=== PATIENT | male | born 1950 | race Caucasian/White ===

== ENCOUNTER 2018-10-21 18:06 | Emergency (ER) | payer OTHER ==
--- OUTSIDE RECORDS SUMMARY | 2018-10-21 18:10 | XMS REPORT | Clinical Summary ---
:1950 Author Organization [facility] Address [address] [place] [address] Care Team Providers Name Role Phone Kilo Graham MD Primary Care Provider Allergies Active Allergy Reactions Severity Noted Date Comments Furosemide Hives Medium 07/30/2018 Penicillins Hives Medium 07/30/2018 Medications Medication Sig Dispensed Refills Start Date End Date Status aspirin 81 MG EC Take 81 mg by 0 Active tablet mouth daily. potassium chloride Take 60 mEq 0 Active SA (KLOR-CON M20) by mouth 20 MEQ tablet daily . budesonide-formoter Inhale 2 0 Active ol (SYMBICORT) puffs by 160-4.5 mouth via mcg/actuation inhaler 2 inhaler (two) times daily. metoprolol Take 1 tablet 60 tablet 2 08/31/2018 08/31/2019 Active (LOPRESSOR) 25 MG (25 mg total) tablet by mouth 2 (two) times daily. eplerenone (INSPRA) Take 25 mg by 0 Active 25 MG tablet mouth daily. torsemide (DEMADEX) Take 10 mg by 0 Active 10 MG tablet mouth daily. metOLazone Take 5 mg by 0 08/14/2018 Discontinued (ZAROXOLYN) 5 MG mouth 5 Mg/ tablet TWICE A WEEK . eplerenone (INSPRA) Take 25 mg by 0 08/14/2018 Discontinued 25 MG tablet mouth daily. torsemide (DEMADEX) Take 10 mg by 0 08/14/2018 Discontinued 20 MG tablet mouth daily. metoprolol Take 50 mg by 0 08/31/2018 Discontinued (LOPRESSOR) 50 MG mouth daily . tablet atorvastatin Take 10 mg by 0 08/14/2018 Discontinued (LIPITOR) 10 MG mouth nightly tablet . ramipril (ALTACE) 5 Take 5 mg by 0 08/14/2018 Discontinued MG capsule mouth daily. roflumilast Take 500 mcg 0 08/14/2018 Discontinued (DALIRESP) 500 mcg by mouth Tab tablet daily. mINOCYCLine Take 1 10 capsule 0 08/02/2018 08/07/2018 (MINOCIN,DYNACIN) capsule (100 100 MG capsule mg total) by mouth 2 (two) times daily for 5 days. hydrOXYzine Take 1 tablet 30 tablet 1 08/14/2018 09/14/2018 Discontinued (ATARAX) 25 MG (25 mg total) tablet by mouth 3 (three) times daily as needed for Itching. levoFLOXacin Take 1 tablet 9 tablet 0 08/31/2018 09/09/2018 (LEVAQUIN) 500 MG (500 mg tablet total) by mouth daily for 9 days. Active Problems Problem Noted Date Malignant neoplasm of body of pancreas 09/24/2018 Sepsis 08/25/2018 Pancreatic mass 08/25/2018 Acute urinary tract infection 08/24/2018 Lung nodule 08/13/2018 Left renal mass 08/13/2018 Morbid obesity 08/13/2018 Hyperbilirubinemia 08/11/2018 Obstructive jaundice 08/10/2018 Hypomagnesemia 08/10/2018 Chronic combined systolic and diastolic heart failure 08/10/2018 SHIRA on CPAP 08/10/2018 Resolved Problems Problem Noted Date Resolved Date Multiple renal cysts 08/13/2018 08/25/2018 OLGA (acute kidney injury) 08/10/2018 08/25/2018 Hyponatremia 08/10/2018 08/25/2018 COPD not affecting current episode of care 08/10/2018 08/25/2018 Cardiomyopathy 08/02/2018 08/25/2018 Encounters Date Type Specialty Care Team Description 09/24/2018 Anesthesia Event Aria Wagner, FOOT CASTER 09/24/2018 Surgery Minda Christensen BRONCHOSCOPY,ENDOB MD Antonio RONCHIAL ULTRASOUND (EBUS) TRANSTRACH/ TRANSBRONCH SAMPLING 09/24/2018 Hospital Minda Christensen Encounter MD Antonio 09/14/2018 Hospital Pre-Admission Testing Resource, [facility] Encounter Preadmit Phone 08/24/2018 - [facility] Internal Ricci Ball Acute urinary tract infection (Primary Dx); 08/31/2018 Encounter Medicine MD Franny OLGA (acute kidney injury) ([facility]); Kellie Puga, Leukocytosis, unspecified type; Weakness; Chantel, Sepsis, due to unspecified organism ([facility]); Leslie Blanton MD Hypotension, unspecified hypotension type; Shamsee, Hypomagnesemia; Shmuel-Isaiah SHIRA on CPAP; MD Jeffery Pancreatic mass; Hematuria, unspecified type; Pyuria; Chronic combined systolic and diastolic heart failure ([facility]); Electrolyte abnormality; Malignant neoplasm of pancreas, unspecified location of malignancy ([facility] ); Lung mass; E. coli septicemia ([facility]); Sepsis due to Escherichia coli ([facility]); Acute cystitis with hematuria; PVC (premature ventricular contraction); Pulmonary nodule; Hyperbilirubinemia; Morbid obesity ([facility]); Biliary obstruction; E coli bacteremia; Lung nodule; Obstructive jaundice 08/24/2018 Travel 08/17/2018 Anesthesia Event Gastroenterology Keira Garsia MD 08/17/2018 Surgery Gastroenterology [facility] ERCP,STENT REMOVAL [place] [facility] [place] 08/12/2018 Anesthesia Event Gastroenterology Leobardo Leos MD 08/12/[address] [facility],PAPILLOTOMY Louis 08/11/2018 Orders Only General Internal Medicine 08/10/2018 - [facility] Obstructive jaundice; 08/14/2018 Encounter Medicine [facility] OLGA (acute kidney injury) ([facility]); Cedric Tate Chronic combined systolic and diastolic heart failure ( [facility]); MD Kishor COPD not affecting current episode of care ([facility]); Hypomagnesemia; Hyponatremia; SHIRA on CPAP; Left renal mass; Lung nodule; Morbid obesity ([facility]) 08/10/2018 Travel 08/02/2018 [facility] [employer] KRISTOPHER CHO (SINGLE LEAD) 08/02/2018 Anesthesia Event Colby Corbett MD 08/02/2018 [facility] Yoel Rosado, Encounter Manjula Sesay MD after 10/20/2017 Social History Tobacco Use Types Packs/Day Years Used Date Current Some Day Smoker 0.5 48 Smokeless Tobacco: Never Used Alcohol Use Drinks/Week oz/Week Comments Yes occasional Alcohol Habits Answer Date Recorded How often do you have a drink containing alcohol? Never 07/30/2018 How many drinks containing alcohol do you have on a typical Not asked day when you are drinking? How often do you have six or more drinks on one occasion? Not asked Sex Assigned at Date Recorded Male 08/22/2018 3:40 PM [facility] Job Start Date Occupation Industry Not on file Not on file Not on file Travel History Travel Start Travel End No recent travel history available. Last Filed Vital Signs Vital Sign Reading Time Taken Blood Pressure 130/90 09/24/2018 2:40 PM CDT Pulse 84 09/24/2018 2:40 PM CDT Temperature 36.6 C (97.9 F) 09/24/2018 1:46 PM CDT Respiratory Rate 20 09/24/2018 2:40 PM CDT Oxygen Saturation 95% 09/24/2018 2:40 PM CDT Inhaled Oxygen Concentration 35% 09/24/2018 12:22 PM CDT Weight 132.5 kg (292 lb 1.6 oz) 09/24/2018 5:55 AM CDT Height 188 cm (6' 2") 09/24/2018 5:55 AM CDT Body Mass Index 37.5 09/24/2018 5:55 AM CDT Plan of Treatment Not on file Implants Implanted Type Area Home Care Consultant Device Shelf Model / Identifier Expiration Serial / Date Lot Env Absrb Antibact Tyrx Med - [id number] Cardiovascular [employer]:CARD [id number] / Implanted: Qty: 1 on 08/02/2018 by Manjula Richards MD RHY: DISEASE MGT / [id number] Stent Bili Rx Wallflx 10x60 - [id number] Stents-Peripheral [employer]:ENDO 06/22/2020 [id number] / Implanted: Qty: 1 on 08/17/2018 by Christian Silver [id number] / [id number] Icd [employer] 09/02/2019 VISIA AF MRI VR SURESCAN / Implanted: Qty: 1 on 08/02/2018 by Manjula Richards MD ( REPLACEMENT) [id number] / [id number] Explanted Type Area Home Care Consultant Device Shelf Model / Identifier Expiration Serial / Lot Date Stent Bili Duodenal [id number] - [id number] Stents-P N/A: [employer]: ENDO 02/08/2020 3432 / Implanted: Qty: 1 on 08/12/2018 by Christian Silver eriphera Bile [id number] / Explanted: Qty: 1 on 08/17/2018 l Duct [id number] Procedures Procedure Name Priority Date/Time Associated Diagnosis Comments ARRYTHMIA IMPLANT 09/29/2018 5:50 REPORT - SCAN PM CDT RHYTHM STRIP - SCAN 09/27/2018 4:02 PM CDT TRANSFUSION SERVICE 09/25/2018 5:53 REPORT - SCAN PM CDT XR CHEST 1 VIEW STAT 09/24/2018 12:56 Results for this PORTABLE/BEDSIDE PM CDT procedure are in the results section. REPORT OF PROCEDURE 09/24/2018 11:37 - ENDOSCOPY URL AM CDT AFB CULTURE + SMEAR Routine 09/24/2018 11:17 AM CDT BRONCHIAL CULTURE + Routine 09/24/2018 11:17 Results for this GRAM STAIN AM CDT procedure are in the results section. FUNGUS CULTURE + Routine 09/24/2018 11:17 Results for this SMEAR AM CDT procedure are in the results section. SPIN/CONCENTRATION Routine 09/24/2018 11:17 Results for this CHARGE AM CDT procedure are in the results section. FL FRONT DESK MONITOR IN OR Routine 09/24/2018 11:10 Results for this 30 MINUTE AM CDT procedure are in INCREMENTS the results section. EBUS FNA REQUEST Routine 09/24/2018 10:02 Results for this AM CDT procedure are in the results section. FINE NEEDLE AP Routine 09/24/2018 10:02 Results for this ASPIRATE BY EBUS AM CDT procedure are in the results section. EBUS FNA REQUEST Routine 09/24/2018 9:54 Results for this AM CDT procedure are in the results section. FINE NEEDLE AP Routine 09/24/2018 9:54 Results for this ASPIRATE BY EBUS AM CDT procedure are in the results section. EBUS FNA REQUEST Routine 09/24/2018 9:50 Results for this AM CDT procedure are in the results section. FINE NEEDLE AP Routine 09/24/2018 9:50 Results for this ASPIRATE BY EBUS AM CDT procedure are in the results section. EBUS FNA REQUEST Routine 09/24/2018 9:49 Results for this AM CDT procedure are in the results section. FINE NEEDLE AP Routine 09/24/2018 9:49 Results for this ASPIRATE BY EBUS AM CDT procedure are in the results section. TISSUE EXAM AP Routine 09/24/2018 9:46 Results for this AM CDT procedure are in the results section. BRONCHOSCOPY,ENDOBR 09/24/2018 8:25 Malignant neoplasm of ONCHIAL ULTRASOUND AM CDT body of pancreas (HCC) (EBUS) DIAGNOSTIC/ Lung nodule THERAPEUTIC Mediastinal lymphadenopathy Special Needs (RADIAL PROBE, C-ARM, SUPER DIMENSION, OLYMPUS/MERIT REP MAY BE PRESENT) BRONCHOSCOPY,SUPER D 09/24/2018 8:25 AM CDT Malignant neoplasm of body of pancreas (HCC) Lung nodule Mediastinal lymphadenopathy Special Needs (RADIAL PROBE, C-ARM, SUPER DIMENSION, OLYMPUS/MERIT REP MAY BE PRESENT) BRONCHOSCOPY,TRANSBRONCHIAL LUNG 09/24/2018 8:25 Malignant neoplasm of body BIOPSY AM CDT of pancreas (HCC) Lung nodule Mediastinal lymphadenopathy Special Needs (RADIAL PROBE, C-ARM, SUPER DIMENSION, OLYMPUS/MERIT REP MAY BE PRESENT) BRONCHOSCOPY,DILATATION 09/24/2018 8:25 AM CDT Malignant neoplasm of body of pancreas (HCC) Lung nodule Mediastinal lymphadenopathy Special Needs (RADIAL PROBE, C-ARM, SUPER DIMENSION, OLYMPUS/MERIT REP MAY BE PRESENT) BRONCHOSCOPY,CRYOTHERAPY TREATMENT 09/24/2018 8:25 AM Malignant neoplasm of body FOR STENOSIS CDT of pancreas (HCC) Lung nodule Mediastinal lymphadenopathy Special Needs (RADIAL PROBE, C-ARM, SUPER DIMENSION, OLYMPUS/MERIT REP MAY BE PRESENT) PROCEDURE W/ C-ARM 09/24/2018 8:25 AM CDT Malignant neoplasm of body of pancreas (HCC) Lung nodule Mediastinal lymphadenopathy Special Needs (RADIAL PROBE, C-ARM, SUPER DIMENSION, OLYMPUS/MERIT REP MAY BE PRESENT) BRONCHOSCOPY,ENDOBRONCHIAL 09/24/2018 8:25 AM Malignant neoplasm of body ULTRASOUND (EBUS) TRANSTRACH/ CDT of pancreas (HCC) TRANSBRONCH SAMPLING Lung nodule Mediastinal lymphadenopathy Special Needs (RADIAL PROBE, C-ARM, SUPER DIMENSION, OLYMPUS/MERIT REP MAY BE PRESENT) ABORH, MANUAL STAT 09/24/2018 7:07 AM CDT CBC W/PLT COUNT & AUTO STAT 09/24/2018 6:55 AM CDT Results for this DIFFERENTIAL procedure are in the results section. TYPE AND SCREEN, AUTOMATED STAT 09/24/2018 6:55 AM CDT PROTHROMBIN TIME/INR STAT 09/24/2018 6:55 AM CDT BASIC METABOLIC PANEL (7) STAT 09/24/2018 6:55 AM CDT CBC W/PLT COUNT & AUTO STAT 09/24/2018 6:55 AM CDT Results for this DIFFERENTIAL procedure are in the results section. POCT-GLUCOSE METER Routine 09/24/2018 5:58 AM CDT RHYTHM STRIP - SCAN 09/02/2018 12:21 PM [facility] REPORT OF PROCEDURE - 09/02/2018 12:20 PM [facility] ENDOSCOPY SCAN CT CHEST WITH HIGH STAT 08/30/2018 6:26 PM [facility] Results for this RESOLUTION/ILD procedure are in the results section. CBC W/PLT COUNT & AUTO Routine 08/30/2018 5:48 AM [facility] Results for this DIFFERENTIAL procedure are in the results section. CBC W/PLT COUNT & AUTO Routine 08/30/2018 5:48 AM [facility] Results for this DIFFERENTIAL procedure are in the results section. COMPREHENSIVE METABOLIC Routine 08/30/2018 5:48 AM [facility] Results for this PANEL procedure are in the results section. PROTHROMBIN TIME/INR Routine 08/30/2018 5:48 AM [facility] APTT Routine 08/30/2018 5:48 AM [facility] MAGNESIUM Routine 08/29/2018 4:23 AM [facility] BASIC METABOLIC PANEL (7) Routine 08/28/2018 4:00 AM [facility] (CELLAVISION MANUAL DIFF) Routine 08/27/2018 4:27 AM [facility] CBC W/PLT COUNT & AUTO Routine 08/27/2018 4:27 AM [facility] Results for this DIFFERENTIAL procedure are in the results section. CBC W/PLT COUNT & AUTO Routine 08/27/2018 4:27 AM [facility] Results for this DIFFERENTIAL procedure are in the results section. MAGNESIUM Routine 08/27/2018 4:27 AM [facility] PHOSPHORUS Routine 08/27/2018 4:27 AM [facility] HEPATIC FUNCTION PANEL Routine 08/27/2018 4:27 AM [facility] BASIC METABOLIC PANEL (7) Routine 08/27/2018 4:[address] ABDOMEN/PELVIS WITH IV Routine 08/27/2018 2:03 AM [facility] Results for this CONTRAST procedure are in the results section. BLOOD CULTURE Routine 08/26/2018 4:02 PM [facility] BLOOD CULTURE Routine 08/26/2018 4:02 PM [facility] URINALYSIS W/ REFLEX URINE Routine 08/26/2018 3:38 PM [facility] Results for this CULTURE procedure are in the results section. URINE CULTURE ZION 08/26/2018 3:18 PM [facility] CBC W/PLT COUNT & AUTO Routine 08/26/2018 5:07 AM [facility] Results for this DIFFERENTIAL procedure are in the results section. CBC W/PLT COUNT & AUTO Routine 08/26/2018 5:07 AM [facility] Results for this DIFFERENTIAL procedure are in the results section. MAGNESIUM Routine 08/26/2018 5:04 AM [facility] PHOSPHORUS Routine 08/26/2018 5:04 AM [facility] HEPATIC FUNCTION PANEL Routine 08/26/2018 5:04 AM [facility] BASIC METABOLIC PANEL (7) Routine 08/26/2018 5:04 AM [facility] LACTIC ACID, VENOUS STAT 08/26/2018 5:04 AM [facility] CRITICAL CARE Routine 08/25/2018 8:05 PM [facility] CBC W/PLT COUNT & AUTO Routine 08/25/2018 11:21 AM [facility] Results for this DIFFERENTIAL procedure are in the results section. CREATINE KINASE (CK) Routine 08/25/2018 11:21 AM [facility] TROPONIN I Routine 08/25/2018 11:21 AM [facility] CBC W/PLT COUNT & AUTO Routine 08/25/2018 11:21 AM [facility] Results for this DIFFERENTIAL procedure are in the results section. MAGNESIUM Routine 08/25/2018 11:21 AM [facility] PHOSPHORUS Routine 08/25/2018 11:21 AM [facility] HEPATIC FUNCTION PANEL Routine 08/25/2018 11:21 AM [facility] US ABDOMEN COMPLETE STAT 08/25/2018 8:50 AM [facility] BASIC METABOLIC PANEL (7) STAT 08/25/2018 4:03 AM [facility] LACTIC ACID, VENOUS STAT 08/25/2018 4:03 AM [facility] URINALYSIS W/ MICROSCOPIC STAT 08/24/2018 8:54 PM [facility] XR CHEST 1 VIEW STAT 08/24/2018 8:00 PM [facility] Results for this PORTABLE/BEDSIDE procedure are in the results section. CBC W/PLT COUNT & AUTO STAT 08/24/2018 7:51 PM [facility] Results for this DIFFERENTIAL procedure are in the results section. BASIC METABOLIC PANEL (7) STAT 08/24/2018 7:51 PM [facility] CBC W/PLT COUNT & AUTO STAT 08/24/2018 7:51 PM [facility] Results for this DIFFERENTIAL procedure are in the results section. PHOSPHORUS STAT 08/24/2018 7:51 PM [facility] MAGNESIUM STAT 08/24/2018 7:51 PM [facility] LIPASE STAT 08/24/2018 7:51 PM [facility] HEPATIC FUNCTION PANEL STAT 08/24/2018 7:51 PM [facility] PROCALCITONIN STAT 08/24/2018 7:51 PM [facility] LACTIC ACID, VENOUS STAT 08/24/2018 7:51 PM [facility] AMMONIA STAT 08/24/2018 7:51 PM [facility] APTT STAT 08/24/2018 7:30 PM [facility] PROTHROMBIN TIME/INR STAT 08/24/2018 7:30 PM [facility] BLOOD CULTURE IDENTIFICATION Routine 08/24/2018 7:29 PM [facility] Results for this PANEL procedure are in the results section. BLOOD CULTURE STAT 08/24/2018 7:29 PM [facility] BLOOD CULTURE STAT 08/24/2018 7:29 PM [facility] ECG 12-LEAD Routine 08/24/2018 6:46 PM [facility] ECG 12-LEAD Routine 08/24/2018 6:46 PM [facility] Procedure Note - Interface, External Ris In - 08/24/2018 8:32 PM [facility] Ventricular Rate 105 BPM Atrial Rate 105 BPM P-R Interval 158 ms QRS Duration 84 ms Q-T Interval 362 ms QTC Calculation(Bazett) 478 ms P [place] 20 degrees R [place] 93 degrees T [place] 30 degrees Sinus tachycardia with frequent Premature ventricular complexes Rightward axis Cannot rule out Anterior infarct (cited on or before 23-JAN-1993) Abnormal ECG When compared with ECG of 12-AUG-2018 08:10, Significant changes have occurred CARDIAC CATH REPORT 08/20/2018 1:31 PM - SCAN [facility] REPORT OF PROCEDURE 08/20/2018 1:31 PM - ENDOSCOPY SCAN [facility] ARRYTHMIA IMPLANT 08/20/2018 1:31 PM REPORT - SCAN [facility] REPORT OF PROCEDURE 08/17/2018 4:59 PM - ENDOSCOPY URL [facility] FL ERCP Routine 08/17/2018 4:47 PM Results for this [facility] procedure are in the results section. ERCP,BILIARY STENT 08/17/2018 3:00 PM Dilation of common [facility] bile duct Special Needs (C-ARM) ERCP,BALLOON SWEEPING 08/17/2018 3:00 PM [facility] Dilation of common bile duct Special Needs (C-ARM) PROCEDURE W/ C-ARM 08/17/2018 3:00 PM [facility] Dilation of common bile duct Special Needs (C-ARM) ERCP,STENT REMOVAL 08/17/2018 3:00 PM [facility] Dilation of common bile duct Special Needs (C-ARM) POCT-GLUCOSE METER Routine 08/14/2018 8:10 Results for this AM [facility] procedure are in the results section. CBC W/PLT COUNT & STAT 08/14/2018 8:08 Results for this AUTO DIFFERENTIAL AM [facility] procedure are in the results section. CBC W/PLT COUNT & STAT 08/14/2018 8:08 Results for this AUTO DIFFERENTIAL AM [facility] procedure are in the results section. MAGNESIUM STAT 08/14/2018 8:08 Results for this AM [facility] procedure are in the results section. COMPREHENSIVE STAT 08/14/2018 8:08 Results for this METABOLIC PANEL AM [facility] procedure are in the results section. CBC (HEMOGRAM ONLY) Routine 08/13/2018 5:28 Results for this AM [facility] procedure are in the results section. COMPREHENSIVE Routine 08/13/2018 5:28 Results for this METABOLIC PANEL AM [facility] procedure are in the results section. MAGNESIUM Routine 08/13/2018 5:28 Results for this AM [facility] procedure are in the results section. CT ABDOMEN/PELVIS Routine 08/13/2018 4:22 Results for this WITH IV CONTRAST AM [facility] procedure are in the results section. CT CHEST WITH IV Routine 08/13/2018 4:22 Results for this CONTRAST AM [facility] procedure are in the results section. REPORT OF PROCEDURE - 08/12/2018 7:02 ENDOSCOPY URL PM [facility] REPORT OF PROCEDURE - 08/12/2018 6:50 ENDOSCOPY URL PM [facility] FL ERCP Routine 08/12/2018 6:31 Results for this PM [facility] procedure are in the results section. CYTOLOGY REQUEST Routine 08/12/2018 6:02 Results for this PM [facility] procedure are in the results section. CYTOLOGY AP Routine 08/12/2018 6:02 Results for this PM [facility] procedure are in the results section. FINE NEEDLE ASPIRATE Routine 08/12/2018 5:11 Results for this (FNA) REQUEST PM [facility] procedure are in the results section. FINE NEEDLE AP Routine 08/12/2018 5:11 Results for this ASPIRATION BY PM [facility] procedure are in CLINICIAN the results section. TISSUE EXAM AP Routine 08/12/2018 4:44 Results for this PM [facility] procedure are in the results section. ERCP,BILIARY STENT 08/12/2018 4:00 Jaundice PM [facility] Biliary obstruction Special Needs (POSSIBLE INTUBATION, C-ARM, LINEAR SCOPE) UPPER ENDOSCOPY,BIOPSY 08/12/2018 4:00 PM [facility] Jaundice Biliary obstruction Special Needs (POSSIBLE INTUBATION, C-ARM, LINEAR SCOPE) PROCEDURE W/ C-ARM 08/12/2018 4:00 PM [facility] Jaundice Biliary obstruction Special Needs (POSSIBLE INTUBATION, C-ARM, LINEAR SCOPE) UPPER ENDOSCOPY,FNA 08/12/2018 4:00 PM [facility] Jaundice W/ULTRASOUND Biliary obstruction Special Needs (POSSIBLE INTUBATION, C-ARM, LINEAR SCOPE) ERCP,PAPILLOTOMY 08/12/2018 4:00 PM [facility] Jaundice Biliary obstruction Special Needs (POSSIBLE INTUBATION, C-ARM, LINEAR SCOPE) MAGNESIUM Routine 08/12/2018 2:29 PM [facility] BASIC METABOLIC PANEL (7) Routine 08/12/2018 2:29 PM [facility] ECG 12-LEAD Routine 08/12/2018 8:10 AM [facility] MAGNESIUM Routine 08/12/2018 5:48 AM [facility] COMPREHENSIVE METABOLIC Routine 08/12/2018 5:48 AM [facility] Results for this PANEL procedure are in the results section. CBC (HEMOGRAM ONLY) Routine 08/12/2018 5:48 AM [facility] OSMOLALITY, URINE Routine 08/11/2018 7:32 PM [facility] SODIUM, RANDOM URINE Routine 08/11/2018 7:32 PM [facility] NM CARDIAC PET PERFUSION ZION 08/11/2018 11:10 AM [facility] Results for this REST AND/OR STRESS procedure are in the results section. TREADMILL Routine 08/11/2018 11:07 AM [facility] Results for this TOLERANCE(NON-NUCLEAR procedure are in the TREADMILL) results section. ECG 12-LEAD Routine 08/11/2018 11:05 AM [facility] ECG 12-LEAD Routine 08/11/2018 11:05 AM [facility] Procedure Note - Interface, External Ris In - 08/11/2018 11:31 AM [facility] Ventricular Rate 81 BPM Atrial Rate 81 BPM P-R Interval 212 ms QRS Duration 110 ms Q-T Interval 470 ms QTC Calculation(Bazett) 545 ms P [place] 68 degrees R [place] 86 degrees T [place] 60 degrees Sinus rhythm with marked sinus arrhythmia with 1st degree A-V block Septal infarct , age undetermined Prolonged QT Abnormal ECG ECG 12-LEAD Routine 08/11/2018 10:54 AM [facility] ECG 12-LEAD Routine 08/11/2018 10:54 AM [facility] Procedure Note - Interface, External Ris In - 08/11/2018 11:31 AM [facility] Ventricular Rate 95 BPM Atrial Rate 117 BPM QRS Duration 112 ms Q-T Interval 466 ms QTC Calculation(Bazett) 585 ms P [place] 67 degrees R [place] 87 degrees T [place] 53 degrees Undetermined rhythm Septal infarct , age undetermined Prolonged QT Abnormal ECG CBC W/PLT COUNT & AUTO Routine 08/11/2018 4:05 AM Results for this DIFFERENTIAL [facility] procedure are in the results section. CBC W/PLT COUNT & AUTO Routine 08/11/2018 4:05 AM Results for this DIFFERENTIAL [facility] procedure are in the results section. PHOSPHORUS Routine 08/11/2018 4:05 AM Results for this [facility] procedure are in the results section. MAGNESIUM Routine 08/11/2018 4:05 AM Results for this [facility] procedure are in the results section. COMPREHENSIVE METABOLIC Routine 08/11/2018 4:05 AM Results for this PANEL [facility] procedure are in the results section. B-TYPE NATRIURETIC Routine 08/11/2018 4:05 AM Results for this FACTOR (BNP) [facility] procedure are in the results section. CBC W/PLT COUNT & AUTO ZION 08/10/2018 3:26 PM Results for this DIFFERENTIAL [facility] procedure are in the results section. PROTHROMBIN TIME/INR ZION 08/10/2018 3:26 PM Results for this [facility] procedure are in the results section. PHOSPHORUS ZION 08/10/2018 3:26 PM Results for this [facility] procedure are in the results section. MAGNESIUM ZION 08/10/2018 3:26 PM Results for this [facility] procedure are in the results section. COMPREHENSIVE METABOLIC ZION 08/10/2018 3:26 PM Results for this PANEL [facility] procedure are in the results section. CBC W/PLT COUNT & AUTO ZION 08/10/2018 3:26 PM Results for this DIFFERENTIAL [facility] procedure are in the results section. AICD GENERATOR - REMOVE 08/02/2018 7:30 AM AICD at end of & REPLACE (SINGLE LEAD) [facility] battery life Case Notes (1) CASE POP6 MAGNESIUM STAT 08/02/2018 6:11 AM [facility] BASIC METABOLIC PANEL (7) STAT 08/02/2018 6:11 AM [facility] CBC (HEMOGRAM ONLY) STAT 08/02/2018 6:11 AM [facility] PROTHROMBIN TIME/INR STAT 08/02/2018 6:11 AM [facility] after 10/20/2017 Results ARRYTHMIA IMPLANT REPORT - SCAN (09/29/2018 5:50 PM CDT)Only the most recent of2 resultswithin the time period is included. Narrative Performed At RHYTHM STRIP - SCAN (09/27/2018 4:02 PM CDT)Only the most recent of2 resultswithin the time period is included. Narrative Performed At TRANSFUSION SERVICE REPORT - SCAN (09/25/2018 5:53 PM CDT) Narrative Performed At XR chest 1 view portable / bedside (09/24/2018 12:56 PM CDT)Only the most recent of2 resultswithin the time period is included. Narrative Performed At FINAL REPORT [facility] Portable chest. CLINICAL HISTORY: s/p RLL TBBX, cough, RULE OUT PTX. COMPARISON STUDY: August 24, 2018. FINDINGS: The cardiac silhouette is unremarkable. Sternotomy wires are seen. The pulmonary parenchyma demonstrates interstitial and airspace opacities, most pronounced in the right mid to lower lung field and more pronounced than on previous. A pacer device remains No pneumothorax is seen. Degenerative changes are noted. IMPRESSION: Worsening pulmonary opacities particularly in the right mid to lower lung field. This could represent pneumonia or bleeding in the right clinical setting. Signed: Alberto Otoole MD Report Verified Date/Time:09/24/2018 13:43:14 Reading Location: [address] Consult Reading Room Procedure Note Interface, External Ris In - 09/24/2018 1:45 PM CDT FINAL REPORT Portable chest. CLINICAL HISTORY: s/p RLL TBBX, cough, RULE OUT PTX. COMPARISON STUDY: August 24, 2018. FINDINGS: The cardiac silhouette is unremarkable. Sternotomy wires are seen. The pulmonary parenchyma demonstrates interstitial and airspace opacities, most pronounced in the right mid to lower lung field and more pronounced than on previous. A pacer device remains No pneumothorax is seen. Degenerative changes are noted. IMPRESSION: Worsening pulmonary opacities particularly in the right mid to lower lung field. This could represent pneumonia or bleeding in the right clinical setting. Signed: Alberto Otoole MD Report Verified Date/Time: 09/24/2018 13:43:14 Reading Location: [facility] Consult Reading Room Performing Organization Address City/State/Zipcode Phone Number GE RIS REPORT OF PROCEDURE - ENDOSCOPY URL (09/24/2018 11:37 AM CDT) Narrative Performed At Bronchial culture + gram stain (09/24/2018 11:17 AM CDT) Result 1+ Normal respiratory sofya [facility] Gram Stain Result <1+ WBCs [facility] Gram Stain Result No organisms seen [facility] Specimen BAL - Lung, Right Upper and Lower Lobes Performing Organization Address [facility]/Zipcode Phone Number [facility] [address] [place] [phone] [place] Fungus culture + smear (09/24/2018 11:17 AM CDT) Result No fungus isolated in 28 days [facility] Fungus Smear No fungi seen [facility] Specimen BAL - Lung, Right Upper and Lower Lobes Performing Organization Address City/[facility]/Zipcode Phone Number [facility] [address] [place] [address] [phone] [place] SPIN/CONCENTRATION CHARGE (09/24/2018 11:17 AM CDT) Concentration charged Done [facility] Specimen BAL - Lung, Right Upper and Lower Lobes Performing Organization Address [facility] Phone Number [facility] [address] [place] [phone] [place] aircraft mechanic electrical and radio in or 30 minute increments (09/24/2018 11:10 AM CDT) Narrative Performed At FINAL REPORT RIS Intraoperative fluoroscopy. CLINICAL HISTORY: surgical procedurd. FINDINGS: Zero fluoroscopically acquired images were acquired by the referring physician. An intraoperative verbal report was not requested. Fluoroscopy was not performed by the undersigned. Fluoroscopy time: 256 seconds. Zero images. Signed: Alberto Otoole MD Report Verified Date/Time:09/24/2018 13:58:14 Reading Location: [address] Consult Reading Room Procedure Note Interface, External Ris In - 09/24/2018 2:00 PM CDT FINAL REPORT Intraoperative fluoroscopy. CLINICAL HISTORY: surgical procedurd. FINDINGS: Zero fluoroscopically acquired images were acquired by the referring physician. An intraoperative verbal report was not requested. Fluoroscopy was not performed by the undersigned. Fluoroscopy time: 256 seconds. Zero images. Signed: Alberto Otoole MD Report Verified Date/Time: 09/24/2018 13:58:14 Reading Location: [facility] Consult Reading Room Performing Organization Address City/[facility]/Zipcode Phone Number GE RIS EBUS FNA REQUEST (09/24/2018 10:02 AM CDT)Only the most recent of4 resultswithin the time period is included. Cytology See Separate Report [facility] Specimen EBUS Fine Needle Aspirate - Lymph Node, Interlobar, Right, Station 11R Performing Organization Address City/[facility] [place] [address] CENTER Fine Needle Aspiration by EBUS (09/24/2018 10:02 AM CDT)Only the most recent of4 resultswithin the time period is included. Case Report Medical Cytology Report Case: [id number] [facility] Authorizing Provider:Minda Christensen MDCollected: 09/24/2018 1002 [facility] Ordering Location: [facility] PERIOPERATIVE Received: 09/24/2018 1405 SERVICES Pathologist: Deann Preciado MD Specimen:Lymph Node, Interlobar, Right, Station 11R DIAGNOSIS LYMPH NODE, INTERLOBAR RIGHT, STATION 11R EBUS FNA BY CLINICIAN ( CYTOSPINS AND CELL BLOCK OF ASPIRATE): [facility] - NEUROENDOCRINE TUMOR, LOW GRADE [facility] Signing Pathologist Direct Phone Line: [phone] COMMENT The Ki67 labeling index is <1%, mitoses are < 1?per mm2 and no necrosis is seen in the FNA sample. These are supportive of a low grade neuroendocrine tumor (typical carcinoid). However small [facility] ple size precludes accurate classification. Correlation with the concurrent lung biopsy [id number] and other clinical studies is recommended. [facility] The diagnosis was conveyed to Minda Christensen MD on 09/29/18 at 4:42 pm by secure e -mail. INTRADEPARTMENTAL CONSULTATION: - Sydney Bowens MD has seen the case and agrees with the diagnosis. Please also see [id number] through 792. CPT Code(s) 51990, 39922, 20940, 94496 x 5, [facility] [id number] [facility] CLINICAL DATA Mediastinal lymphadenopathy, [facility] lung nodule, malignant neoplasm [facility] of pancreas SPECIMEN SOURCE LYMPH NODE, INTERLOBAR RIGHT, [facility] STATION 11R EBUS FNA [facility] GROSS DESCRIPTION 35 mls in cytorich red; 2 cytospins, cell block [facility] Collected: [id number] [facility] Received: [id number] SPECIAL STUDIES The interpretation of this case included the use of immunohistochemistry or special stains on the cell block. [facility] TTF1-negative [facility] Napsin A-negative Chromogranin-positive, diffuse Synaptophysin-positive, diffuse Ki67-<1% CAM5.2-positive, diffuse [id number] Controls are adequate. Immunohistochemistry technical testing was performed at [facility], Pathology Laboratory where it was developed and its performance characteristics were determined. It has not be en cleared or approved by the U.S. Food and Drug Administration. The FDA has determined that such clearance or approval is not necessary. The test is used for clinical purposes. It should not be regarde d as investigational or for research. This laboratory is certified under the Clinical Laboratory Improvement Amendments of 1988 (CLIA-88) as qualified to perform high complexity clinical laboratory testing. Gross assessment was [facility] performed at [place], Department of [facility] Pathology, [address] [place] [id number], Technical component was [facility] performed at [place], Department of [facility] Pathology, [address] [place] [address], Professional component [facility] was performed at Center, Department of [facility] Pathology, [address] [place] [address], Specimen EBUS Fine Needle Aspirate - Lymph Node, Interlobar, Right, Station 11R Narrative Performed At Performing Organization Address City/State/Zipcode Phone Number [facility] [address] [place] [address] CENTER Tissue Exam (09/24/2018 9:46 AM CDT)Only the most recent of2 resultswithin the time period is included. Case Report Surgical Pathology Report Case: [id number] [facility] Authorizing Provider:Minda Christensen MDCollected: 09/24/2018 0946 [facility] Ordering Location: [facility] PERIOPERATIVE Received: 09/24/2018 1356 SERVICES Pathologist: Sari Anderson MD Specimens: A) - Lung, Right Upper Lobe, EBBX, PROCESS IN CYTOLOGY FOR COLLODION BAG, REFLEX GENETIC MARKERS. B) - Lung, Right Lower Lobe, TBBX, PROCESS IN CYTOLOGY FOR COLLODION BAG, REFLEX GENETIC MARKERS. DIAGNOSIS A. LUNG, RIGHT UPPER LOBE, ENDOBRONCHIAL BIOPSY: [facility] - ENDOBRONCHIAL LIPOMA [facility] - INFLAMED AND DENUDED AIRWAY EPITHELIUM - NEGATIVE FOR MALIGNANCY B. LUNG, RIGHT LOWER LOBE, TRANSBRONCHIAL BIOPSY: - NEUROENDOCRINE CARCINOMA, LOW GRADE (TYPICAL CARCINOID) Signing Pathologist Direct Phone Line: [phone] COMMENT B. Mitoses are not readily [facility] identified (<1/10 HPF). No [facility] necrosis is seen. Immunostains show the tumor to be positive for synaptophysin, while negative for TTF-1, and Napsin-A. Ki-67 proliferative index is approximately 2%. CPT Code(s) 11836 X 2 [facility] [id number] [facility] [id number] GROSS DESCRIPTION Specimen A: The specimen is received in a formalin-filled container and labeled with the patient's information and labeled "Right upper lobe lung EBBX" and consists of one fragment of baron off white soft [facility] tissue and hemorrhagic soft tissue measuring 0.9 X 0.6 cm submitted entirely A2. One fragment solid, hard, floating opaque baron off white tissue measuring 0.4 x 0.2 cm, and three fragments of fatty tiss [facility] ue measuring 0.1 cm each, submitted entirely A2 . Specimen B: The specimen is ,received in a formalin-filled container and labeled with the patient's information and labeled "Right lower lobe lung TBBX" and consists of twenty fragments of baron off white soft tissue and hemorrhagic soft tissue measuring 0.2 cm each , submitted entirely B1. MICROSCOPIC DESCRIPTION Performed. [facility] SPECIAL STUDIES The interpretation of this case included the use of immunohistochemistry or special stains. [facility] Immunohistochemistry technical testing was performed at [facility], Pathology Laboratory where it was developed and its performance characteristics were determined. It has not be en cleared or approved by the U.S. Food and Drug Administration. The FDA has determined that such clearance or approval is not necessary. The test is used for clinical purposes. It should not be regarde d as investigational or for research. This laboratory is certified under the Clinical Laboratory Improvement Amendments of 1988 (CLIA-88) as qualified to perform high complexity clinical laboratory testing. Specimen Tissue - Lung, Right Upper Lobe Narrative Performed At Performing Organization Address City/State/Zipcode Phone Number [address] [address] CENTER ABORH, manual (09/24/2018 7:07 AM CDT) ABO Grouping B [facility] [place] Rh Factor POS [facility] Specimen Blood Performing Organization Address [facility]/Zipcode Phone Number [address] [phone] Type and screen, automated (09/24/2018 6:55 AM CDT) ABO/RH AUTOMATED (BEAKER) B POSITIVE [facility] Ab Scrn NEGATIVE [facility] Specimen Blood Performing Organization Address City/State/Zipcode Phone Number [facility], [place] [address] [place] [address] CBC with platelet count + automated diff (09/24/2018 6:55 AM CDT)Only the most recent of9 resultswithin the time period is included. WBC 9.9 3.5 - 10.5 K/L [facility] RBC 4.83 4.63 - 6.08 M/L [facility] Hemoglobin 13.4 (L) 13.7 - 17.5 GM/DL [facility] Hematocrit 41.1 40.1 - 51.0 % [facility] MCV 85.1 79.0 - 92.2 fL [facility] MCH 27.7 25.7 - 32.2 pg [facility] MCHC 32.6 32.3 - 36.5 GM/DL [facility] RDW 16.6 (H) 11.6 - 14.4 % [facility] Platelets 209 150 - 450 K/CU MM [facility] MPV 10.6 9.4 - 12.4 fL [facility] nRBC 0 0 - 0 /100 WBC [facility] % Neutros 68 % [facility] % Lymphs 22 % [facility] % Monos 6 % [facility] % Eos 2 % [facility] % Baso 1 % [facility] # Neutros 6.73 (H) 1.78 - 5.38 K/L [facility] # Lymphs 2.20 1.32 - 3.57 K/L [facility] # Monos 0.59 0.30 - 0.82 K/L [facility] # Eos 0.24 0.04 - 0.54 K/L [facility] # Baso 0.07 0.01 - 0.08 K/L [facility] Immature Granulocytes-Relative 0 0 - 1 % [facility] Specimen Blood Performing Organization Address City/[facility] Phone Number [address] [address] CENTER Prothrombin time/INR (09/24/2018 6:55 AM CDT)Only the most recent of5 resultswithin the time period is included. Protime 13.1 11.7 - 14.7 seconds [facility] INR 1.0 <=5.9 [facility] Specimen Blood Narrative Performed At RECOMMENDED COUMADIN/WARFARIN INR THERAPY [facility] RANGES STANDARD DOSE: 2.0 - 3.0 Includes: PROPHYLAXIS for venous thrombosis, systemic embolization; TREATMENT for venous thrombosis and/or pulmonary embolus. HIGH RISK: Target INR is 2.5-3.5 for patients with mechanical heart valves. Performing Organization Address City/[facility] Phone Number [address] [address] CENTER Basic Metabolic Panel (09/24/2018 6:55 AM CDT)Only the most recent of8 resultswithin the time period is included. Sodium 139 136 - 145 meq/L [facility] Potassium 3.2 (L)Comment: Specimen 3.5 - 5.1 meq/L [facility] slightly hemolyzed [facility] [place] Chloride 99 98 - 107 meq/L [facility] CO2 25 22 - 29 meq/L [facility] BUN 18 7 - 21 mg/dL [facility] Creatinine 0.81Comment: Specimen 0.57 - 1.25 mg/dL [facility] slightly hemolyzed [facility] Glucose 121 (H) 70 - 105 mg/dL [facility] Calcium 9.7 8.4 - 10.2 mg/dL [facility] EGFR 96Comment: ESTIMATED GFR IS mL/min/1.73 sq m [facility] NOT ACCURATE CREATININE [facility] CLEARANCE IN PREDICTING GLOMERULAR FILTRATION RATE. ESTIMATED GFR IS NOT APPLICABLE FOR DIALYSIS PATIENTS. Specimen Blood Performing Organization Address City/[facility] Phone Number [address] [address] CENTER POC-Glucose meter (09/24/2018 5:58 AM CDT)Only the most recent of2 resultswithin the time period is included. POC-Glucose Meter 136 (H)Comment: TESTED AT 70 - 110 mg/dL [address] [address] Specimen Blood Performing Organization Address City/[facility] Phone Number [address] [address] [phone] [place] EKG-SCANNED (09/02/2018 12:20 PM [facility])Only the most recent of2 resultswithin the time period is included. Narrative Performed At CT chest with high resolution/ild (08/30/2018 6:26 PM [facility]) Narrative Performed At FINAL REPORT [employer] CT Chest without contrast History: Lung nodules Comparison: 08/13/2018 Technique: serial axial imaging was performed without intravenous contrast as per departmental protocol.Multiplanar images are reconstructed and reviewed when indicated. This CT examination is performed using one or more of the following dose reduction techniques: Automated exposure control, adjustment of the mA and /or kV according to patient size, and/or use of iterative reconstruction technique. Findings: No mediastinal lymphadenopathy. No definite hilar enlargement. Normal size heart.No pericardial effusion.Significant underlying atherosclerotic disease, with postoperative changes of prior CABG surgery. No thoracic aortic aneurysm.Normal caliber of main pulmonary trunk. Patent central airways.Interval development of a small right pleural effusion. No pneumothorax is appreciated.Focal airspace disease has developed within the medial, inferior right lower lobe, which is probably subsegmental atelectasis. A 2.2 cm right lower lobe nodule is unchanged in size. Increasing bilateral groundglass densities are noted within the lower lobes and posterior portions of the upper lobes.. Partially visualized common bile duct stent within the upper abdomen. No aggressive osseous lesion. Impression: 1. Increasing bilateral groundglass opacities, which could represent multifocal pneumonia or interstitial lung disease. 2. Small right pleural effusion. 3. Unchanged 2.2 cm right lower lobe nodule. Signed: Louis Cronin MD Report Verified Date/Time:08/30/2018 19:09:11 Reading Location: [facility] Mammo Reading Room Procedure Note Interface, External Ris In - 08/30/2018 7:11 PM [facility] FINAL REPORT CT Chest without contrast History: Lung nodules Comparison: 08/13/2018 Technique: serial axial imaging was performed without intravenous contrast as per departmental protocol. Multiplanar images are reconstructed and reviewed when indicated. This CT examination is performed using one or more of the following dose reduction techniques: Automated exposure control, adjustment of the mA and /or kV according to patient size, and/or use of iterative reconstruction technique. Findings: No mediastinal lymphadenopathy. No definite hilar enlargement. Normal size heart. No pericardial effusion. Significant underlying atherosclerotic disease, with postoperative changes of prior CABG surgery. No thoracic aortic aneurysm. Normal caliber of main pulmonary trunk. Patent central airways. Interval development of a small right pleural effusion. No pneumothorax is appreciated. Focal airspace disease has developed within the medial, inferior right lower lobe, which is probably subsegmental atelectasis. A 2.2 cm right lower lobe nodule is unchanged in size. Increasing bilateral groundglass densities are noted within the lower lobes and posterior portions of the upper lobes.. Partially visualized common bile duct stent within the upper abdomen. No aggressive osseous lesion. Impression: 1. Increasing bilateral groundglass opacities, which could represent multifocal pneumonia or interstitial lung disease. 2. Small right pleural effusion. 3. Unchanged 2.2 cm right lower lobe nodule. Signed: Louis Cronin MD Report Verified Date/Time: 08/30/2018 19:09:11 Reading Location: [facility] Mammo Reading Room Performing Organization Address City/State/Zipcode Phone Number GE RIS aPTT (08/30/2018 5:48 AM [facility])Only the most recent of2 resultswithin the time period is included. PTT 34.0 22.5 - 36.0 seconds [facility] Specimen Blood - Arm, Left Performing Organization Address City/[facility]/Zipcode Phone Number [address] [address] CENTER Comprehensive metabolic panel (08/30/2018 5:48 AM [facility])Only the most recent of6 resultswithin the time period is included. Protein, Total 5.9 (L) 6.0 - 8.3 gm/dL [facility] Albumin 2.5 (L) 3.5 - 5.0 g/dL [facility] Alkaline Phosphatase 147 40 - 150 U/L [facility] Total Bilirubin 3.2 (H) 0.2 - 1.2 mg/dL [facility] Sodium 137 136 - 145 meq/L [facility] Potassium 4.0 3.5 - 5.1 meq/L [facility] Chloride 104 98 - 107 meq/L [facility] CO2 25 22 - 29 meq/L [facility] BUN 12 7 - 21 mg/dL [facility] Creatinine 0.64 0.57 - 1.25 mg/dL [facility] Glucose 86 70 - 105 mg/dL [facility] Calcium 8.8 8.4 - 10.2 mg/dL [facility] AST 49 (H) 5 - 34 U/L [facility] ALT 48 6 - 55 U/L [facility] EGFR 126Comment: ESTIMATED mL/min/1.73 sq m [facility] GFR IS NOT ACCURATE [facility] CREATININE CLEARANCE IN PREDICTING GLOMERULAR FILTRATION RATE. ESTIMATED GFR IS NOT APPLICABLE FOR DIALYSIS PATIENTS. Specimen Blood - Arm, Left Narrative Performed At Specimen slightly icteric [facility] Performing Organization Address City/State/Zipcode Phone Number [address] [address] [phone] CENTER Magnesium (08/29/2018 4:23 AM [facility])Only the most recent of12 resultswithin the time period is included. Magnesium 1.5 (L) 1.6 - 2.6 mg/dL [facility] Specimen Blood Performing Organization Address City/[facility]/Zipcode Phone Number [address] [address] [phone] CENTER Manual Differential (08/27/2018 4:27 AM [place] [facility]) % Neutros 75 % [facility] % Lymphs 15 % [facility] % Monos 5 % [facility] % Eos 2 % [facility] % Atypical Lymphs 3 (H) 0 - 0 % [facility] # Neutros 7.20 (H) 1.78 - 5.38 K/ul [facility] # Lymphs 1.44 1.32 - 3.57 K/ul [facility] # Monos 0.48 0.30 - 0.82 K/uL [facility] # Eos 0.19 0.04 - 0.54 K/uL [facility] # Atypical Lymphs 0.29 (H) 0.00 - 0.00 K/uL [facility] Total Counted 100 [facility] WBC Morphology Normal [facility] Large Platelet Present [facility] Polychromasia 1+ few [facility] Hypochromia 1+ few [facility] Artifact Present [facility] Platelet Conc Adequate [facility] Specimen Blood - Arm, Left Narrative Performed At Received comment: [facility] User comments: Slide comments: Performing Organization Address City/[facility] Phone Number [address] [address] [place] Phosphorus (08/27/2018 4:27 AM [facility])Only the most recent of6 resultswithin the time period is included. Phosphorus 2.8 2.3 - 4.7 mg/dL [facility] Specimen Blood - Arm, Left Performing Organization Address [facility] Phone Number [address] [address] [place] Hepatic function panel (08/27/2018 4:27 AM [facility])Only the most recent of4 resultswithin the time period is included. Protein, Total 5.8 (L) 6.0 - 8.3 gm/dL [facility] Albumin 2.5 (L) 3.5 - 5.0 g/dL [facility] [facility] Total Bilirubin 4.1 (H) 0.2 - 1.2 mg/dL [facility] Bilirubin, Direct 3.1 (H) 0.1 - 0.5 mg/dL [facility] Alkaline Phosphatase 162 (H) 40 - 150 U/L [facility] AST 61 (H) 5 - 34 U/L [facility] ALT 49 6 - 55 U/L [facility] Specimen Blood - Arm, Left Narrative Performed At Specimen slightly icteric [facility] Performing Organization Address [facility] Phone Number [address] abdomen/pelvis with IV contrast (08/27/2018 2:03 AM [facility])Only the most recent of2 resultswithin the time period is included. Narrative Performed At FINAL REPORT Consignd CT, ABDOMEN \\T\\ PELVIS, WITH IV CONTRAST INDICATION: Sepsis e coli bacteremia COMPARISON: CT abdomen pelvis dated 08/13/2017. TECHNIQUE: Post contrast abdomen and pelvis CT.Coronal and sagittal reformatted images obtained. DOSE REDUCTION: Dose modulation, iterative reconstruction, and/or weight-based adjustment of the mA/kV was utilized to reduce the radiation dose to as low as reasonably achievable. FINDINGS: Examination limited by poor contrast opacification of intravascular structures. Lower thorax: Minimal bilateral lower lobe atelectasis. Incomplete evaluated groundglass airspace opacities in the right lower lobe superiorly may represent atypical infection in the proper clinical setting. No pneumothorax or pleural effusion. The heart is normal in size. No pericardial effusion. Incompletely evaluated pacer leads in the right ventricle. Liver: Limited evaluation of pelvic parenchyma given timing of contrast however no discrete lesions are identified. Gallbladder and biliary tree: Thickening of the gallbladder wall with gas in the gallbladder lumen. Gallbladder is nondistended. Trace pericholecystic fluid. There is a metal stent within the common bile duct. Pneumobilia is again noted. Pancreas: Incompletely evaluated pancreatic head mass is unchanged 2.9 m cystic structure in the uncinate. Spleen: No acute findings Adrenal Glands: No acute findings. Kidneys and ureters: No hydronephrosis or nephrolithiasis. Multiple simple bilateral renal cysts the largest of which is exophytic from the left lower pole measuring 20.5 cm. There is an indeterminant exophytic left upper pole renal lesion measuring 1.5 cm. No hydroureter. Bladder and reproductive organs: Bladder is unremarkable. Prostate gland is normal. Stomach and Duodenum: No significant findings. Small and large intestine: Diverticulosis of the large bowel without evidence of acute diverticulitis. Small and large bowel are normal in caliber. Appendix: Normal. Major vascular structures: The abdominal aorta is normal in caliber with atherosclerotic calcifications. Peritoneum and retroperitoneum: Mild mesenteric stranding stranding the pancreatic head. No pathologically enlarged retroperitoneal lymph nodes. No pneumoperitoneum. No drainable fluid collection. Skeleton: No acute bony abnormality. Additional findings: None. IMPRESSION: Examination limited by poor contrast opacification of intravascular structures. Incompletely evaluated groundglass airspace opacities in the right lower lobe superiorly may represent atypical infection in the proper clinical setting. Nonspecific collateral thickening with adjacent pericholecystic inflammatory changes, recommend further evaluation with HIDA scan to evaluate for acute cholecystitis. Incompletely evaluated pancreatic head mass is unchanged 2.9 m cystic structure in the uncinate are again seen. There is an indeterminant exophytic left upper pole renal lesion measuring 1.5 cm., Recommend further evaluation with renal protocol cross-sectional imaging. Signed: Kobi Burgos MD Report Verified Date/Time:08/27/2018 03:42:37 Reading Location: [address] Transitional Reading Room Procedure Note Interface, External Ris In - 08/27/2018 3:44 AM [facility] FINAL REPORT CT, ABDOMEN \\T\\ PELVIS, WITH IV CONTRAST INDICATION: Sepsis e coli bacteremia COMPARISON: CT abdomen pelvis dated 08/13/2017. TECHNIQUE: Post contrast abdomen and pelvis CT. Coronal and sagittal reformatted images obtained. DOSE REDUCTION: Dose modulation, iterative reconstruction, and/or weight-based adjustment of the mA/kV was utilized to reduce the radiation dose to as low as reasonably achievable. FINDINGS: Examination limited by poor contrast opacification of intravascular structures. Lower thorax: Minimal bilateral lower lobe atelectasis. Incomplete evaluated groundglass airspace opacities in the right lower lobe superiorly may represent atypical infection in the proper clinical setting. No pneumothorax or pleural effusion. The heart is normal in size. No pericardial effusion. Incompletely evaluated pacer leads in the right ventricle. Liver: Limited evaluation of pelvic parenchyma given timing of contrast however no discrete lesions are identified. Gallbladder and biliary tree: Thickening of the gallbladder wall with gas in the gallbladder lumen. Gallbladder is nondistended. Trace pericholecystic fluid. There is a metal stent within the common bile duct. Pneumobilia is again noted. Pancreas: Incompletely evaluated pancreatic head mass is unchanged 2.9 m cystic structure in the uncinate. Spleen: No acute findings Adrenal Glands: No acute findings. Kidneys and ureters: No hydronephrosis or nephrolithiasis. Multiple simple bilateral renal cysts the largest of which is exophytic from the left lower pole measuring 20.5 cm. There is an indeterminant exophytic left upper pole renal lesion measuring 1.5 cm. No hydroureter. Bladder and reproductive organs: Bladder is unremarkable. Prostate gland is normal. Stomach and Duodenum: No significant findings. Small and large intestine: Diverticulosis of the large bowel without evidence of acute diverticulitis. Small and large bowel are normal in caliber. Appendix: Normal. Major vascular structures: The abdominal aorta is normal in caliber with atherosclerotic calcifications. Peritoneum and retroperitoneum: Mild mesenteric stranding stranding the pancreatic head. No pathologically enlarged retroperitoneal lymph nodes. No pneumoperitoneum. No drainable fluid collection. Skeleton: No acute bony abnormality. Additional findings: None. IMPRESSION: Examination limited by poor contrast opacification of intravascular structures. Incompletely evaluated groundglass airspace opacities in the right lower lobe superiorly may represent atypical infection in the proper clinical setting. Nonspecific collateral thickening with adjacent pericholecystic inflammatory changes, recommend further evaluation with HIDA scan to evaluate for acute cholecystitis. Incompletely evaluated pancreatic head mass is unchanged 2.9 m cystic structure in the uncinate are again seen. There is an indeterminant exophytic left upper pole renal lesion measuring 1.5 cm., Recommend further evaluation with renal protocol cross-sectional imaging. Signed: Kobi Burgos MD Report Verified Date/Time: 08/27/2018 03:42:37 Reading Location: [address] Transitional Reading Room Performing Organization Address City/[facility]/Zipcode Phone Number [facility] Blood Culture - Routine (Left Venipuncture) (08/26/2018 4:02 PM [facility])Only the most recent of4 resultswithin the time period is included. Result No growth in 5 days [facility] Specimen Blood - Arm, Right Performing Organization Address [facility]/Zipcode Phone Number [address] [address] [phone] CENTER Urinalysis w/Microscopic + Reflex to Culture (08/26/2018 3:38 PM [facility]) Color, UA Yellow [facility] Clarity, UA Hazy [facility] Specific Saffell, UA 1.012 1.001 - 1.035 [facility] pH, UA 5.5 5.0 - 8.0 [facility] Protein, UA 20 mg/dL (A) Negative [facility] Glucose, UA Negative Negative [facility] Ketones, UA Negative Negative [facility] Bilirubin, UA Positive (A) Negative [facility] Blood, UA Negative Negative [facility] Nitrite, UA Negative Negative [facility] Leukocytes, UA Trace (A) Negative [facility] Urobilinogen, UA 0.2 0.2 - 1.0 mg/dL [facility] RBC, UA 1 /HPF [facility] WBC, UA 5 /HPF [facility] Bacteria, UA Rare [facility] Mucus Rare [facility] Squam Epithel, UA <1 /HPF [facility] Specimen Source [facility] Specimen Urine - Urine, Clean Catch Performing Organization Address City/[facility]/Zipcode Phone Number [address] [address] [place] Urine culture (08/26/2018 3:18 PM [facility]) Result No growth [facility] Specimen Urine - Urine, Clean Catch Performing Organization Address City/[facility]/Zipcode Phone Number [address] [address] [place] Lactic acid, venous, whole blood Daily (08/26/2018 5:04 AM [facility])Only the most recent of3 resultswithin the time period is included. Lactate, Venous 1.0Comment: Specimen 0.5 - 2.2 mmol/L [facility] slightly hemolyzed [facility] Specimen Blood - Arm, Left Narrative Performed At Specimen slightly icteric [facility] Performing Organization Address City/State/Zipcode Phone Number [facility] [address] [place] [address] CENTER CRITICAL CARE (08/25/2018 8:05 PM [facility]) Narrative Performed At Ricci Ball MD 08/25/20188:10 PM Critical Care Performed by: Ricci Ball MD Authorized by: Kellie Puga MD Total critical care time: 38 minutes Critical care time was exclusive of separately billable procedures and treating other patients. Critical care was necessary to treat or prevent imminent or life-threatening deterioration of the following conditions: sepsis and circulatory failure. Critical care was time spent personally by me on the following activities: blood draw for specimens, discussions with consultants, evaluation of patient's response to treatment, examination of patient, obtaining history from patient or surrogate, ordering and performing treatments and interventions, ordering and review of laboratory studies, ordering and review of radiographic studies, pulse oximetry, re-evaluation of patient's condition and review of old charts. Comments: I provided medically necessary Critical Care on an emergent basis in order to prevent any sudden, clinically significant deterioration in his condition. Critical care time:38min It is my opinion that his clinical presentation, without appropriate emergent intervention has the potential to acutely impair one or more of his vital organ systems with a high probability of imminent deterioration in his condition. The time involved in the performance of separately reportable procedures or teaching time was not counted towards the critical care time that is documented here. Troponin I (08/25/2018 11:21 AM [facility]) Troponin I 0.03 0.00 - 0.03 ng/mL [facility] Specimen Blood - Arm, Right Narrative Performed At Troponin I (TnI) levels must be interpreted [facility] in the context of the presenting symptoms and the clinical findings. Elevated TnI levels indicate myocardial damage, but are not specific for ischemic heart disease. Elevated TnI levels are seen in patients with other cardiac conditions (including myocarditis and congestive heart failure), and slight TnI elevations occur in patients with other conditions, including sepsis, renal failure, acidosis, acute neurological disease, and persistent tachyarrhythmia. Performing Organization Address City/State/Zipcode Phone Number [facility] [address] [place] [address] [place] Creatine Kinase (CK) (08/25/2018 11:21 AM [facility]) Total CK 13 (L) 29 - 200 U/L [facility] Specimen Blood - Arm, Right Performing Organization Address [facility]/Zipcode Phone Number [facility] [address] [place] [address] [phone] [place] US abdomen complete (08/25/2018 8:50 AM [facility]) Narrative Performed At FINAL REPORT Consignd Abdominal ultrasound Clinical History:Hematuria Comparison: CT from 08/13/2018 Findings: Sonographic evaluation of the the abdomen is performed. The pancreas is not well visualized secondary to adjacent bowel gas. The liver is normal in size but measures 22.8 cm in length which is likely secondary to a prominent/elongated right right hepatic lobe, a normal variant. No focal hepatic lesions are identified. The main portal vein is patent with a diameter of 1.2 cm, within normal limits. There is mild gallbladder wall thickening. There is no evidence for cholelithiasis or cholecystic fluid. There is mild intrahepatic biliary ductal dilatation and pneumobilia present, as noted on the recent prior CT examination. There is a partially visualized biliary stent in place. Sonographic Hickey sign is negative. The spleen appears enlarged measuring 15.4 cm in length but otherwise demonstrates an unremarkable sonographic appearance. The right kidney is normal in size measuring 11.0 x 6.0 x 7.2 cm with normal cortical thickness and echogenicity. There is a 1.9 cm cyst identified arising off the upper pole of the right kidney. There is a large cyst identified arising off the left kidney measuring at least 18 cm. The left kidney is otherwise normal in size with normal cortical thickness and echogenicity. Additional smaller cysts are identified arising off the left kidney. There is no evidence for solid renal mass, hydronephrosis, or shadowing calculi. The IVC is unremarkable. The visual portion the aorta is normal in caliber. There is no ascites or pleural fluid visualized. IMPRESSION: 1. Mild intrahepatic biliary ductal dilatation and pneumobilia, as noted on the recent prior CT examination. 2. Nonspecific mild gallbladder wall thickening. No other sonographic evidence for acute cholecystitis. 3. Bilateral renal cysts. 4. Splenomegaly. Signed: Abisai Cortes MD Report Verified Date/Time:08/25/2018 21:35:53 Reading Location: [facility] [id number] Consult Reading Room Procedure Note Interface, External Ris In - 08/25/2018 9:38 PM [facility] FINAL REPORT Abdominal ultrasound Clinical History: Hematuria Comparison: CT from 08/13/2018 Findings: Sonographic evaluation of the the abdomen is performed. The pancreas is not well visualized secondary to adjacent bowel gas. The liver is normal in size but measures 22.8 cm in length which is likely secondary to a prominent/elongated right right hepatic lobe, a normal variant. No focal hepatic lesions are identified. The main portal vein is patent with a diameter of 1.2 cm, within normal limits. There is mild gallbladder wall thickening. There is no evidence for cholelithiasis or cholecystic fluid. There is mild intrahepatic biliary ductal dilatation and pneumobilia present, as noted on the recent prior CT examination. There is a partially visualized biliary stent in place. Sonographic Hickey sign is negative. The spleen appears enlarged measuring 15.4 cm in length but otherwise demonstrates an unremarkable sonographic appearance. The right kidney is normal in size measuring 11.0 x 6.0 x 7.2 cm with normal cortical thickness and echogenicity. There is a 1.9 cm cyst identified arising off the upper pole of the right kidney. There is a large cyst identified arising off the left kidney measuring at least 18 cm. The left kidney is otherwise normal in size with normal cortical thickness and echogenicity. Additional smaller cysts are identified arising off the left kidney. There is no evidence for solid renal mass, hydronephrosis, or shadowing calculi. The IVC is unremarkable. The visual portion the aorta is normal in caliber. There is no ascites or pleural fluid visualized. IMPRESSION: 1. Mild intrahepatic biliary ductal dilatation and pneumobilia, as noted on the recent prior CT examination. 2. Nonspecific mild gallbladder wall thickening. No other sonographic evidence for acute cholecystitis. 3. Bilateral renal cysts. 4. Splenomegaly. Signed: Abisai Cortes MD Report Verified Date/Time: 08/25/2018 21:35:53 Reading Location: [facility] B1 [id number] Consult Reading Room Performing Organization Address City/[facility]/Zipcode Phone Number [facility] Urinalysis w/Microscopic (08/24/2018 8:54 PM [facility]) Color, UA Dark Yellow [facility] Clarity, UA Hazy [facility] Specific Saffell, UA 1.011 1.001 - 1.035 [facility] pH, UA 6.0 5.0 - 8.0 [facility] Protein, UA 50 mg/dL (A) Negative [facility] Glucose, UA Negative Negative [facility] Ketones, UA Negative Negative [facility] Bilirubin, UA Positive (A) Negative [facility] Blood, UA Small (A) Negative [facility] Nitrite, UA Positive (A) Negative [facility] Leukocytes, UA Large (A) Negative [facility] Urobilinogen, UA 0.2 0.2 - 1.0 mg/dL [facility] RBC, UA 1 /HPF [facility] WBC, UA 178 /HPF [facility] Bacteria, UA Many [facility] Mucus Rare [facility] Squam Epithel, UA 1 /HPF [facility] Specimen Source Urine, Clean Catch [facility] Specimen Urine - Urine, Clean Catch Performing Organization Address City/[facility]/Zipcode Phone Number [address] [address] CENTER Procalcitonin (08/24/2018 7:51 PM [facility]) Procalcitonin 1.26 (H) <0.05 ng/mL [facility] Specimen Blood Narrative Performed At SEPSIS RISK (ng/mL) [facility] Low:0.05-0.50 Intermediate: 0.51-2.00 High: >=2.01 Performing Organization Address [facility] Phone Number [address] [address] CENTER Lipase (08/24/2018 7:51 PM [facility]) Lipase 97 (H) 8 - 78 U/L [facility] Specimen Blood Narrative Performed At Specimen moderately icteric [facility] Performing Organization Address [facility] Phone Number [address] [address] [phone] [place] Ammonia (08/24/2018 7:51 PM [facility]) Ammonia 33 18 - 72 mol/L [facility] Specimen Blood Performing Organization Address [facility] Phone Number [address] [address] [place] Blood Culture Panel(BioFire) (08/24/2018 7:29 PM [facility]) LISTERIA MONOCYTOGENES Not detected Not detected [facility] STAPHYLOCOCCUS Not detected Not detected [facility] STAPHYLOCOCCUS AUREUS Not detected Not detected [facility] Streptococcus Not detected Not detected [facility] STREPTOCOCCUS AGALACTIAE Not detected Not detected [facility] ([facility]) [facility] STREPTOCOCCUS PNEUMONIAE Not detected Not detected [facility] Streptococcus pyogenes (Group Not detected Not detected [facility] A) [facility] ACINETOBACTER BAUMANNII Not detected Not detected [facility] HAEMOPHILUS INFLUENZAE Not detected Not detected [facility] NEISSERIA MENINGITIDIS Not detected Not detected [facility] ENTEROBACTERIACEAE Detected (A) Not detected [facility] ENTEROBACTER CLOACOE COMPLEX Not detected Not detected [facility] KLEBSIELLA OXYTOCA Not detected Not detected [facility] KLEBSIELLA PNEUMONIAE Not detected Not detected [facility] PROTEUS Not detected Not detected [facility] SERRATIA MARCESCENS Not detected Not detected [facility] DAGO ALBICANS Not detected Not detected [facility] DAGO GLABRATA Not detected Not detected [facility] DAGO CLAIRE Not detected Not detected [facility] DAGO PARAPSILOSIS Not detected Not detected [facility] DAGO TROPICALIS Not detected Not detected [facility] ESCHERICHIA COLI Detected (A) Not detected [facility] Comment: [facility] First line therapy: Meropenem. De-escalate based on susceptibilities.This test does not evaluate for ESBL Reference Range: Not Detected METHICILLIN-RESISTANCE GENE Not detected [facility] VANCOMYCIN-RESISTANCE GENE Not detected [facility] CARBAPENEM-RESISTANCE GENE Not detected Not detected [facility] ENTEROCOCCUS Not detected Not detected [facility] PSEUDOMONAS AERUGINOSA Not detected Not detected [facility] Specimen Blood - Arm, Left Narrative Performed At Other bacteria and resistance markers not [facility] targeted by this PCR panel cannot be excluded; therefore clinical correlation and follow up of serology, culture results, and other molecular studies is required. The results are not intended to be used as the sole means for clinical diagnosis or patient management decisions. This sample was tested at the [facility] using the ProTip Blood Culture ID Panel. It is FDA cleared and has been verified and approved by the [facility] for clinical use. This laboratory is CLIA-certified and [employer] ([employer])-accredited to perform high complexity testing. Performing Organization Address City/State/Zipcode Phone Number [facility] [address] [address] CENTER ECG 12 lead (08/24/2018 6:46 PM [facility])Only the most recent of4 resultswithin the time period is included. Narrative Performed At Ventricular Rate 105 BPM GE MUSE Atrial Rate 105 BPM P-R Interval 158 ms QRS Duration 84 ms Q-T Interval 362 ms QTC Calculation(Bazett) 478 ms P [place] 20 degrees R [place] 93 degrees T [place] 30 degrees Sinus tachycardia with frequent Premature ventricular complexes in a pattern of bigeminy Rightward axis Possible Anterior infarct (cited on or before 23-JAN-1993) Abnormal ECG When compared with ECG of 12-AUG-2018 08:10, PVCs are now present Confirmed by Ramirez HUERTAS MICHAEL ([id number]) on 08/25/2018 6:49:33 AM Procedure Note Interface, External Ris In - 08/25/2018 6:49 AM [facility] Ventricular Rate 105 BPM Atrial Rate 105 BPM P-R Interval 158 ms QRS Duration 84 ms Q-T Interval 362 ms QTC Calculation(Bazett) 478 ms P [place] 20 degrees R [place] 93 degrees T [place] 30 degrees Sinus tachycardia with frequent Premature ventricular complexes in a pattern of bigeminy Rightward axis Possible Anterior infarct (cited on or before 23-JAN-1993) Abnormal ECG When compared with ECG of 12-AUG-2018 08:10, PVCs are now present Confirmed by Ramirez HUERTAS MICHAEL ([id number]) on 08/25/2018 6:49:33 AM Performing Organization Address City/State/Zipcode Phone Number [facility] [place] CARDIAC CATH REPORT - SCAN (08/20/2018 1:31 PM [place] [facility]) Narrative Performed At REPORT OF PROCEDURE - ENDOSCOPY URL (08/17/2018 4:59 PM [place]) Narrative Performed At [place] ERCP (08/17/2018 4:47 PM [place])Only the most recent of2 resultswithin the time period is included. Narrative Performed At FINAL REPORT Consignd ERCP 9 views 08/17/2018 5:08 PM CLINICAL HISTORY: Instrument localization COMPARISON: None available IMPRESSION: Please correlate imaging report findings with the procedure note prepared by Dr. Silver, as an intra-procedure imaging consultation was not requested. Reported fluoroscopy time: 0.7 minutes. Signed: Shay Mc MD Report Verified Date/Time:08/17/2018 17:10:56 Reading Location: [facility] Reading Room Procedure Note Interface, External Ris In - 08/17/2018 5:13 PM [place] FINAL REPORT ERCP 9 views 08/17/2018 5:08 PM CLINICAL HISTORY: Instrument localization COMPARISON: None available IMPRESSION: Please correlate imaging report findings with the procedure note prepared by Dr. Silver, as an intra-procedure imaging consultation was not requested. Reported fluoroscopy time: 0.7 minutes. Signed: Shay Mc MD Report Verified Date/Time: 08/17/2018 17:10:56 Reading Location: [facility] Reading Room Performing Organization Address City/State/Zipcode Phone Number [facility] CBC (Hemogram only) (08/13/2018 5:28 AM [place])Only the most recent of3 resultswithin the time period is included. WBC 10.9 (H) 3.5 - 10.5 K/L [facility] RBC 4.90 4.63 - 6.08 M/L [facility] Hemoglobin 13.3 (L) 13.7 - 17.5 GM/DL [facility] Hematocrit 38.7 (L) 40.1 - 51.0 % [facility] MCV 79.0 79.0 - 92.2 fL [facility] MCH 27.1 25.7 - 32.2 pg [facility] MCHC 34.4 32.3 - 36.5 GM/DL [facility] RDW 20.0 (H) 11.6 - 14.4 % [facility] Platelets 196 150 - 450 K/CU MM [facility] MPV 12.3 9.4 - 12.4 fL [facility] nRBC 0 0 - 0 /100 WBC [facility] Specimen Blood - Arm, Left Performing Organization Address City/State/Zipcode Phone Number [facility] [address] [place] [address] chest with IV contrast (08/13/2018 4:22 AM [place]) Narrative Performed At FINAL REPORT Consignd TECHNIQUE: CT of the chest, abdomen, and pelvis WITH intravenous contrast and WITHOUT oral contrast. Dose modulation, iterative reconstruction, and/or weight-based adjustment of the mA/kV was utilized to reduce the radiation dose to as low as reasonably achievable. INDICATION: pancreatic cancer staging. COMPARISON: Cardiac PET from 08/11/2018. FINDINGS: LINES/TUBES: Left chest ICD with a lead in the right ventricle. LUNGS AND AIRWAYS: Moderate centrilobular emphysema. A nodule in the right lower lobe measures 2.2 cm on axial image 38. Of note, this was markedly FDG avid on the cardiac PET. A groundglass opacity in the anterior right upper lobe on axial image 30 measures 0.8 cm. A left lower lobe ground glass opacity measures 0.6 cm on axial image 32. PLEURA: The pleural spaces are clear. HEART AND MEDIASTINUM: The visualized thyroid gland is normal. No significant mediastinal, hilar, or axillary lymphadenopathy. The heart and pericardium are within normal limits. Prior CABG. HEPATOBILIARY: No focal hepatic lesions. The gallbladder is distended. Mild intrahepatic biliary ductal dilation. Mild pneumobilia due to the recent ERCP and stent placement. A plastic common bile duct stent is in place. SPLEEN: No splenomegaly. PANCREAS: A cystic lesion off the pancreatic uncinate process measures 3.8 cm on axial image 81. The known pancreatic head mass is difficult to visualize but likely measures 3.3 cm on axial image 72. This likely abuts the superior mesenteric artery and main portal vein. ADRENALS: A left adrenal nodule measures 0.7 cm on axial image 70. KIDNEYS/URETERS: A left upper pole hyperdense renal lesion measures 2.2 cm on axial image 67. Simple cyst in the left kidney measure 19.9 cm, 4.47 m, 3.2 cm, and 2.6 cm. Simple cyst in the right kidney measures 2.4 cm, 1.2 cm, 1.5 cm, and 1.4 cm. Additional bilateral renal hypodensities are too small to further characterize. PELVIC ORGANS/BLADDER: Unremarkable. PERITONEUM/RETROPERITONEUM: No free air or fluid. LYMPH NODES: A nonspecific, mildly enlarged left periaortic lymph node measures 1.1 cm on axial image 85. The largest peripancreatic lymph node measures 0.8 cm in short axis dimension on axial image 63. VESSELS: Unremarkable. GI TRACT: No distention or wall thickening. There is contrast in the colon and distal small bowel, possibly from prior study. Mild diverticulosis the sigmoid colon. The appendix is normal. BONES AND SOFT TISSUES: Bilateral gynecomastia. Prior median sternotomy. A sclerotic density in the left iliac bone is subcentimeter, has a narrow zone of transition, and appears nonaggressive. This is most likely a bone island. IMPRESSION: 1.The pancreatic head mass is not well-visualized on this single phase study. However, the likely mass in the uncinate process measures 3.3 cm. This likely abuts the superior mesenteric artery and main portal vein. A pancreas mass protocol is recommended if vascular involvement will acid changer. 2.A right lower lobe 2.2 cm pulmonary nodule is located fairly centrally and was markedly FDG avid on the prior cardiac PET. This is most likely either a metastasis or primary lung cancer. 3.A nonspecific, mildly enlarged left periaortic lymph node measures 1.1 cm in short axis dimension. 4.The cystic area off of the uncinate process is indeterminate. This could be related to pancreatitis or the known pancreatic mass. 5.A left upper pole 2.2 cm renal lesion is indeterminate and could be a solid renal mass. This can be further evaluated on the pancreas protocol CT as well. 6.Rounded groundglass opacities measure up to 0.8 cm and are indeterminate. These can be followed up on future staging studies. 7.An incidental left adrenal nodule measures 0.7 cm and is probably benign. No additional imaging is necessary. 8.Moderate centrilobular emphysema. Signed: Naeem Arguello MD Report Verified Date/Time:08/13/2018 07:37:46 Reading Location: [facility] Diagnostic Imaging Reading Room - [place] [address] Procedure Note Interface, External Ris In - 08/13/2018 7:39 AM [place] FINAL REPORT TECHNIQUE: CT of the chest, abdomen, and pelvis WITH intravenous contrast and WITHOUT oral contrast. Dose modulation, iterative reconstruction, and/or weight-based adjustment of the mA/kV was utilized to reduce the radiation dose to as low as reasonably achievable. INDICATION: pancreatic cancer staging. COMPARISON: Cardiac PET from 08/11/2018. FINDINGS: LINES/TUBES: Left chest ICD with a lead in the right ventricle. LUNGS AND AIRWAYS: Moderate centrilobular emphysema. A nodule in the right lower lobe measures 2.2 cm on axial image 38. Of note, this was markedly FDG avid on the cardiac PET. A groundglass opacity in the anterior right upper lobe on axial image 30 measures 0.8 cm. A left lower lobe ground glass opacity measures 0.6 cm on axial image 32. PLEURA: The pleural spaces are clear. HEART AND MEDIASTINUM: The visualized thyroid gland is normal. No significant mediastinal, hilar, or axillary lymphadenopathy. The heart and pericardium are within normal limits. Prior CABG. HEPATOBILIARY: No focal hepatic lesions. The gallbladder is distended. Mild intrahepatic biliary ductal dilation. Mild pneumobilia due to the recent ERCP and stent placement. A plastic common bile duct stent is in place. SPLEEN: No splenomegaly. PANCREAS: A cystic lesion off the pancreatic uncinate process measures 3.8 cm on axial image 81. The known pancreatic head mass is difficult to visualize but likely measures 3.3 cm on axial image 72. This likely abuts the superior mesenteric artery and main portal vein. ADRENALS: A left adrenal nodule measures 0.7 cm on axial image 70. KIDNEYS/URETERS: A left upper pole hyperdense renal lesion measures 2.2 cm on axial image 67. Simple cyst in the left kidney measure 19.9 cm, 4.47 m, 3.2 cm, and 2.6 cm. Simple cyst in the right kidney measures 2.4 cm, 1.2 cm, 1.5 cm, and 1.4 cm. Additional bilateral renal hypodensities are too small to further characterize. PELVIC ORGANS/BLADDER: Unremarkable. PERITONEUM/RETROPERITONEUM: No free air or fluid. LYMPH NODES: A nonspecific, mildly enlarged left periaortic lymph node measures 1.1 cm on axial image 85. The largest peripancreatic lymph node measures 0.8 cm in short axis dimension on axial image 63. VESSELS: Unremarkable. GI TRACT: No distention or wall thickening. There is contrast in the colon and distal small bowel, possibly from prior study. Mild diverticulosis the sigmoid colon. The appendix is normal. BONES AND SOFT TISSUES: Bilateral gynecomastia. Prior median sternotomy. A sclerotic density in the left iliac bone is subcentimeter, has a narrow zone of transition, and appears nonaggressive. This is most likely a bone island. IMPRESSION: 1.The pancreatic head mass is not well-visualized on this single phase study. However, the likely mass in the uncinate process measures 3.3 cm. This likely abuts the superior mesenteric artery and main portal vein. A pancreas mass protocol is recommended if vascular involvement will acid changer. 2.A right lower lobe 2.2 cm pulmonary nodule is located fairly centrally and was markedly FDG avid on the prior cardiac PET. This is most likely either a metastasis or primary lung cancer. 3.A nonspecific, mildly enlarged left periaortic lymph node measures 1.1 cm in short axis dimension. 4.The cystic area off of the uncinate process is indeterminate. This could be related to pancreatitis or the known pancreatic mass. 5.A left upper pole 2.2 cm renal lesion is indeterminate and could be a solid renal mass. This can be further evaluated on the pancreas protocol CT as well. 6.Rounded groundglass opacities measure up to 0.8 cm and are indeterminate. These can be followed up on future staging studies. 7.An incidental left adrenal nodule measures 0.7 cm and is probably benign. No additional imaging is necessary. 8.Moderate centrilobular emphysema. Signed: Naeem Arguello MD Report Verified Date/Time: 08/13/2018 07:37:46 Reading Location: [facility] Diagnostic Imaging Reading Room - [place] [address] Performing Organization Address City/State/Zipcode Phone Number [facility] REPORT OF PROCEDURE - ENDOSCOPY URL (08/12/2018 7:02 PM [place]) Narrative Performed At REPORT OF PROCEDURE - ENDOSCOPY URL (08/12/2018 6:50 PM [place]) Narrative Performed At CYTOLOGY REQUEST (08/12/2018 6:02 PM [place]) Cytology See Separate Report [facility] Specimen Brushings - Common Bile Duct Performing Organization Address City/State/Zipcode Phone Number [facility] [address] [place] [address] [phone] CENTER Cytology (08/12/2018 6:02 PM [place]) Case Report Medical Cytology Report Case: [id number] [facility] Authorizing Provider:Christian Silverected: 08/12/2018 1802 [facility] Ordering Location: [address] Received: 08/13/2018 09 Service Pathologist: Sydney Bowens MD Specimen:Common Bile Duct DIAGNOSIS COMMON BILE DUCT BRUSHING (CYTOSPINS): [facility] - RARE GROUPS OF ATYPICAL CELLS, SUSPICIOUS FOR MALIGNANCY (SEE COMMENT) [facility] Signing Pathologist Direct Phone Line: [phone] COMMENT Cytospins show a few groups of rare atypical cells, with cytological features suspicious for malignancy. The paucity of the rare atypical cells preclude a more definitive diagnosis. [facility] Please see cases [id number] and [id number] for further evaluation. CPT Code(s) 41491 [facility] CLINICAL DATA Pancreas mass, jaundice, [facility] biliary obstruction [facility] SPECIMEN SOURCE COMMON BILE DUCT BRUSHING [facility] GROSS DESCRIPTION 1 brush tip in 25 mls cytorich red; 2 cytospins [facility] Collected: [id number] [facility] Received: [id number] STATEMENT OF ADEQUACY Satisfactory [facility] Gross assessment was [facility] performed at [place], Department of [facility] Pathology, [address] [place] [address], Technical component was [facility] performed at [place], Department of [facility] Pathology, [address] [place] [address], Professional component was [facility] performed at [place], Department of [facility] Pathology, [address] [place] [address], [place] [address], Specimen Brushings - Common Bile Duct Narrative Performed At Performing Organization Address City/State/Zipcode Phone Number [facility] [address] [place] [phone] [place] FINE NEEDLE ASPIRATE (FNA) REQUEST (08/12/2018 5:11 PM [place]) Cytology See Separate Report [facility] Specimen Fine Needle Aspirate - Pancreas Performing Organization Address City/State/Zipcode Phone Number [facility] [address] [place] [phone] [place] Fine Needle Aspirate by Clinician (08/12/2018 5:11 PM [place]) Case Report Medical Cytology Report Case: [id number] [facility] Authorizing Provider:Christian Silverected: 08/12/2018 1711 [facility] Ordering Location: [address] Received: 08/13/2018 0922 Service Pathologist: Sydney Bowens MD Specimen:Pancreas, Pancreas head mass for routine cyto in CR[facility] DIAGNOSIS PANCREAS HEAD MASS FNA BY CLINICIAN (CYTOSPINS AND CELL BLOCK OF ASPIRATE): [facility] - [place] [facility] Signing Pathologist Direct Phone Line: [phone] COMMENT Please see cases [id number] [facility] and [id number] [facility] CPT Code(s) 40865, 09038 [facility] CLINICAL DATA (3.4 X 3.3 cm) Irregular [facility] mass in the pancreatic head [facility] SPECIMEN SOURCE PANCREAS HEAD MASS FNA [facility] GROSS DESCRIPTION 15 mls in cytorich red; 4 cytospins, cell block [facility] Collected: [id number] [facility] Received: [id number] Gross assessment was [facility] performed at [place], Department of [facility] Pathology, [address] [place] [address], Technical component was [facility] performed at [place], Department of [facility] Pathology, [address] [place] [address], Professional component was [facility] performed at [place], Department of [facility] Pathology, [address] [place] [address], Specimen Fine Needle Aspirate - Pancreas Narrative Performed At Performing Organization Address City/[facility] Phone Number [address] [address] [phone] [place] Sodium, random urine (08/11/2018 7:32 PM [place]) Sodium Urine 38 meq/L [facility] Specimen Urine - Urine, Voided Narrative Performed At Reference Range: No Normals [facility] Performing Organization Address City/[facility]/Zipcode Phone Number [address] [address] [place] Osmolality, urine (08/11/2018 7:32 PM [place]) Osmolality, Ur 468 40-1,400 mOsm/kg [facility] Specimen Urine - Urine, Voided Performing Organization Address [facility] Phone Number [address] [address] [place] myocardial perfusion PET (rest and stress) (08/11/2018 11:10 AM [place]) Narrative Performed At FINAL REPORT Consignd PROCEDURE:Rest/Stress MYOCARDIAL PERFUSION PET with regadenoson\\XA9\\ CPT CODE:46530 INDICATION:Defined extent/severity of known CAD HISTORY:Cardiac risk factors: Obstructive sleep apnea. Other cardiovascular history: No CAD with prior ACB, congestive heart failure, status post ICD. Recent cardiac symptoms: None. PROTOCOL:Limited low-dose CT imaging was performed for attenuation correction. 40.0 mCi of Rb-82 chloride was injected iv at rest, and gated PET (positron emission tomography) images were obtained. Subsequently, 40.0 mCi of Rb-82 chloride was injected iv at expected peak pharmacologic effect, and gated PET images were obtained. PRELIMINARY STRESS TEST DATA FROM NONINVASIVE CARDIOLOGY: Pharmacologic stress was by 10-second iv infusion of 0.4 mg of regadenoson. Radiotracer was injected 30 seconds after start of stress. Heart rate was 75 beats/min at rest and 85 beats/min (54% of MPHR) at tracer injection. BP was 80/53 mmHg at rest and 78/50 mmHg at tracer injection. Stress was stopped for predetermined endpoint. The patient experienced shortness of breath; treatment was not required. Preliminary ECG evaluation revealed sinus rhythm at rest and no ischemic changes with stress. (Final ECG interpretation and other stress and monitoring data are reported separately by Cardiology.) IMAGING FINDINGS:Study quality is good. Images obtained after stress injection show severely reduced radiotracer uptake in the mid anterior, anteroapical, and apical segments of the LV. Resting images show similar radiotracer uptake. LV volume appears increased. RV volume appears normal. Gated images obtained immediately after stress show akinetic mid anterior, anteroapical, and apical LV wall motion with normal wall motion of the other segments. Gated images obtained at rest show similar LV wall motion. LVEF at rest is 49%. LVEF at stress is 49%. IMPRESSION: 1. Abnormal study.2. Appropriate pharmacologic stress.3. Abnormal myocardial perfusion.There is a marked severity, large size, fixed, perfusion defect in the mid anterior, anteroapical, and apical segments of the LV LV.4. Mildly decreased resting LV function. No deterioration of function is noted with pharmacologic stress.5. Extracardiac tracer distribution is normal. 6. Compared to previous [facility] SPECT study on 03/30/2001, the anterior and anteroapical perfusion defect is unchanged. NONINVASIVE RISK STRATIFICATION: The above findings are considered high risk (>3% annual or DE) based on the following criteria: - Resting perfusion abnormalities >10% of the myocardium in patients without prior history or evidence of DE ([facility]. 2017;69(17):2212-25.) Signed: Balaji Haert MD Report Verified Date/Time:08/11/2018 13:51:01 Reading Location: [address] [facility] Reading Room Procedure Note Interface, External Ris In - 08/11/2018 1:53 PM [place] [facility] FINAL REPORT PROCEDURE: Rest/Stress MYOCARDIAL PERFUSION PET with regadenoson\\XA9\\ CPT CODE: 76364 INDICATION: Defined extent/severity of known CAD HISTORY: Cardiac risk factors: Obstructive sleep apnea. Other cardiovascular history: No CAD with prior ACB, congestive heart failure, status post ICD. Recent cardiac symptoms: None. PROTOCOL: Limited low-dose CT imaging was performed for attenuation correction. 40.0 mCi of Rb-82 chloride was injected iv at rest, and gated PET (positron emission tomography) images were obtained. Subsequently, 40.0 mCi of Rb-82 chloride was injected iv at expected peak pharmacologic effect, and gated PET images were obtained. PRELIMINARY STRESS TEST DATA FROM NONINVASIVE CARDIOLOGY: Pharmacologic stress was by 10-second iv infusion of 0.4 mg of regadenoson. Radiotracer was injected 30 seconds after start of stress. Heart rate was 75 beats/min at rest and 85 beats/min (54% of MPHR) at tracer injection. BP was 80/53 mmHg at rest and 78/50 mmHg at tracer injection. Stress was stopped for predetermined endpoint. The patient experienced shortness of breath; treatment was not required. Preliminary ECG evaluation revealed sinus rhythm at rest and no ischemic changes with stress. (Final ECG interpretation and other stress and monitoring data are reported separately by Cardiology.) IMAGING FINDINGS: Study quality is good. Images obtained after stress injection show severely reduced radiotracer uptake in the mid anterior, anteroapical, and apical segments of the LV. Resting images show similar radiotracer uptake. LV volume appears increased. RV volume appears normal. Gated images obtained immediately after stress show akinetic mid anterior, anteroapical, and apical LV wall motion with normal wall motion of the other segments. Gated images obtained at rest show similar LV wall motion. LVEF at rest is 49%. LVEF at stress is 49%. IMPRESSION: 1. Abnormal study. 2. Appropriate pharmacologic stress. 3. Abnormal myocardial perfusion. There is a marked severity, large size, fixed, perfusion defect in the mid anterior, anteroapical, and apical segments of the LV LV. 4. Mildly decreased resting LV function. No deterioration of function is noted with pharmacologic stress. 5. Extracardiac tracer distribution is normal. 6. Compared to previous [facility] SPECT study on 03/30/2001, the anterior and anteroapical perfusion defect is unchanged. NONINVASIVE RISK STRATIFICATION: The above findings are considered high risk (>3% annual or DE) based on the following criteria: - Resting perfusion abnormalities >10% of the myocardium in patients without prior history or evidence of DE ([facility]. 2017;69(55):1332-93.) Signed: Balaji Heart MD Report Verified Date/Time: 08/11/2018 13:51:01 Reading Location: [address] Reading Room Performing Organization Address City/State/Zipcode Phone Number [facility] Treadmill tolerance(Non-Nuclear Treadmill) (08/11/2018 11:07 AM [place]) Narrative Performed At Protocol Name [facility] Time In Exercise Phase 00:01:00 Max. Systolic BP 78 mmHg Max Diastolic BP 50 mmHg Max Heart Rate 85 BPM Max Predicted Heart Rate 155 BPM Reason For Termination Predetermined end point Reason for Test Pre Op Cardiac Clearance Target HR Formula (220 - Age)*100% Arrhythmias atrial premature beats ventricular premature beats Resting ECG Normal sinus rhythm 1st Degree AV Block Premature Atrial Contraction ST Changes No Significant Changes Overall Impression Indeterminate due to pharmacological stress Chest Pain none HR Response To Exercise BP Response To Exercise ASA Brilinta metoprolol Confirmed by fellow James Mejía ([id number]) on 08/11/2018 11:46:27 AM Confirmed by MD ZABALA JORGE [id number]) on 08/25/2018 12:35:18 PM Procedure Note Interface, External Ris In - 08/25/2018 12:35 PM [place] [facility] Protocol Name Regadenoson Time In Exercise Phase 00:01:00 Max. Systolic BP 78 mmHg Max Diastolic BP 50 mmHg Max Heart Rate 85 BPM Max Predicted Heart Rate 155 BPM Reason For Termination Predetermined end point Reason for Test Pre Op Cardiac Clearance Target HR Formula (220 - Age)*100% Arrhythmias atrial premature beats ventricular premature beats Resting ECG Normal sinus rhythm 1st Degree AV Block Premature Atrial Contraction ST Changes No Significant Changes Overall Impression Indeterminate due to pharmacological stress Chest Pain none HR Response To Exercise BP Response To Exercise ASA Brilinta metoprolol Confirmed by fellow James Mejía ([id number]) on 08/11/2018 11:46:27 AM Confirmed by MD ZABALA JORGE ([id number]) on 08/25/2018 12:35:18 PM Performing Organization Address City/State/Zipcode Phone Number [facility] B-type Natriuretic Factor (BNP) (08/11/2018 4:05 AM [place]) BNP 42 0 - 100 pg/mL [facility] Specimen Blood - Arm, Left Performing Organization Address City/State/Zipcode Phone Number [facility] [address] [place] [address] [phone] CENTER after 10/20/2017 Insurance Payer Benefit Plan / Group Subscriber ID Type Phone Address MEDICARE MEDICARE A B xxxxxxxxxxx Medicare MCR GENERIC MEDICARE xxxxxxxxxx Medigap SUPPLEMENT/INDIVIDUAL SUPPLEMENT Advance Directives For more information, please contact:[address] [phone] Code Status Date Activated Date Inactivated Comments Full Code 08/24/2018 7:04 PM 08/31/2018 1:40 PM This code status was determined by: Patient Full Code 08/10/2018 2:54 PM 08/17/2018 2:32 PM This code status was determined by: Patient Full Code 08/02/2018 5:56 AM 08/10/2018 11:55 AM This code status was determined by: Patient
--- OUTSIDE RECORDS SUMMARY | 2018-10-21 18:12 | XMS REPORT ---
:1950 [facility] Address [address] [place] [address] [address]. [address] [place] [address] Care Team Providers Name Role Phone MINDA CHRISTENSEN Unavailable Unavailable REID BROWN Unavailable Unavailable CHRISTIAN SILVER Unavailable Unavailable MANNY PUENTE Unavailable Unavailable Problems This patient has no known problems. Allergies, Adverse Reactions, Alerts This patient has no known allergies or adverse reactions. Medications This patient has no known medications. Results Test Description Test Time Test Comments Text Results Atomic Results Result Comments FUNGUS CULTURE + SMEAR 2018-10-18 20:43:00 Test Item Value Reference Range Comments CULTURE (BEAKER) (test lrhh=5243) No fungus isolated in 28 days FUNGUS SMEAR (BEAKER) (test trtm=5579) No fungi seen TISSUE [id number] 11:00:00Surgical Pathology Report Case: [id number] Authorizing Provider: Christian Silver Collected: 08/12/2018 1644 Ordering Location: [address] Received: 08/13/2018 0807 Service Pathologist: Branden Eric MD Specimens: A) - Duodenal, DUODENAL BX - DUODENAL ULCERS B) -Biopsy, Gastric , GASTRIC BX - GASTIC NODULE C ) - Pancreas, Head, PANCREAS HEAD MASS Special stains for fungal organisms (GMS, PAS) performed on the duodenal biopsy (block A1) are NEGATIVE.Immunostain for CMV performed is NEGATIVE.Addendum electronically signed by Branden Eirc MD on 2018 at 3:08 PMPART A DUODENAL BIOPSY:MARKEDLY INFLAMED SMALL INTESTINAL MUCOSA WITH ULCERATED.NEGATIVE FOR DYSPLASIA OR INVASIVE CARCINOMA.STUDIES FOR INFECTIOUS ORGANISMS PENDING, AN ADDENDUM REPORT WILL FOLLOW.PART B GASTRIC BIOPSY FOR SUSPECTED NODULE:ACTIVE CHRONIC GASTRITIS WITH INTESTINAL METAPLASIA.NEGATIVE FOR DYSPLASIA OR INVASIVE CARCINOMA.MICAH STARRY STAIN FOR HELICOBACTER IS NEGATIVE.PART C PANCREATIC HEAD BIOPSY FOR SUSPECTED MASS: RARE ATYPICAL EPITHELIAL CELLS SUSPICIOUS BUT NOT DIAGNOSTIC FOR CARCINOMA.SEE DIAGNOSTIC COMMENT. Signing Pathologist Direct Phone Line: [phone] electronically signed by Branden Eric MD on 10/01/2018 at 11:00 AM PART C: Histological sections demonstrate portions of predominantly benign pancreatic tissue. Rare highly atypical cells are present which are suspicious but not diagnostic for carcinoma. The concurrent cytology case ([id number]) was reviewed and is diagnostic of carcinoma. Should ancillary studies be requested for prognostic markers, material from theconcurrent cytology case should be used. This case was amended on 10/01/2018 for the purposes of correcting a typographical error with regards to the concurrent cytology case. The corrected concurrent cytology case to be referred to is [id number]. The initial report had a typographical error in the numberof the concurrent cytology case. [id number], 84466a2, 50659, 40953Vgafoydg, biliary obstructionA. Duodenal biopsy; B. Gastric nodule biopsy; C. Pancreas head biopsyThe specimens are received in three containers of formalin all labeled with the patient's information. Part A labeled "duodenal ulcer biopsy"consists of two fragments of baron tissue soft tissue measuring 0.1 and 0.2 cm, submitted A1. Part B labeled "gastric nodule biopsy" consists of multiple fragments of baron tissue ranging from less than 0.1 to 0.3 cm, submitted entirely B1. Part C labeled "pancreas head mass" consists of multiple stringy fragments of hemorrhagic soft tissue measuring 1 x 0.4 x 0.2 cm in aggregate. Submitted entirely C1. CG/pl PERFORMED.The interpretation of this case included the use of immunohistochemistry or special stains.BLOCK A1- GMS, PAS, CMVBLOCK B1- WARTHIN STARRYImmunohistochemistry technical testing was performed at [facility], Pathology Laboratory where it was developed and its performance characteristics were determined. It has not been cleared or approved by the U.S. Food and Drug Administration. The FDA has determined that such clearance or approval is not necessary. The test is used for clinical purposes. It should not be regarded as investigational or for research. This laboratory is certified under the Clinical Laboratory Improvement Amendments of 1988 (CLIA-88 ) as qualified to perform high complexity clinical laboratory testing.TISSUE [id number] 18:45:00Surgical Pathology Report Case: [id number] Authorizing Provider: Minda Christensen MD Collected: 09/24/2018 0946 Ordering Location: [facility] Received: 09/24/2018 1356 SERVICES Pathologist: Sair Anderson MD Specimens: A) - Lung, Right Upper Lobe, EBBX, PROCESS IN CYTOLOGY FOR COLLODION BAG, REFLEX GENETIC MARKERS. B) - Lung , Right Lower Lobe, TBBX, PROCESS IN CYTOLOGY FOR COLLODION BAG, REFLEX GENETIC MARKERS. A. LUNG, RIGHT UPPER LOBE,ENDOBRONCHIAL BIOPSY: - ENDOBRONCHIAL LIPOMA - INFLAMED AND DENUDED AIRWAY EPITHELIUM - NEGATIVE FOR MALIGNANCYB. LUNG, RIGHT LOWER LOBE, TRANSBRONCHIAL BIOPSY: - NEUROENDOCRINE CARCINOMA, LOW GRADE (TYPICAL CARCINOID) Signing Pathologist Direct Phone Line: [phone] signed by Sari Anderson MD on 2018 at 6:45 PMB. Mitoses are not readily identified (<1/10 HPF). No necrosis is seen. Immunostains show the tumor to be positive for synaptophysin, while negativefor TTF-1, and Napsin-A. Ki-67 proliferative index is approximately 2%.42549 X [id number] A: The specimen is received in a formalin-filled container and labeled with the patient's information and labeled "Right upper lobe lung EBBX" and consists of one fragment of baron off white soft tissue and hemorrhagic soft tissue measuring 0.9 X 0.6 cm submitted entirely A2. One fragment solid, hard, floating opaque baron off white tissue measuring 0.4 x 0.2 cm, and three fragments of fatty tissue measuring 0.1 cm each, submitted entirely A2 . Specimen B: The specimen is ,received in a formalin-filled container and labeled with the patient's information and labeled "Right lower lobe lung TBBX" and consists of twenty fragments of baron off white soft tissue and hemorrhagic soft tissue measuring 0.2 cm each , submitted entirely B1.Performed.The interpretation of this case included the use of immunohistochemistry or special stains. Immunohistochemistry technical testing was performed at [facility], Pathology Laboratory where it was developed and its performance characteristics were determined. It has not been cleared or approved by the U.S. Food and Drug Administration. TheFDA has determined that such clearance or approval is not necessary. The test is used for clinical purposes. It should not be regarded as investigational or for research. This laboratory is certified under the Clinical Laboratory Improvement Amendments of 1988 (CLIA-88) as qualified to perform high complexity clinical laboratory testing.FINE NEEDLE ASPIRATE BY [id number] 16:58:00Medical Cytology Report Case: [id number] Authorizing Provider: Minda Christensen MD Collected: 09/24/2018 0949 Ordering Location: [facility] Received: 09/24/2018 1405 SERVICES Pathologist: Deann Preciado MD Specimen: Lymph Node, Interlobar, Left, Station 11L LYMPH NODE, INTERLOBAR, LEFT, STATION 11L EBUS FNA BY CLINICIAN (CYTOSPINS AND CELL BLOCK OF ASPIRATE): - LYMPHOID TISSUE AND HISTIOCYTES PRESENT - NO MALIGNANT CELLS IDENTIFIED Signing Pathologist Direct PhoneLine: [phone] signed by Deann Preciado MD on 09/29/2018 at 4:58 PMPlease see cases [id number] and [id number] through [id number], 89478Ffwybdfrzzz lymphadenopathy, lung nodule, malignant neoplasm of pancreasLYMPH NODE, INTERLOBAR, LEFT, STATION 11L EBUS FNA35 mls in cytorich red; 2 cytospins, cell blockCollected: [id number]: 565507Kzz interpretation of this case included the use of immunohistochemistry or special stains. Immunohistochemistry technical testing was performed at [facility], Pathology Laboratory where it was developed and its performance characteristics were determined. It has not been cleared or approved by the U.S. Food and Drug Administration. The FDA has determined that such clearance or approval is not necessary. The test is used for clinical purposes. It should not be regarded as investigational or for research. This laboratory is certified under the Clinical Laboratory Improvement Amendments of 1988 (CLIA-88) as qualified to perform highcomplexity clinical laboratory testing.[facility], Department of Pathology, [address] [place] [address], [facility], [facility] of[facility]ology, [address] [place] [address], Tel AKaiser [facility] of [facility], [address] [place] [address], AJUB NEEDLE ASPIRATE BY [id number] 16:47:00Medical Cytology Report Case: [id number] Authorizing Provider: Minda Christensen MD Collected: 09/24/2018 0950 Ordering Location: [facility] Received: 09/24/2018 1405 SERVICES Pathologist: Deann Preciado MD Specimen: Lymph Node, Subcarinal, Station 7 LYMPH NODE, SUBCARINAL, STATION 7 EBUS FNA BY CLINICIAN (CYTOSPINS AND CELL BLOCK OF ASPIRATE): - SCANT LYMPHOID TISSUE PRESENT - NO MALIGNANT CELLS IDENTIFIED Signing Pathologist Direct Phone Line: [phone] signed by Deann Preciado MD on at 4:47 PMPlease see cases [id number] and [id number] through [id number], 09169Wwygyqewbbq lymphadenopathy, lung nodule, malignant neoplasm of pancreasLYMPH NODE, SUBCARINAL, STATION 7 EBUS FNA45 mls in cytorich red; 2 cytospins, cell blockCollected: 507891Ykkxxtnm: 031126Kmvsimbfh.The interpretation of this case included the use of immunohistochemistry or special stains. Immunohistochemistry technical testing was performed at [facility], Pathology Laboratory where it was developed and its performance characteristics were determined. It has not been cleared or approved by the U.S. Food and Drug Administration. The FDA has determined that such clearance or approval is not necessary. The test is used for clinical purposes. It should not be regarded as investigational or for research. This laboratory is certified under the Clinical Laboratory Improvement Amendments of 1988 (CLIA-88) as qualified to perform high complexity clinical laboratory testing.[facility], Department of Pathology, [address] [place] [address], AruybkKaiser Perman[facility], Department of Pathology, [address] [place] [address], Tel FK[facility], Department of Pathology, [address] [place] [address], ADFO NEEDLE ASPIRATE BY [id number] 16:45:00Medical Cytology Report Case: [id number] Authorizing Provider: Minda Christensen MD Collected: 09/24/2018 0954 Ordering Location: [facility] Received: 09/24/2018 1405 SERVICES Pathologist: Deann Preciado MD Specimen: Lymph Node, Lower Paratracheal, Right, Station 4R LYMPH NODE, LOWERPARATRACHEAL, RIGHT, STATION 4R EBUS FNA BY CLINICIAN (CYTOSPINS AND CELL BLOCK OF ASPIRATE): - LYMPHOID TISSUE WITH HISTIOCYTES PRESENT - NO MALIGNANT CELLS IDENTIFIED Signing Pathologist Direct Phone Line: [phone] signed by eDann Preciado MD on 09/29/2018 at 4:45 PMPlease see cases [id number] and [id number] through [id number], 27895Eiarxdvykzk lymphadenopathy, lung nodule, malignant neoplasm of pancreasLYMPH NODE, LOWER PARATRACHEAL, RIGHT, STATION 4R EBUS FNA35 mls in cytorich red; 2 cytospins, cell blockCollected: 793019Qvzmxqdk: 243423Jwrercnkh.The interpretation of this case included the use of immunohistochemistry or special stains. Immunohistochemistry technical testing was performed at [facility], Pathology Laboratory where it was developed andits performance characteristics were determined. It has not been cleared or approved by the U.S. Food and Drug Administration. The FDA has determined that such clearance or approval is not necessary. The test is used for clinical purposes. It should not be regarded as investigational or for research. This laboratory is certified under the Clinical Laboratory Improvement Amendments of 1988 (CLIA-88) as qualified to perform high complexity clinical laboratory testing.[facility], Department of Pathology, [address] [place] [address], Tel RKaiser [facility]erman[facility], Department of Pathology, [address] [place] [address], HervaqKhSan [facility], Department of Pathology, [address] [place] [address], [place] [address], Tel FINE NEEDLE ASPIRATE BY [id number] 16:44:00Medical Cytology Report Case: [id number] Authorizing Provider: Minda Christensen MD Collected: 2018 1002 Ordering Location: [facility] Received : 09/24/2018 1405 SERVICES Pathologist: Deann Preciado MD Specimen: Lymph Node , Interlobar, Right, Station 11R LYMPH NODE, INTERLOBAR RIGHT, STATION 11R EBUS FNA BY CLINICIAN (CYTOSPINS AND CELL BLOCK OF ASPIRATE): - NEUROENDOCRINE TUMOR, LOW GRADE Signing Pathologist Direct Phone Line: [phone] signed by Deann Preciado MD on 09/29/2018 at 4:44 PM The Ki67 labeling index is <1%, mitoses are < 1?per mm2 and no necrosis is seen in the FNA sample. These are supportive of a low grade neuroendocrinetumor (typical carcinoid). However small sample size precludes accurate classification. Correlationwith the concurrent lung biopsy [id number] and other clinical studies is recommended. The diagnosis was conveyed to Minda Christensen MD on 09/29/18 at 4:42 pm by secure e- mail.INTRADEPARTMENTAL CONSULTATION: -Sydney Bowens MD has seen the case and agrees with the diagnosis.Please also see [id number] through [phone], 43043, 84561, 91850 x 5, 53289Woplrhngrqa lymphadenopathy, lung nodule, malignant neoplasm of pancreasLYMPH NODE, INTERLOBAR RIGHT, STATION 11R EBUS FNA35 mls in cytorich red; 2 cytospins, cell blockCollected: [id number]: 556636Sjo interpretation of this case included the use of immunohistochemistry or special stains on the cell block. TTF1-negativeNapsin I-dpmfuugpRkxdpqtoiuyo-felzqxrt, diffuseSynaptophysin-positive, kmptyqvVk66-<1%CAM5.2-positive, diffuseCDX-2- negativeControls are adequate.Immunohistochemistry technical testing was performed at [facility], Pathology Laboratory where it was developed and its performance characteristics were determined. It has not been cleared or approved by the U.S. Food and Drug Administration. The FDA has determined that such clearance or approval is not necessary. The test is used for clinical purposes. It should not be regarded as investigational or for research. This laboratory is certified under the Clinical Laboratory Improvement Amendments of 1988 (CLIA-88) as qualified to perform high complexity clinical laboratory testing.[facility], Department of Pathology, [address] [place] [address], Tel DKaiser [facility], Department of Pathology, [address] [place] [address], NnimsmKaiser Permanente Santa [facility], Department of Pathology, [address] [place] [address], Tel IRONCHIAL CULTURE + GRAM [id number] 12:11:00 Test Item Value Reference Range Comments CULTURE (BEAKER) (test 1+ Normal respiratory sofya jpvt=1714) present GRAM STAIN RESULT (BEAKER) <1+ WBCs (test pmry=4410) GRAM STAIN RESULT (BEAKER) No organisms seen (test lmlg=53285) SPIN/CONCENTRATION [id number] 16:13:00 Test Item Value Reference Range Comments CONCENTRATION CHARGED (BEAKER) (test sfaj=0397) Done EBUS FNA [id number] 16:00:00 Test Item Value Reference Range Comments CYTOLOGY RESULT POINTER (BEAKER) (test See Separate Report kfsi=9043) EBUS FNA [id number] 16:00:00 Test Item Value Reference Range Comments CYTOLOGY RESULT POINTER (BEAKER) (test See Separate Report ayyt=4932) EBUS FNA [id number] 16:00:00 Test Item Value Reference Range Comments CYTOLOGY RESULT POINTER (BEAKER) (test See Separate Report liwz=1894) EBUS FNA [id number] 16:00:00 Test Item Value Reference Range Comments CYTOLOGY RESULT POINTER (BEAKER) (test See Separate Report xwbg=2039) FL, CHIEF LIBRARIAN EXTENSION DEPARTMENT IN OR/30 MINUTE [id number] 13:58:00Reason for exam:-> surgical procedurdFINAL REPORT Intraoperative fluoroscopy. CLINICAL HISTORY: surgical procedurd. FINDINGS: Zero fluoroscopically acquired images were acquired by the referring physician. An intraoperative verbal report was not requested. Fluoroscopy was not performed by the undersigned. Fluoroscopy time: 256 seconds. Zero images. Signed: Alberto Otooleeport Verified Date/Time: 09/24/2018 13:58:14 Reading Location: [address] Consult Reading Room RAD, CHEST, 1 VIEW, NON [id number] 13 :43:00Reason for exam:->s/p RLL TBBX, cough, RULE OUT PTXFINAL REPORT Portable chest. CLINICAL HISTORY: s/p RLL [...] the right clinical setting. Signed: Alberto Otoole Verified Date/Time: 09/24/2018 13:43: 14 Reading Location: [address] Consult Reading Room BASIC METABOLIC [id number] 08:46:00 Test Item Value Reference Range Comments SODIUM (BEAKER) (test 139 meq/L 136-145 brxi=727) POTASSIUM (BEAKER) (test 3.2 meq/L 3.5-5.1 Specimen slightly tpph=863) hemolyzed CHLORIDE (BEAKER) (test 99 meq/L 98-107 xchi=139) CO2 (BEAKER) (test 25 meq/L 22-29 umtj=894) BLOOD UREA NITROGEN 18 mg/dL 7-21 (BEAKER) (test ntfd=493) CREATININE (BEAKER) (test 0.81 mg/dL 0.57-1.25 Specimen slightly dyti=923) hemolyzed GLUCOSE RANDOM (BEAKER) 121 mg/dL 70-105 (test mqgj=099) CALCIUM (BEAKER) (test 9.7 mg/dL 8.4-10.2 kewm=342) EGFR (BEAKER) (test 96 mL/min/1.73 sq m ESTIMATED GFR IS NOT reqa=1990) ACCURATE CREATININE CLEARANCE IN PREDICTING GLOMERULAR FILTRATION RATE. ESTIMATED GFR IS NOT APPLICABLE FOR DIALYSIS PATIENTS. PROTHROMBIN TIME/[id number] 07:20:00 Test Item Value Reference Range Comments PROTIME (BEAKER) (test eeph=341) 13.1 seconds 11.7-14.7 INR (BEAKER) (test ijai=611) 1.0 <=5.9 RECOMMENDED COUMADIN/WARFARIN INR THERAPY RANGESSTANDARD DOSE: 2.0 - 3.0 Includes: PROPHYLAXIS forvenous thrombosis, systemic embolization; TREATMENT for venous thrombosis and/or pulmonary embolus.HIGH RISK: Target INR is 2.5-3.5 for patients with mechanical heart valves.CBC W/PLT COUNT & AUTO [id number] 07:08:00 Test Item Value Reference Range Comments WHITE BLOOD CELL COUNT (BEAKER) (test lpny=840) 9.9 K/ L 3.5-10.5 RED BLOOD CELL COUNT (BEAKER) (test wcqg=744) 4.83 M/ L 4.63-6.08 HEMOGLOBIN (BEAKER) (test rccj=716) 13.4 GM/DL 13.7-17.5 HEMATOCRIT (BEAKER) (test xprb=779) 41.1 % 40.1-51.0 MEAN CORPUSCULAR VOLUME (BEAKER) (test jjcy=238) 85.1 fL 79.0-92.2 MEAN CORPUSCULAR HEMOGLOBIN (BEAKER) (test 27.7 pg 25.7-32.2 zjyz=341) MEAN CORPUSCULAR HEMOGLOBIN CONC (BEAKER) (test 32.6 GM/DL 32.3-36.5 apcv=983) RED CELL DISTRIBUTION WIDTH (BEAKER) (test 16.6 % 11.6-14.4 abrg=822) PLATELET COUNT (BEAKER) (test sola=182) 209 K/CU MM 150-450 MEAN PLATELET VOLUME (BEAKER) (test nlxg=219) 10.6 fL 9.4-12.4 NUCLEATED RED BLOOD CELLS (BEAKER) (test 0 /100 WBC 0-0 hgru=739) NEUTROPHILS RELATIVE PERCENT (BEAKER) (test 68 % nndi=665) LYMPHOCYTES RELATIVE PERCENT (BEAKER) (test 22 % rhzm=563) MONOCYTES RELATIVE PERCENT (BEAKER) (test 6 % jlpz=043) EOSINOPHILS RELATIVE PERCENT (BEAKER) (test 2 % vseu=468) BASOPHILS RELATIVE PERCENT (BEAKER) (test 1 % ftzg=437) NEUTROPHILS ABSOLUTE COUNT (BEAKER) (test 6.73 K/ L 1.78-5.38 kmmb=628) LYMPHOCYTES ABSOLUTE COUNT (BEAKER) (test 2.20 K/ L 1.32-3.57 xyss=821) MONOCYTES ABSOLUTE COUNT (BEAKER) (test 0.59 K/ L 0.30-0.82 ezxf=544) EOSINOPHILS ABSOLUTE COUNT (BEAKER) (test 0.24 K/ L 0.04-0.54 llij=943) BASOPHILS ABSOLUTE COUNT (BEAKER) (test 0.07 K/ L 0.01-0.08 puye=645) IMMATURE GRANULOCYTES-RELATIVE PERCENT (BEAKER) 0 % 0-1 (test cdxl=2884) POCT-GLUCOSE [id number] 06:03:00 Test Item Value Reference Range Comments POC-GLUCOSE METER (BEAKER) 136 mg/dL 70-[address] [facility] [address] [place] [address] (test nkue=6825) [facility] [address] BLOOD [id number] 19:01:00 Test Item Value Reference Range Comments CULTURE (BEAKER) (test tpjo=3261) No growth in 5 days BLOOD [id number] 19:01:00 Test Item Value Reference Range Comments CULTURE (BEAKER) (test aeub=2412) No growth in 5 days BLOOD [id number] 17:09:00 Test Item Value Reference Range Comments CULTURE (BEAKER) (test ESCHERICHIA COLI From Aerobic Bottle rldt=5049) Only Escherichia coli Amikacin (test code=1) Ampicillin + Sulbactam (test code=6) Aztreonam (test code=32) Cefepime (test code=51) Cefoxitin (test code=68) Ceftazidime (test code=27) Ceftriaxone (test code=52) Ertapenem (test code=38) Gentamicin (test code=18) Levofloxacin (test code=22) Meropenem (test code=34) Nitrofurantoin (test code=23) Piperacillin + Tazobactam (test code=29) Tetracycline (test code=2) Tobramycin (test code=25) Trimethoprim + Sulfamethoxazole (test code=47) GRAM STAIN RESULT (BEAKER) From aerobic bottle (test besy=2897) only: gram negative rods CT, CHEST, WITH HIGH RESOLUTION, INTERSTITAL LUNG [id number] 19:09: 00Reason for exam:->evaluate for lung nodule please see comments belowReason for exam:->VERAN NAVIGATION PROTOCOL, 0.625mm cuts.FINAL REPORT CT Chest without contrast History: Lung [...] size, and/or use of iterative reconstruction technique. Findings:No mediastinal lymphadenopathy. No definite hilar enlargement. Normal size heart. No pericardial effusion. Significant underlying atherosclerotic disease, with postoperative changes of prior CABG surgery. No thoracic aortic aneurysm. Normal caliber of main pulmonary trunk. Patent central airways. Interval development of a small right pleural effusion. No pneumothorax is appreciated. Focal airspace disease has developed within the medial, inferior right lower lobe, which isprobably subsegmental atelectasis. A 2.2 cm right lower lobe nodule is unchanged in size. Increasingbilateral groundglass densities are noted within the lower lobes and posterior portions of the upperlobes.. Partially visualized common bile duct stent within the upper abdomen. No aggressive osseous lesion. Impression: 1. Increasing bilateral groundglass opacities, which could represent multifocalpneumonia or interstitial lung disease.2. Small right pleural effusion.3. Unchanged 2.2 cm right lower lobe nodule. Signed: Louis Cronin MDReport Verified Date/Time: 08/30/2018 19:09:11 Reading Location: [facility] Mammo Reading Room Electronically signed by: LOUIS CRONIN MD on 2018 07:09PMCOMPREHENSIVE METABOLIC [id number] 06:31:00 Test Item Value Reference Range Comments TOTAL PROTEIN (BEAKER) 5.9 gm/dL 6.0-8.3 (test lcmd=418) ALBUMIN (BEAKER) (test 2.5 g/dL 3.5-5.0 qpnw=8529) ALKALINE PHOSPHATASE 147 U/L 40-150 (BEAKER) (test bgku=151) BILIRUBIN TOTAL (BEAKER) 3.2 mg/dL 0.2-1.2 (test legi=155) SODIUM (BEAKER) (test 137 meq/L 136-145 vuun=150) POTASSIUM (BEAKER) (test 4.0 meq/L 3.5-5.1 idmx=988) CHLORIDE (BEAKER) (test 104 meq/L 98-107 thlu=193) CO2 (BEAKER) (test 25 meq/L 22-29 ebxf=062) BLOOD UREA NITROGEN 12 mg/dL 7-21 (BEAKER) (test asjm=916) CREATININE (BEAKER) (test 0.64 mg/dL 0.57-1.25 cfsy=027) GLUCOSE RANDOM (BEAKER) 86 mg/dL 70-105 (test bagp=809) CALCIUM (BEAKER) (test 8.8 mg/dL 8.4-10.2 zqjm=051) AST (SGOT) (BEAKER) (test 49 U/L 5-34 colk=254) ALT (SGPT) (BEAKER) (test 48 U/L 6-55 rzqn=816) EGFR (BEAKER) (test 126 mL/min/1.73 sq ESTIMATED GFR IS NOT kcgs=5441) m ACCURATE CREATININE CLEARANCE IN PREDICTING GLOMERULAR FILTRATION RATE. ESTIMATED GFR IS NOT APPLICABLE FOR DIALYSIS PATIENTS. Specimen slightly [id number] 06:20:00 Test Item Value Reference Range Comments PARTIAL THROMBOPLASTIN TIME (BEAKER) (test 34.0 seconds 22.5-36.0 laqx=533) PROTHROMBIN TIME/[id number] 06:19:00 Test Item Value Reference Range Comments PROTIME (BEAKER) (test zeui=067) 13.8 seconds 11.7-14.7 INR (BEAKER) (test ljcj=702) 1.1 <=5.9 RECOMMENDED COUMADIN/WARFARIN INR THERAPY RANGESSTANDARD DOSE: 2.0 - 3.0 Includes: PROPHYLAXIS forvenous thrombosis, systemic embolization; TREATMENT for venous thrombosis and/or pulmonary embolus.HIGH RISK: Target INR is 2.5-3.5 for patients with mechanical heart valves.CBC W/PLT COUNT & AUTO [id number] 06:05:00 Test Item Value Reference Range Comments WHITE BLOOD CELL COUNT (BEAKER) (test pbkb=823) 9.2 K/ L 3.5-10.5 RED BLOOD CELL COUNT (BEAKER) (test neek=414) 3.75 M/ L 4.63-6.08 HEMOGLOBIN (BEAKER) (test cgbh=866) 10.1 GM/DL 13.7-17.5 HEMATOCRIT (BEAKER) (test wlid=006) 32.8 % 40.1-51.0 MEAN CORPUSCULAR VOLUME (BEAKER) (test biic=022) 87.5 fL 79.0-92.2 MEAN CORPUSCULAR HEMOGLOBIN (BEAKER) (test 26.9 pg 25.7-32.2 bgda=409) MEAN CORPUSCULAR HEMOGLOBIN CONC (BEAKER) (test 30.8 GM/DL 32.3-36.5 naur=224) RED CELL DISTRIBUTION WIDTH (BEAKER) (test 17.0 % 11.6-14.4 edvo=793) PLATELET COUNT (BEAKER) (test vaue=009) 304 K/CU MM 150-450 MEAN PLATELET VOLUME (BEAKER) (test owgv=333) 10.2 fL 9.4-12.4 NUCLEATED RED BLOOD CELLS (BEAKER) (test 0 /100 WBC 0-0 ystj=878) NEUTROPHILS RELATIVE PERCENT (BEAKER) (test 63 % kaix=683) LYMPHOCYTES RELATIVE PERCENT (BEAKER) (test 25 % yont=024) MONOCYTES RELATIVE PERCENT (BEAKER) (test 6 % myll=274) EOSINOPHILS RELATIVE PERCENT (BEAKER) (test 2 % vwet=327) BASOPHILS RELATIVE PERCENT (BEAKER) (test 1 % fqwl=440) NEUTROPHILS ABSOLUTE COUNT (BEAKER) (test 5.82 K/ L 1.78-5.38 itll=193) LYMPHOCYTES ABSOLUTE COUNT (BEAKER) (test 2.28 K/ L 1.32-3.57 fmur=045) MONOCYTES ABSOLUTE COUNT (BEAKER) (test 0.54 K/ L 0.30-0.82 kudg=155) EOSINOPHILS ABSOLUTE COUNT (BEAKER) (test 0.20 K/ L 0.04-0.54 jamn=688) BASOPHILS ABSOLUTE COUNT (BEAKER) (test 0.08 K/ L 0.01-0.08 kais=444) IMMATURE GRANULOCYTES-RELATIVE PERCENT (BEAKER) 3 % 0-1 (test obmv=5006) BLOOD [id number] 01:01:00 Test Item Value Reference Range Comments CULTURE (BEAKER) (test ywrr=8195) No growth in 5 days URINE [id number] 10:16:00 Test Item Value Reference Range Comments CULTURE (BEAKER) (test wivt=2668) No growth [id number] 05:24:00 Test Item Value Reference Range Comments MAGNESIUM (BEAKER) (test cknu=487) 1.5 mg/dL 1.6-2.6 BASIC METABOLIC [id number] 05:47:00 Test Item Value Reference Range Comments SODIUM (BEAKER) (test 138 meq/L 136-145 yati=954) POTASSIUM (BEAKER) (test 4.0 meq/L 3.5-5.1 cwpf=547) CHLORIDE (BEAKER) (test 104 meq/L 98-107 mwhh=899) CO2 (BEAKER) (test 27 meq/L 22-29 fdoe=987) BLOOD UREA NITROGEN 15 mg/dL 7-21 (BEAKER) (test vanb=585) CREATININE (BEAKER) (test 0.69 mg/dL 0.57-1.25 ipon=675) GLUCOSE RANDOM (BEAKER) 83 mg/dL 70-105 (test maqw=312) CALCIUM (BEAKER) (test 9.2 mg/dL 8.4-10.2 xigb=422) EGFR (BEAKER) (test 115 mL/min/1.73 sq m ESTIMATED GFR IS NOT oycd=6982) ACCURATE CREATININE CLEARANCE IN PREDICTING GLOMERULAR FILTRATION RATE. ESTIMATED GFR IS NOT APPLICABLE FOR DIALYSIS PATIENTS. Specimen slightly ictericCBC W/PLT COUNT & AUTO [id number] 07:54 :00 Test Item Value Reference Range Comments WHITE BLOOD CELL COUNT (BEAKER) (test gjuj=141) 9.6 K/ L 3.5-10.5 RED BLOOD CELL COUNT (BEAKER) (test csqg=223) 3.55 M/ L 4.63-6.08 HEMOGLOBIN (BEAKER) (test gkxd=873) 9.7 GM/DL 13.7-17.5 HEMATOCRIT (BEAKER) (test vnqa=817) 31.2 % 40.1-51.0 MEAN CORPUSCULAR VOLUME (BEAKER) (test jpvy=838) 87.9 fL 79.0-92.2 MEAN CORPUSCULAR HEMOGLOBIN (BEAKER) (test 27.3 pg 25.7-32.2 xhog=546) MEAN CORPUSCULAR HEMOGLOBIN CONC (BEAKER) (test 31.1 GM/DL 32.3-36.5 iigq=261) RED CELL DISTRIBUTION WIDTH (BEAKER) (test 17.9 % 11.6-14.4 yzzq=283) PLATELET COUNT (BEAKER) (test yosl=647) 243 K/CU MM 150-450 MEAN PLATELET VOLUME (BEAKER) (test exdm=346) 11.1 fL 9.4-12.4 NUCLEATED RED BLOOD CELLS (BEAKER) (test 0 /100 WBC 0-0 axog=917) (CELLAVISION MANUAL DIFF)2018-08-27 07:54:00 Test Item Value Reference Range Comments NEUTROPHILS - REL (CELLAVISION)(BEAKER) (test 75 % ytcq=4857) LYMPHOCYTES - REL (CELLAVISION)(BEAKER) (test 15 % dnrt=7960) MONOCYTES - REL (CELLAVISION)(BEAKER) (test 5 % auwb=6564) EOSINOPHILS - REL (CELLAVISION)(BEAKER) (test 2 % wqxr=7386) ATYPICAL LYMPHOCYTES - REL (CELLAVISION)(BEAKER) 3 % 0-0 (test akfk=7516) NEUTROPHILS - ABS (CELLAVISION)(BEAKER) (test 7.20 K/ul 1.78-5.38 yuko=6949) LYMPHOCYTES - ABS (CELLAVISION)(BEAKER) (test 1.44 K/ul 1.32-3.57 eiml=4315) MONOCYTES - ABS (CELLAVISION)(BEAKER) (test 0.48 K/uL 0.30-0.82 zfxu=4765) EOSINOPHILS - ABS (CELLAVISION)(BEAKER) (test 0.19 K/uL 0.04-0.54 swmp=2875) ATYPICAL LYMPHOCYTES - ABS (CELLAVISION)(BEAKER) 0.29 K/uL 0.00-0.00 (test xepl=8364) TOTAL COUNTED (BEAKER) (test lsld=0114) 100 WBC MORPHOLOGY (BEAKER) (test huao=479) Normal LARGE PLT(BEAKER) (test uzyw=0251) Present POLYCHROMATOPHILLIC RBCS(BEAKER) (test bxzg=943) 1+ few HYPOCHROMIA (BEAKER) (test dpwd=875) 1+ few ARTIFACT (CELLAVISION)(BEAKER) (test cull=9451) Present PLATELET CONCENTRATION (CELLAVISION)(BEAKER) (test Adequate isvl=3051) Received comment: User comments: Slide comments:[id number] 05:40:00 Test Item Value Reference Range Comments PHOSPHORUS (BEAKER) (test ddil=420) 2.8 mg/dL 2.3-4.7 BASIC METABOLIC [id number] 05:40:00 Test Item Value Reference Range Comments SODIUM (BEAKER) (test 138 meq/L 136-145 awnf=742) POTASSIUM (BEAKER) (test 3.7 meq/L 3.5-5.1 xprn=774) CHLORIDE (BEAKER) (test 105 meq/L 98-107 zido=336) CO2 (BEAKER) (test 26 meq/L 22-29 zucr=499) BLOOD UREA NITROGEN 17 mg/dL 7-21 (BEAKER) (test bdno=444) CREATININE (BEAKER) (test 0.68 mg/dL 0.57-1.25 slul=933) GLUCOSE RANDOM (BEAKER) 83 mg/dL 70-105 (test jqyt=188) CALCIUM (BEAKER) (test 9.1 mg/dL 8.4-10.2 sdtv=126) EGFR (BEAKER) (test 117 mL/min/1.73 sq m ESTIMATED GFR IS NOT kwwk=8161) ACCURATE CREATININE CLEARANCE IN PREDICTING GLOMERULAR FILTRATION RATE. ESTIMATED GFR IS NOT APPLICABLE FOR DIALYSIS PATIENTS. Specimen slightly ictericHEPATIC FUNCTION [id number] 05:40:00 Test Item Value Reference Range Comments TOTAL PROTEIN (BEAKER) (test feif=914) 5.8 gm/dL 6.0-8.3 ALBUMIN (BEAKER) (test lryt=3345) 2.5 g/dL 3.5-5.0 BILIRUBIN TOTAL (BEAKER) (test pgcl=417) 4.1 mg/dL 0.2-1.2 BILIRUBIN DIRECT (BEAKER) (test vlvl=347) 3.1 mg/dL 0.1-0.5 ALKALINE PHOSPHATASE (BEAKER) (test mquo=796) 162 U/L 40-150 AST (SGOT) (BEAKER) (test ekqw=714) 61 U/L 5-34 ALT (SGPT) (BEAKER) (test msqz=477) 49 U/L 6-55 Specimen slightly [id number] 05:30:00 Test Item Value Reference Range Comments MAGNESIUM (BEAKER) (test refo=398) 1.5 mg/dL 1.6-2.6 CT, [id number] 03:42:00FINAL REPORT CT, ABDOMEN \\T \\ PELVIS, WITH IV CONTRAST INDICATION: Sepsise coli bacteremia COMPARISON: CT abdomen pelvis dated 08/13/2017. TECHNIQUE:Post contrast abdomen and pelvisCT. Coronal and sagittal reformatted images obtained. DOSE REDUCTION: Dose modulation, iterative reconstruction, and/or weight-based adjustment of the mA/ kV was utilized to reduce the radiation dose to as low as reasonably achievable. FINDINGS: Examination limited by poor contrast opacification of intravascular structures. Lower thorax: Minimal bilateral lower lobe atelectasis. Incomplete evaluatedgroundglass airspace opacities in the right lower lobe superiorly may represent atypical infection in the proper clinical setting. No pneumothorax or pleural effusion. The heart is normal in size. No pericardial effusion. Incompletely evaluated pacer leads in the right ventricle. Liver: Limited evaluation of pelvic parenchyma given timing of contrast however no discrete lesions are identified.Gallbladder and biliary tree : Thickening of the gallbladder wall with gas in the gallbladder lumen. Gallbladder is nondistended. Trace pericholecystic fluid. There is a metal stent within the common bile duct.Pneumobilia is again noted.Pancreas: Incompletely evaluated pancreatic head mass is unchanged 2.9 m cystic structure in the uncinate.Spleen: No acute findingsAdrenal Glands: No acute findings.Kidneys and ureters: No hydronephrosis or nephrolithiasis. Multiple simple bilateral renal cysts the largest of which is exophytic from the left lower pole measuring 20.5 cm. There is an indeterminant exophytic left upper pole renal lesion measuring 1.5 cm. No hydroureter.Bladder and reproductive organs: Bladder is unremarkable. Prostate gland is normal. Stomach and Duodenum : No significant findings.Small and large intestine: Diverticulosis of the large bowel without evidence of acute diverticulitis. Small and large bowel are normal in caliber.Appendix: Normal. Major vascular structures: The abdominal aorta is normal in caliber with atherosclerotic calcifications.Peritoneum and retroperitoneum: Mild mesenteric stranding stranding the pancreatic head. No pathologically enlarged retroperitoneal lymph nodes. No pneumoperitoneum. No drainable fluid collection. Skeleton: No acute bony abnormality.Additional findings: None. IMPRESSION:Examination limited by poor contrast opacification of intravascular structures. Incompletely evaluated groundglass airspace opacities in the right lower lobe superiorly mayrepresent atypical infection in the proper clinical setting. [...] renal protocol cross-sectional imaging. Signed: Kobi Burgos MDReport Verified Date/Time: 08/27/2018 03:42:37 Reading Location: [address] Reading Room URINALYSIS W/ REFLEX URINE [id number] 16:37:00 Test Item Value Reference Range Comments COLOR (BEAKER) (test pvxu=156) Yellow CLARITY (BEAKER) (test lqye=212) Hazy SPECIFIC GRAVITY UA (BEAKER) (test huaf=650) 1.012 1.001-1.035 PH UA (BEAKER) (test oqir=332) 5.5 5.0-8.0 PROTEIN UA (BEAKER) (test tieu=498) 20 mg/dL Negative GLUCOSE UA (BEAKER) (test uuln=542) Negative Negative KETONES UA (BEAKER) (test dpyk=789) Negative Negative BILIRUBIN UA (BEAKER) (test zyzo=647) Positive Negative BLOOD UA (BEAKER) (test nljj=026) Negative Negative NITRITE UA (BEAKER) (test elvl=814) Negative Negative LEUKOCYTE ESTERASE UA (BEAKER) (test rdfy=824) Trace Negative UROBILINOGEN UA (BEAKER) (test khqy=380) 0.2 mg/dL 0.2-1.0 RBC UA (BEAKER) (test foca=644) 1 /HPF WBC UA (BEAKER) (test sjtj=966) 5 /HPF BACTERIA (BEAKER) (test fvxj=315) Rare MUCUS (BEAKER) (test qelu=1032) Rare SQUAMOUS EPITHELIAL (BEAKER) (test hlhu=620) < /HPF SOURCE(BEAKER) (test zchr=6646) BLOOD CULTURE IDENTIFICATION [id number] 12:00:00 Test Item Value Reference Range Comments LISTERIA MONOCYTOGENES (test Not detected Not detected yhrs=[id number]) STAPHYLOCOCCUS (test Not detected Not detected kdrb=8337574) STAPHYLOCOCCUS AUREUS (test Not detected Not detected bhjj=6536542) STREPTOCOCCUS (test Not detected Not detected thvx=6167024) STREPTOCOCCUS AGALACTIAE (GROUP Not detected Not detected B) (test shwu=4773619) STREPTOCOCCUS PNEUMONIAE (test Not detected Not detected nfwy=9110607) STREPTOCOCCUS PYOGENES (GROUP Not detected Not detected A) (test drzz=1216686) ACINETOBACTER BAUMANNII (test Not detected Not detected ggna=6923946) HAEMOPHILUS INFLUENZAE (test Not detected Not detected vxai=1440413) NEISSERIA MENINGITIDIS (test Not detected Not detected nbug=4095137) ENTEROBACTERIACEAE (test Detected Not detected apmk=8628376) ENTEROBACTER CLOACOE COMPLEX Not detected Not detected (test skap=3984468) KLEBSIELLA OXYTOCA (test Not detected Not detected vafm=4386191) KLEBSIELLA PNEUMONIAE (test Not detected Not detected jmed=0215) PROTEUS (test fhwu=7296829) Not detected Not detected SERRATIA MARCESCENS (test Not detected Not detected lcvi=2870349) DAGO ALBICANS (test Not detected Not detected umyd=3196613) DAGO GLABRATA (test Not detected Not detected twdo=8587248) DAGO KRUSEI (test Not detected Not detected vzdz=8948634) DAGO PARAPSILOSIS (test Not detected Not detected vvjh=0393706) DAGO TROPICALIS (test Not detected Not detected wvbq=5282922) ESCHERICHIA COLI (test Detected Not detected First line therapy: oaxn=9511184) Meropenem. De-escalate based on susceptibilities.This test does not evaluate for ESBLReference Range: Not Detected METHICILLIN-RESISTANCE GENE Not detected (test jgyq=9671552) VANCOMYCIN-RESISTANCE GENE Not detected (test syui=6276400) CARBAPENEM-RESISTANCE GENE Not detected Not detected (test svxd=6054623) ENTEROCOCCUS-BEAKER (test Not detected Not detected suky=0566170) PSEUDOMONAS AERUGINOSA-BEAKER Not detected Not detected (test cppt=1319486) Other bacteria and resistance markers not targeted by this PCR panel cannot be excluded; therefore clinical correlation and follow up of serology, culture results, and other molecular studies is required. The results are not intended to be used as the sole means for clinical diagnosis or patient management decisions. This sample was tested at the [facility] using the [employer] Blood Culture ID Panel. It is FDA cleared and has been verified and approved by the [facility] for clinical use. This laboratory is CLIA-certified and College ofAmerican Pathologists (CAP)-accredited to perform high complexity testing.[id number] 05:49:00 Test Item Value Reference Range Comments PHOSPHORUS (BEAKER) (test cqjw=375) 3.0 mg/dL 2.3-4.7 [id number] 05:49:00 Test Item Value Reference Range Comments MAGNESIUM (BEAKER) (test sohg=890) 1.6 mg/dL 1.6-2.6 BASIC METABOLIC [id number] 05:49:00 Test Item Value Reference Range Comments SODIUM (BEAKER) (test 140 meq/L 136-145 gfyt=049) POTASSIUM (BEAKER) (test 4.1 meq/L 3.5-5.1 jmmx=193) CHLORIDE (BEAKER) (test 106 meq/L 98-107 rvcv=135) CO2 (BEAKER) (test 25 meq/L 22-29 vbgp=334) BLOOD UREA NITROGEN 18 mg/dL 7-21 (BEAKER) (test azig=004) CREATININE (BEAKER) (test 0.73 mg/dL 0.57-1.25 zdce=225) GLUCOSE RANDOM (BEAKER) 96 mg/dL 70-105 (test pswe=653) CALCIUM (BEAKER) (test 8.7 mg/dL 8.4-10.2 iugx=487) EGFR (BEAKER) (test 108 mL/min/1.73 sq m ESTIMATED GFR IS NOT jrry=3913) ACCURATE CREATININE CLEARANCE IN PREDICTING GLOMERULAR FILTRATION RATE. ESTIMATED GFR IS NOT APPLICABLE FOR DIALYSIS PATIENTS. Specimen moderately ictericHEPATIC FUNCTION [id number] 05:49:00 Test Item Value Reference Range Comments TOTAL PROTEIN (BEAKER) (test lakf=933) 6.0 gm/dL 6.0-8.3 ALBUMIN (BEAKER) (test bdey=1514) 2.6 g/dL 3.5-5.0 BILIRUBIN TOTAL (BEAKER) (test sybg=455) 4.7 mg/dL 0.2-1.2 BILIRUBIN DIRECT (BEAKER) (test uzan=892) 3.7 mg/dL 0.1-0.5 ALKALINE PHOSPHATASE (BEAKER) (test mdaf=365) 175 U/L 40-150 AST (SGOT) (BEAKER) (test hjiy=958) 47 U/L 5-34 ALT (SGPT) (BEAKER) (test bebk=051) 42 U/L 6-55 Specimen moderately ictericLACTIC ACID, VENOUS, WHOLE [id number] 05:30:00 Test Item Value Reference Range Comments LACTATE BLOOD VENOUS (2) 1.0 mmol/L 0.5-2.2 Specimen slightly hemolyzed (BEAKER) (test stuy=3484) Specimen slightly ictericCBC W/PLT COUNT & AUTO [id number] 05:24 :00 Test Item Value Reference Range Comments WHITE BLOOD CELL COUNT (BEAKER) (test eyyb=119) 13.1 K/ L 3.5-10.5 RED BLOOD CELL COUNT (BEAKER) (test spon=766) 3.33 M/ L 4.63-6.08 HEMOGLOBIN (BEAKER) (test nfyi=772) 9.3 GM/DL 13.7-17.5 HEMATOCRIT (BEAKER) (test ujfk=694) 29.5 % 40.1-51.0 MEAN CORPUSCULAR VOLUME (BEAKER) (test lrzz=887) 88.6 fL 79.0-92.2 MEAN CORPUSCULAR HEMOGLOBIN (BEAKER) (test 27.9 pg 25.7-32.2 zyju=858) MEAN CORPUSCULAR HEMOGLOBIN CONC (BEAKER) (test 31.5 GM/DL 32.3-36.5 fipu=221) RED CELL DISTRIBUTION WIDTH (BEAKER) (test 18.3 % 11.6-14.4 dlkg=012) PLATELET COUNT (BEAKER) (test lwdr=610) 240 K/CU MM 150-450 MEAN PLATELET VOLUME (BEAKER) (test kcxu=368) 11.2 fL 9.4-12.4 NUCLEATED RED BLOOD CELLS (BEAKER) (test 0 /100 WBC 0-0 mour=330) NEUTROPHILS RELATIVE PERCENT (BEAKER) (test 78 % scuw=693) LYMPHOCYTES RELATIVE PERCENT (BEAKER) (test 12 % vpzh=245) MONOCYTES RELATIVE PERCENT (BEAKER) (test 8 % uygx=880) EOSINOPHILS RELATIVE PERCENT (BEAKER) (test 1 % tvek=912) BASOPHILS RELATIVE PERCENT (BEAKER) (test 0 % hpgd=655) NEUTROPHILS ABSOLUTE COUNT (BEAKER) (test 10.21 K/ L 1.78-5.38 waly=273) LYMPHOCYTES ABSOLUTE COUNT (BEAKER) (test 1.58 K/ L 1.32-3.57 pvjl=636) MONOCYTES ABSOLUTE COUNT (BEAKER) (test 1.06 K/ L 0.30-0.82 coov=980) EOSINOPHILS ABSOLUTE COUNT (BEAKER) (test 0.18 K/ L 0.04-0.54 gxkj=669) BASOPHILS ABSOLUTE COUNT (BEAKER) (test 0.02 K/ L 0.01-0.08 vyjc=907) IMMATURE GRANULOCYTES-RELATIVE PERCENT (BEAKER) 1 % 0-1 (test snlb=9504) U/S, ABDOMINAL, [id number] 21:35:00Reason for exam:->HEMATURIAReason for exam:->GENERALIZED WEAKNESS, NOT ASSOCIATED WITH EXTREMITIESFINAL REPORT Abdominal ultrasound Clinical History: Hematuria Comparison: CTfrom 08/13/2018 Findings:Sonographic evaluation of the the abdomen is performed. [...] cysts are identified arising off the left kidney.There is no evidence for solid renal mass, hydronephrosis, or shadowing calculi. The IVC is unremarkable. The visual portion the aorta is normal in caliber. There is no ascites or pleural fluid visualized. IMPRESSION: 1. Mild intrahepatic biliary ductal dilatation and pneumobilia, as noted on the recent prior CT examination.2. Nonspecific mild gallbladder wall thickening. No other sonographic evidence for acute cholecystitis.3. Bilateral renal cysts.4. Splenomegaly. Signed: Abisai Cortes MDReport Verified Date/Time: 08/25/2018 21: 35:53 Reading Location: [address] Consult Reading Room TROPONIN [id number] 11:56: 00 Test Item Value Reference Range Comments TROPONIN I (BEAKER) (test spor=217) 0.03 ng/mL 0.00-0.03 Troponin I (TnI) levels must be interpreted in the context of the presenting symptoms and the clinical findings. Elevated TnI levels indicate myocardial damage, but are not specific for ischemic heart disease. Elevated TnI levels are seen in patients with other cardiac conditions (including myocarditis and congestive heart failure), and slight TnI elevations occur in patients with other conditions, including sepsis, renal failure, acidosis, acute neurological disease, and persistent tachyarrhythmia.CREATINE KINASE (CK)2018-08-25 11:52:00 Test Item Value Reference Range Comments CREATINE KINASE TOTAL (BEAKER) (test bcsd=123) 13 U/L 29-200 [id number] 11:50:00 Test Item Value Reference Range Comments PHOSPHORUS (BEAKER) (test midu=279) 3.4 mg/dL 2.3-4.7 [id number] 11:50:00 Test Item Value Reference Range Comments MAGNESIUM (BEAKER) (test fguu=223) 1.5 mg/dL 1.6-2.6 HEPATIC FUNCTION [id number] 11:50:00 Test Item Value Reference Range Comments TOTAL PROTEIN (BEAKER) (test yxzx=500) 6.8 gm/dL 6.0-8.3 ALBUMIN (BEAKER) (test wrha=8389) 2.9 g/dL 3.5-5.0 BILIRUBIN TOTAL (BEAKER) (test qwyy=865) 6.1 mg/dL 0.2-1.2 BILIRUBIN DIRECT (BEAKER) (test rtkv=753) 4.4 mg/dL 0.1-0.5 ALKALINE PHOSPHATASE (BEAKER) (test nbva=355) 209 U/L 40-150 AST (SGOT) (BEAKER) (test vxdn=125) 57 U/L 5-34 ALT (SGPT) (BEAKER) (test nsjj=911) 50 U/L 6-55 Specimen moderately ictericCBC W/PLT COUNT & AUTO [id number] 11: 34:00 Test Item Value Reference Range Comments WHITE BLOOD CELL COUNT (BEAKER) (test tonf=457) 15.5 K/ L 3.5-10.5 RED BLOOD CELL COUNT (BEAKER) (test euks=394) 4.16 M/ L 4.63-6.08 HEMOGLOBIN (BEAKER) (test oqxs=844) 11.2 GM/DL 13.7-17.5 HEMATOCRIT (BEAKER) (test dsto=528) 36.8 % 40.1-51.0 MEAN CORPUSCULAR VOLUME (BEAKER) (test ivar=200) 88.5 fL 79.0-92.2 MEAN CORPUSCULAR HEMOGLOBIN (BEAKER) (test 26.9 pg 25.7-32.2 cyeq=233) MEAN CORPUSCULAR HEMOGLOBIN CONC (BEAKER) (test 30.4 GM/DL 32.3-36.5 gkao=809) RED CELL DISTRIBUTION WIDTH (BEAKER) (test 18.9 % 11.6-14.4 lnpj=487) PLATELET COUNT (BEAKER) (test hjbb=892) 238 K/CU MM 150-450 MEAN PLATELET VOLUME (BEAKER) (test zztc=730) 10.3 fL 9.4-12.4 NUCLEATED RED BLOOD CELLS (BEAKER) (test 0 /100 WBC 0-0 fodn=753) NEUTROPHILS RELATIVE PERCENT (BEAKER) (test 82 % lojc=787) LYMPHOCYTES RELATIVE PERCENT (BEAKER) (test 9 % bqfc=175) MONOCYTES RELATIVE PERCENT (BEAKER) (test 8 % heal=171) EOSINOPHILS RELATIVE PERCENT (BEAKER) (test 1 % dejc=993) BASOPHILS RELATIVE PERCENT (BEAKER) (test 1 % orcp=622) NEUTROPHILS ABSOLUTE COUNT (BEAKER) (test 12.68 K/ L 1.78-5.38 sjbk=318) LYMPHOCYTES ABSOLUTE COUNT (BEAKER) (test 1.31 K/ L 1.32-3.57 rfkl=690) MONOCYTES ABSOLUTE COUNT (BEAKER) (test 1.17 K/ L 0.30-0.82 rece=364) EOSINOPHILS ABSOLUTE COUNT (BEAKER) (test 0.11 K/ L 0.04-0.54 uncz=008) BASOPHILS ABSOLUTE COUNT (BEAKER) (test 0.08 K/ L 0.01-0.08 xpun=086) IMMATURE GRANULOCYTES-RELATIVE PERCENT (BEAKER) 1 % 0-1 (test jsii=4655) BASIC METABOLIC [id number] 04:25:00 Test Item Value Reference Range Comments SODIUM (BEAKER) (test 140 meq/L 136-145 tbcm=700) POTASSIUM (BEAKER) (test 3.7 meq/L 3.5-5.1 lmqw=649) CHLORIDE (BEAKER) (test 107 meq/L 98-107 nhvb=412) CO2 (BEAKER) (test 28 meq/L 22-29 bixc=464) BLOOD UREA NITROGEN 12 mg/dL 7-21 (BEAKER) (test ftvu=924) CREATININE (BEAKER) (test 0.80 mg/dL 0.57-1.25 zera=774) GLUCOSE RANDOM (BEAKER) 111 mg/dL 70-105 (test hqyq=811) CALCIUM (BEAKER) (test 9.0 mg/dL 8.4-10.2 dqxh=210) EGFR (BEAKER) (test 97 mL/min/1.73 sq m ESTIMATED GFR IS NOT etmg=0129) ACCURATE CREATININE CLEARANCE IN PREDICTING GLOMERULAR FILTRATION RATE. ESTIMATED GFR IS NOT APPLICABLE FOR DIALYSIS PATIENTS. Specimen moderately ictericLACTIC ACID, VENOUS, WHOLE [id number] 04:22:00 Test Item Value Reference Range Comments LACTATE BLOOD VENOUS (2) (BEAKER) (test 0.9 mmol/L 0.5-2.2 ebly=5784) Specimen moderately ictericBASIC METABOLIC [id number] 23:37:00 Test Item Value Reference Range Comments SODIUM (BEAKER) (test 137 meq/L 136-145 tgua=793) POTASSIUM (BEAKER) (test 3.9 meq/L 3.5-5.1 aend=110) CHLORIDE (BEAKER) (test 105 meq/L 98-107 dzmz=410) CO2 (BEAKER) (test 22 meq/L 22-29 tkvf=110) BLOOD UREA NITROGEN 13 mg/dL 7-21 (BEAKER) (test owlg=126) CREATININE (BEAKER) (test 0.79 mg/dL 0.57-1.25 xeri=766) GLUCOSE RANDOM (BEAKER) 122 mg/dL 70-105 (test zica=806) CALCIUM (BEAKER) (test 8.8 mg/dL 8.4-10.2 gdoc=443) EGFR (BEAKER) (test 98 mL/min/1.73 sq m ESTIMATED GFR IS NOT rpyb=7202) ACCURATE CREATININE CLEARANCE IN PREDICTING GLOMERULAR FILTRATION RATE. ESTIMATED GFR IS NOT APPLICABLE FOR DIALYSIS PATIENTS. Specimen moderately ictericURINALYSIS W/ [id number] 21:26:00 Test Item Value Reference Range Comments COLOR (BEAKER) (test dfmy=352) Dark Yellow CLARITY (BEAKER) (test tjzw=922) Hazy SPECIFIC GRAVITY UA (BEAKER) (test 1.011 1.001-1.035 yssw=359) PH UA (BEAKER) (test xmab=243) 6.0 5.0-8.0 PROTEIN UA (BEAKER) (test qoot=302) 50 mg/dL Negative GLUCOSE UA (BEAKER) (test dtiy=749) Negative Negative KETONES UA (BEAKER) (test pzzs=387) Negative Negative BILIRUBIN UA (BEAKER) (test xwbt=799) Positive Negative BLOOD UA (BEAKER) (test gcki=429) Small Negative NITRITE UA (BEAKER) (test qndp=094) Positive Negative LEUKOCYTE ESTERASE UA (BEAKER) (test Large Negative pjle=798) UROBILINOGEN UA (BEAKER) (test mnus=885) 0.2 mg/dL 0.2-1.0 RBC UA (BEAKER) (test mmng=642) 1 /HPF WBC UA (BEAKER) (test rzgl=579) 178 /HPF BACTERIA (BEAKER) (test mljg=801) Many MUCUS (BEAKER) (test fqiq=3062) Rare SQUAMOUS EPITHELIAL (BEAKER) (test 1 /HPF ehlc=831) SOURCE(BEAKER) (test vibd=6861) Urine, Clean Catch RAD, CHEST, 1 VIEW, NON [id number] 20:34:00Reason for exam:-> HEMATURIAReason for exam:->GENERALIZED WEAKNESS, NOT ASSOCIATED WITH EXTREMITIESReason for exam:->EVAL FOR INFECTIONShould this be performed at the bedside?->YesFINAL REPORT History: Generalized weakness. Comparison: 10/20/2007 Findings: A single view of the chest is submitted. The examination is limited by lordotic positioning and exclusion of the right costophrenic sulcus. The cardiac silhouette is prominent in size but magnified by technique. Sternotomy wires and a left subclavian ICD are in place. There is mild central pulmonary vascular congestion and perihilar interstitial opacity suggesting mild pulmonary edema. There is no focal consolidation, pneumothorax, large pleural effusion or acute bony abnormality. Signed: Yannick Addison MDReport Verified Date/Time: 08/24/2018 20:34:41 Reading Location: [address] Reading Room [id number] 20:32:00 Test Item Value Reference Range Comments PROCALCITONIN (BEAKER) (test lcua=5918) 1.26 ng/mL <0.05 SEPSIS RISK (ng/mL)Low: 0.05-0.50Intermediate: 0.51-2.00High: & gt;=[id number] 20:23:00 Test Item Value Reference Range Comments LIPASE (BEAKER) (test rezn=322) 97 U/L 8-78 Specimen moderately [id number] 20:22:00 Test Item Value Reference Range Comments PHOSPHORUS (BEAKER) (test timy=700) 2.5 mg/dL 2.3-4.7 [id number] 20:22:00 Test Item Value Reference Range Comments MAGNESIUM (BEAKER) (test hdrj=115) 1.2 mg/dL 1.6-2.6 HEPATIC FUNCTION [id number] 20:22:00 Test Item Value Reference Range Comments TOTAL PROTEIN (BEAKER) (test wopl=362) 6.4 gm/dL 6.0-8.3 ALBUMIN (BEAKER) (test bhwh=6334) 2.7 g/dL 3.5-5.0 BILIRUBIN TOTAL (BEAKER) (test etzu=857) 6.1 mg/dL 0.2-1.2 BILIRUBIN DIRECT (BEAKER) (test ffga=401) 4.5 mg/dL 0.1-0.5 ALKALINE PHOSPHATASE (BEAKER) (test parq=922) 212 U/L 40-150 AST (SGOT) (BEAKER) (test wtdt=529) 58 U/L 5-34 ALT (SGPT) (BEAKER) (test jfjx=340) 52 U/L 6-55 Specimen moderately ictericLACTIC ACID, VENOUS, WHOLE [id number] 20:17:00 Test Item Value Reference Range Comments LACTATE BLOOD VENOUS (2) (BEAKER) (test 1.2 mmol/L 0.5-2.2 jsco=9568) Specimen slightly [id number] 20:14:00 Test Item Value Reference Range Comments AMMONIA (BEAKER) (test jtju=482) 33 mol/L 18-72 CBC W/PLT COUNT & AUTO [id number] 20:08:00 Test Item Value Reference Range Comments WHITE BLOOD CELL COUNT (BEAKER) (test cwam=462) 15.3 K/ L 3.5-10.5 RED BLOOD CELL COUNT (BEAKER) (test jhpn=142) 3.91 M/ L 4.63-6.08 HEMOGLOBIN (BEAKER) (test eamj=534) 10.8 GM/DL 13.7-17.5 HEMATOCRIT (BEAKER) (test gjts=085) 33.2 % 40.1-51.0 MEAN CORPUSCULAR VOLUME (BEAKER) (test vhsl=025) 84.9 fL 79.0-92.2 MEAN CORPUSCULAR HEMOGLOBIN (BEAKER) (test 27.6 pg 25.7-32.2 lfmy=520) MEAN CORPUSCULAR HEMOGLOBIN CONC (BEAKER) (test 32.5 GM/DL 32.3-36.5 ybfg=129) RED CELL DISTRIBUTION WIDTH (BEAKER) (test 19.0 % 11.6-14.4 iijo=856) PLATELET COUNT (BEAKER) (test yypt=202) 242 K/CU MM 150-450 MEAN PLATELET VOLUME (BEAKER) (test pvni=785) 10.6 fL 9.4-12.4 NUCLEATED RED BLOOD CELLS (BEAKER) (test 0 /100 WBC 0-0 cubi=534) NEUTROPHILS RELATIVE PERCENT (BEAKER) (test 84 % pxhe=568) LYMPHOCYTES RELATIVE PERCENT (BEAKER) (test 8 % xnig=235) MONOCYTES RELATIVE PERCENT (BEAKER) (test 7 % tqjj=114) EOSINOPHILS RELATIVE PERCENT (BEAKER) (test 0 % xyqv=069) BASOPHILS RELATIVE PERCENT (BEAKER) (test 0 % qgox=789) NEUTROPHILS ABSOLUTE COUNT (BEAKER) (test 12.83 K/ L 1.78-5.38 yxtv=035) LYMPHOCYTES ABSOLUTE COUNT (BEAKER) (test 1.19 K/ L 1.32-3.57 zqol=573) MONOCYTES ABSOLUTE COUNT (BEAKER) (test 1.01 K/ L 0.30-0.82 gwpu=280) EOSINOPHILS ABSOLUTE COUNT (BEAKER) (test 0.06 K/ L 0.04-0.54 urnb=118) BASOPHILS ABSOLUTE COUNT (BEAKER) (test 0.05 K/ L 0.01-0.08 xkgf=852) IMMATURE GRANULOCYTES-RELATIVE PERCENT (BEAKER) 1 % 0-1 (test rhex=5418) [id number] 19:45:00 Test Item Value Reference Range Comments PARTIAL THROMBOPLASTIN TIME (BEAKER) (test 33.1 seconds 22.5-36.0 vtaf=758) PROTHROMBIN TIME/[id number] 19:44:00 Test Item Value Reference Range Comments PROTIME (BEAKER) (test svwu=965) 14.4 seconds 11.7-14.7 INR (DYLLAN) (test zjuh=761) 1.1 <=5.9 RECOMMENDED COUMADIN/WARFARIN INR THERAPY RANGESSTANDARD DOSE: 2.0 - 3.0 Includes: PROPHYLAXIS forvenous thrombosis, systemic embolization; TREATMENT for venous thrombosis and/or pulmonary embolus.HIGH RISK: Target INR is 2.5-3.5 for patients with mechanical heart valves.KS, [id number] 17:10:00INTRA OP IMAGINGReason for exam:->JAUNDICE, BILIARY STRICTUREFINAL REPORT ERCP 9 views 08/17/2018 5:08 PM CLINICAL HISTORY: Instrument localization COMPARISON: None available IMPRESSION: Please correlate imaging report findings with the procedure note prepared by Dr. Silver, as an intra- procedure imaging consultation was not requested. Reported fluoroscopy time: 0.7 minutes. Signed: Shay Mc Verified Date/Time: 08/17/2018 17 :10:56 Reading Location: [facility] Radiology Reading Room [id number] 10:23 :00Medical Cytology Report Case: [id number] Authorizing Provider: Christian Silver Collected: 08/12/2018 1802 Ordering Location: [address] Received: 08/13/2018 0922 Service Pathologist: Sydney Bowens MD Specimen: Common Bile Duct COMMON BILE DUCT BRUSHING (CYTOSPINS): - RARE GROUPS OF ATYPICAL CELLS, SUSPICIOUS FOR MALIGNANCY (SEE COMMENT)Signing Pathologist Direct Phone Line: [phone] signed by Sydney Bowens MD on 2018 at 10:23 AMCytospins show a few groups of rare atypical cells, with cytological features suspicious for malignancy. The paucity of the rare atypical cells preclude a more definitive diagnosis. Please see cases [id number] and [id number] for further evaluation.[id number] mass, jaundice, biliary obstructionCOMMON BILE DUCT BRUSHING1 brush tip in 25 mls cytorich red; 2 cytospinsCollected: [id number]: [id number] Medical Center, Department of Pathology, [address] [place] [phone], Tel TKaiser [facility], [facility] of [facility], [address] [place] [phone], SkimtiKaiser Perman[facility], Department of Pathology, [address] [place] [phone], Tel FINE NEEDLE ASPIRATION BY [id number] 09:58:00Medical Cytology Report Case: [id number] Authorizing Provider: Christian Silver Collected: 2018 1711 Ordering Location: [address] Received : 08/13/2018 0922 Service Pathologist: Sydney Bowens MD Specimen: Pancreas, Pancreas head mass for routine cyto in CRR PANCREAS HEAD MASS FNA BY CLINICIAN (CYTOSPINS AND CELL BLOCK OF ASPIRATE): - ADENOCARCINOMA Signing Pathologist Direct Phone Line: Please see cases [id number] and [id number], 34729(3.4 X 3.3 cm) Irregular mass in the pancreatic headPANCREAS HEAD MASS FNA15 mls in cytorich red; 4 cytospins, cell blockCollected: [id number]: [id number] [facility], Department of Pathology, [address] [place] [phone], Tel UKaiser [facility], Department of Pathology, [address] [place] [phone], AfcrzdKaiser Permanente [facility], Department of Pathology, [address] [place] [phone], Tel HBC W/PLT COUNT & AUTO [id number] 08:50:00 Test Item Value Reference Range Comments WHITE BLOOD CELL COUNT (BEAKER) (test jkov=313) 15.8 K/ L 3.5-10.5 RED BLOOD CELL COUNT (BEAKER) (test vjmq=358) 5.10 M/ L 4.63-6.08 HEMOGLOBIN (BEAKER) (test tsfj=058) 13.6 GM/DL 13.7-17.5 HEMATOCRIT (BEAKER) (test ehyg=102) 39.6 % 40.1-51.0 MEAN CORPUSCULAR VOLUME (BEAKER) (test nkxu=963) 77.6 fL 79.0-92.2 MEAN CORPUSCULAR HEMOGLOBIN (BEAKER) (test 26.7 pg 25.7-32.2 cexb=748) MEAN CORPUSCULAR HEMOGLOBIN CONC (BEAKER) (test 34.3 GM/DL 32.3-36.5 aimt=949) RED CELL DISTRIBUTION WIDTH (BEAKER) (test 20.8 % 11.6-14.4 pjgz=464) PLATELET COUNT (BEAKER) (test pvsn=347) 217 K/CU MM 150-450 MEAN PLATELET VOLUME (BEAKER) (test wlyu=949) 11.5 fL 9.4-12.4 NUCLEATED RED BLOOD CELLS (BEAKER) (test 0 /100 WBC 0-0 rqmy=222) NEUTROPHILS RELATIVE PERCENT (BEAKER) (test 79 % sonz=088) LYMPHOCYTES RELATIVE PERCENT (BEAKER) (test 12 % thlp=210) MONOCYTES RELATIVE PERCENT (BEAKER) (test 6 % wnen=444) EOSINOPHILS RELATIVE PERCENT (BEAKER) (test 0 % cyhf=006) BASOPHILS RELATIVE PERCENT (BEAKER) (test 0 % elyd=907) NEUTROPHILS ABSOLUTE COUNT (BEAKER) (test 12.52 K/ L 1.78-5.38 zstv=973) LYMPHOCYTES ABSOLUTE COUNT (BEAKER) (test 1.93 K/ L 1.32-3.57 uxwz=037) MONOCYTES ABSOLUTE COUNT (BEAKER) (test 0.89 K/ L 0.30-0.82 xunv=084) EOSINOPHILS ABSOLUTE COUNT (BEAKER) (test 0.07 K/ L 0.04-0.54 yoxk=627) BASOPHILS ABSOLUTE COUNT (BEAKER) (test 0.07 K/ L 0.01-0.08 cfxd=320) IMMATURE GRANULOCYTES-RELATIVE PERCENT (BEAKER) 2 % 0-1 (test xqgh=8534) [id number] 08:46:00 Test Item Value Reference Range Comments MAGNESIUM (BEAKER) (test jgtj=957) 1.6 mg/dL 1.6-2.6 COMPREHENSIVE METABOLIC [id number] 08:46:00 Test Item Value Reference Range Comments TOTAL PROTEIN (BEAKER) 6.8 gm/dL 6.0-8.3 (test ugfc=375) ALBUMIN (BEAKER) (test 3.2 g/dL 3.5-5.0 sdsh=6800) ALKALINE PHOSPHATASE 340 U/L 40-150 (BEAKER) (test fwam=295) BILIRUBIN TOTAL (BEAKER) 20.0 mg/dL 0.2-1.2 (test kxiz=020) SODIUM (BEAKER) (test 136 meq/L 136-145 mqgd=504) POTASSIUM (BEAKER) (test 3.1 meq/L 3.5-5.1 wfha=639) CHLORIDE (BEAKER) (test 100 meq/L 98-107 xumz=618) CO2 (BEAKER) (test 24 meq/L 22-29 dpld=989) BLOOD UREA NITROGEN 21 mg/dL 7-21 (BEAKER) (test uude=505) CREATININE (BEAKER) (test 0.79 mg/dL 0.57-1.25 vvnj=647) GLUCOSE RANDOM (BEAKER) 131 mg/dL 70-105 (test swkd=934) CALCIUM (BEAKER) (test 10.1 mg/dL 8.4-10.2 unsk=930) AST (SGOT) (BEAKER) (test 86 U/L 5-34 iiju=763) ALT (SGPT) (BEAKER) (test 70 U/L 6-55 oned=116) EGFR (BEAKER) (test 98 mL/min/1.73 sq m ESTIMATED GFR IS NOT pitr=4796) ACCURATE CREATININE CLEARANCE IN PREDICTING GLOMERULAR FILTRATION RATE. ESTIMATED GFR IS NOT APPLICABLE FOR DIALYSIS PATIENTS. Specimen markedly ictericPOCT-GLUCOSE [id number] 08:12:00 Test Item Value Reference Range Comments POC-GLUCOSE METER (BEAKER) 146 mg/dL 70-[address] [facility] [address] [facility] (test uuqy=1265) [facility] [address] CYTOLOGY [id number] 11:01:00 Test Item Value Reference Range Comments CYTOLOGY RESULT POINTER (BEAKER) (test See Separate Report itsh=0382) FINE NEEDLE ASPIRATE (FNA) [id number] 11:01:00 Test Item Value Reference Range Comments CYTOLOGY RESULT POINTER (BEAKER) (test See Separate Report sali=2086) CT, CHEST, WITH [id number] 07:37:00FINAL REPORT TECHNIQUE: CT of the chest, abdomen, and pelvis WITH intravenouscontrast and WITHOUT oral contrast. Dose modulation, iterative reconstruction, and/or weight- based adjustment of the mA/kV was utilized to reduce the radiation dose to as low as reasonably achievable. INDICATION: pancreatic cancer staging. COMPARISON : Cardiac PET from 08/11/2018. FINDINGS: LINES/TUBES:Left chest ICD with a lead in the [...] 0.6 cm on axial image 32. PLEURA: Thepleural spaces are clear.HEART AND MEDIASTINUM: The visualized thyroid gland is normal. No significant mediastinal, hilar, or axillary lymphadenopathy. The heart and pericardium are within normal limits. Prior CABG. HEPATOBILIARY: No focal hepatic lesions. The gallbladder is distended. Mild intrahepatic biliary ductal dilation. Mild pneumobilia due to the recent ERCP and stent placement. A plastic common bile duct stent is in place.SPLEEN: No splenomegaly.PANCREAS: A cystic lesion off the pancreaticuncinate process measures 3.8 cm on axial image 81. The known pancreatic head mass is difficult to visualize but likely measures 3.3 cm on axial image 72. This likely abuts the superior mesenteric artery and main portal vein. ADRENALS: A left adrenal nodule measures 0.7 cm on axial image 70.KIDNEYS/URETERS: A left upper pole hyperdense renal lesion measures 2.2 cm on axial image 67. Simple cyst in the left kidney measure 19.9 cm, 4.47 m, 3.2 cm, and 2.6 cm. Simple cyst in the right kidney measures 2.4 cm , 1.2 cm, 1.5 cm, and 1.4 cm. Additional bilateral renal hypodensities are too small to further characterize. PELVIC ORGANS/BLADDER: Unremarkable. PERITONEUM/ RETROPERITONEUM: No free air or fluid.LYMPH NODES: A nonspecific, mildly enlarged left periaortic lymph node measures 1.1 cm on axial image 85. The largest peripancreatic lymph node measures 0.8 cm in short axis dimension on axial image 63.VESSELS: Unremarkable. GI TRACT: No distention or wall thickening. There is contrast in the colon and distal small bowel, possibly from prior study. Mild diverticulosis the sigmoid colon. The appendix isnormal. BONES AND SOFT TISSUES: Bilateral gynecomastia. Prior median sternotomy. A sclerotic densityin the left iliac bone is subcentimeter, has a narrow zone of transition, and appears nonaggressive.This is most likely a bone island. IMPRESSION: 1.The pancreatic head mass is not well-visualized onthis single phase study. However, the likely mass in the uncinate process measures 3.3 cm. This likely abuts the superior mesenteric artery and main portal vein. A pancreas mass protocol is recommendedif vascular involvement will clinical data management manager. 2.A right lower lobe 2.2 cm pulmonary nodule is located fairly centrally and was markedly FDG avid on the prior cardiac PET. This is most likely either ametastasis or primary lung cancer. 3.A nonspecific, mildly [...] This can be further evaluated on the pancreasprotocol CT as well. 6.Rounded groundglass opacities measure up to 0.8 cm and are indeterminate. These can be followed up on future staging studies. 7.An incidental left adrenal nodule measures 0.7 cm and is probably benign. No additional imaging is necessary. 8.Moderate centrilobular emphysema. Signed: Naeem Arguello MDReport Verified Date/Time: 2018 07:37:46 Reading Location: [facility] Diagnostic Imaging Reading Room - [place] [address] [address] , [id number] 07:37:00FINAL REPORT TECHNIQUE: CT of the chest, abdomen, and pelvis WITH intravenouscontrast and WITHOUT oral contrast. Dose modulation, iterative reconstruction, and/or weight-based adjustment of the mA/kV was utilized to reduce the radiation dose to as low as reasonably achievable. INDICATION: pancreatic cancer staging. COMPARISON: Cardiac PET from 08/11/2018. FINDINGS: LINES/TUBES:Left chest ICD with a lead in the [...] 0.6 cm on axial image 32. PLEURA: Thepleural spaces are clear.HEART AND MEDIASTINUM: The visualized thyroid gland is normal. No significant mediastinal, hilar, or axillary lymphadenopathy. The heart and pericardium are within normal limits. Prior CABG. HEPATOBILIARY: No focal hepatic lesions. The gallbladder is distended. Mild intrahepatic biliary ductal dilation. Mild pneumobilia due to the recent ERCP and stent placement. A plastic common bile duct stent is in place.SPLEEN: No splenomegaly.PANCREAS: A cystic lesion off the pancreaticuncinate process measures 3.8 cm on axial image 81. The known pancreatic head mass is difficult to visualize but likely measures 3.3 cm on axial image 72. This likely abuts the superior mesenteric artery and main portal vein. ADRENALS: A left adrenal nodule measures 0.7 cm on axial image 70.KIDNEYS/URETERS: A left upper pole hyperdense renal lesion measures 2.2 cm on axial image 67. Simple cyst in the left kidney measure 19.9 cm, 4.47 m, 3.2 cm, and 2.6 cm. Simple cyst in the right kidney measures 2.4 cm , 1.2 cm, 1.5 cm, and 1.4 cm. Additional bilateral renal hypodensities are too small to further characterize. PELVIC ORGANS/BLADDER: Unremarkable. PERITONEUM/ RETROPERITONEUM: No free air or fluid.LYMPH NODES: A nonspecific, mildly enlarged left periaortic lymph node measures 1.1 cm on axial image 85. The largest peripancreatic lymph node measures 0.8 cm in short axis dimension on axial image 63.VESSELS: Unremarkable. GI TRACT: No distention or wall thickening. There is contrast in the colon and distal small bowel, possibly from prior study. Mild diverticulosis the sigmoid colon. The appendix isnormal. BONES AND SOFT TISSUES: Bilateral gynecomastia. Prior median sternotomy. A sclerotic densityin the left iliac bone is subcentimeter, has a narrow zone of transition, and appears nonaggressive.This is most likely a bone island. IMPRESSION: 1.The pancreatic head mass is not well-visualized onthis single phase study. However, the likely mass in the uncinate process measures 3.3 cm. This likely abuts the superior mesenteric artery and main portal vein. A pancreas mass protocol is recommendedif vascular involvement will clinical data management manager. 2.A right lower lobe 2.2 cm pulmonary nodule is located fairly centrally and was markedly FDG avid on the prior cardiac PET. This is most likely either ametastasis or primary lung cancer. 3.A nonspecific, mildly [...] This can be further evaluated on the pancreasprotocol CT as well. 6.Rounded groundglass opacities measure up to 0.8 cm and are indeterminate. These can be followed up on future staging studies. 7.An incidental left adrenal nodule measures 0.7 cm and is probably benign. No additional imaging is necessary. 8.Moderate centrilobular emphysema. Signed: Naeem Arguello MDRepreynolds [facility] Verified Date/Time: 2018 07:37:46 Reading Location: [facility] Diagnostic Imaging Reading Room - [place] [address] COMPREHENSIVE METABOLIC [id number] 06:19:00 Test Item Value Reference Range Comments TOTAL PROTEIN (BEAKER) 6.7 gm/dL 6.0-8.3 (test lxiz=948) ALBUMIN (BEAKER) (test 3.2 g/dL 3.5-5.0 ceqa=9921) ALKALINE PHOSPHATASE 336 U/L 40-150 (BEAKER) (test wlwm=485) BILIRUBIN TOTAL (BEAKER) 23.0 mg/dL 0.2-1.2 (test cmul=490) SODIUM (BEAKER) (test 133 meq/L 136-145 ecvj=738) POTASSIUM (BEAKER) (test 3.2 meq/L 3.5-5.1 ajlu=546) CHLORIDE (BEAKER) (test 95 meq/L 98-107 tmgf=809) CO2 (BEAKER) (test 26 meq/L 22-29 awzb=495) BLOOD UREA NITROGEN 34 mg/dL 7-21 (BEAKER) (test ocza=019) CREATININE (BEAKER) (test 1.36 mg/dL 0.57-1.25 wgln=873) GLUCOSE RANDOM (BEAKER) 153 mg/dL 70-105 (test xpeb=254) CALCIUM (BEAKER) (test 9.8 mg/dL 8.4-10.2 jrbq=192) AST (SGOT) (BEAKER) (test 64 U/L 5-34 xszh=834) ALT (SGPT) (BEAKER) (test 58 U/L 6-55 rcey=276) EGFR (BEAKER) (test 53 mL/min/1.73 sq m ESTIMATED GFR IS NOT hkuw=8229) ACCURATE CREATININE CLEARANCE IN PREDICTING GLOMERULAR FILTRATION RATE. ESTIMATED GFR IS NOT APPLICABLE FOR DIALYSIS PATIENTS. Specimen markedly [id number] 06:18:00 Test Item Value Reference Range Comments MAGNESIUM (BEAKER) (test qfye=279) 1.9 mg/dL 1.6-2.6 CBC (HEMOGRAM ONLY)2018-08-13 05:50:00 Test Item Value Reference Range Comments WHITE BLOOD CELL COUNT (BEAKER) (test rpal=008) 10.9 K/ L 3.5-10.5 RED BLOOD CELL COUNT (BEAKER) (test yiuq=006) 4.90 M/ L 4.63-6.08 HEMOGLOBIN (BEAKER) (test kten=382) 13.3 GM/DL 13.7-17.5 HEMATOCRIT (BEAKER) (test pdbu=813) 38.7 % 40.1-51.0 MEAN CORPUSCULAR VOLUME (BEAKER) (test wfpq=571) 79.0 fL 79.0-92.2 MEAN CORPUSCULAR HEMOGLOBIN (BEAKER) (test 27.1 pg 25.7-32.2 dtvu=896) MEAN CORPUSCULAR HEMOGLOBIN CONC (BEAKER) (test 34.4 GM/DL 32.3-36.5 aeet=207) RED CELL DISTRIBUTION WIDTH (BEAKER) (test 20.0 % 11.6-14.4 ztjz=472) PLATELET COUNT (BEAKER) (test ucco=587) 196 K/CU MM 150-450 MEAN PLATELET VOLUME (BEAKER) (test uynp=016) 12.3 fL 9.4-12.4 NUCLEATED RED BLOOD CELLS (BEAKER) (test 0 /100 WBC 0-0 hfvd=512) FL, [id number] 20:36:00INTRA OP IMAGINGReason for exam:->biliary obstructionFINAL REPORT ERCP 8 views 08/12/2018 8:33 PM CLINICAL HISTORY: Instrument localization COMPARISON: None available IMPRESSION : Please correlate imaging report findings with the procedure note prepared by Dr. Silver, as an intra-procedure imaging consultation was not requested. Reported fluoroscopy time: 54.0 seconds. Signed: Shay Mc Verified Date/Time: 08/12/2018 20:36:21 Reading Location: [facility] Radiology Reading Room Electronically signed by: SHAY MC M.D. on 08:36 [id number] 14:58:00 Test Item Value Reference Range Comments MAGNESIUM (BEAKER) (test 1.9 mg/dL 1.6-2.6 Specimen slightly hemolyzed ewar=492) BASIC METABOLIC [id number] 14:58:00 Test Item Value Reference Range Comments SODIUM (BEAKER) (test 132 meq/L 136-145 huaq=400) POTASSIUM (BEAKER) (test 4.1 meq/L 3.5-5.1 Specimen slightly ivek=636) hemolyzed CHLORIDE (BEAKER) (test 97 meq/L 98-107 pvvs=058) CO2 (BEAKER) (test 24 meq/L 22-29 ahjf=474) BLOOD UREA NITROGEN 27 mg/dL 7-21 (BEAKER) (test pabk=707) CREATININE (BEAKER) (test 0.73 mg/dL 0.57-1.25 Specimen slightly fbjv=128) hemolyzed GLUCOSE RANDOM (BEAKER) 110 mg/dL 70-105 (test tezn=614) CALCIUM (BEAKER) (test 9.9 mg/dL 8.4-10.2 fjkw=628) EGFR (BEAKER) (test 108 mL/min/1.73 sq m ESTIMATED GFR IS NOT mwav=7181) ACCURATE CREATININE CLEARANCE IN PREDICTING GLOMERULAR FILTRATION RATE. ESTIMATED GFR IS NOT APPLICABLE FOR DIALYSIS PATIENTS. Specimen markedly ictericCOMPREHENSIVE METABOLIC [id number] 07:11:00 Test Item Value Reference Range Comments TOTAL PROTEIN (BEAKER) 6.2 gm/dL 6.0-8.3 (test bgta=722) ALBUMIN (BEAKER) (test 3.0 g/dL 3.5-5.0 nwme=5847) ALKALINE PHOSPHATASE 313 U/L 40-150 (BEAKER) (test wusc=578) BILIRUBIN TOTAL (BEAKER) 22.6 mg/dL 0.2-1.2 (test wfnx=100) SODIUM (BEAKER) (test 135 meq/L 136-145 cbrh=923) POTASSIUM (BEAKER) (test 2.4 meq/L 3.5-5.1 pjgi=440) CHLORIDE (BEAKER) (test 96 meq/L 98-107 kgol=871) CO2 (BEAKER) (test 28 meq/L 22-29 lpxv=575) BLOOD UREA NITROGEN 33 mg/dL 7-21 (BEAKER) (test vqji=049) CREATININE (BEAKER) (test 0.93 mg/dL 0.57-1.25 sdid=661) GLUCOSE RANDOM (BEAKER) 120 mg/dL 70-105 (test xixx=634) CALCIUM (BEAKER) (test 10.1 mg/dL 8.4-10.2 knmh=925) AST (SGOT) (BEAKER) (test 64 U/L 5-34 mdix=496) ALT (SGPT) (BEAKER) (test 59 U/L 6-55 vbqy=661) EGFR (BEAKER) (test 82 mL/min/1.73 sq m ESTIMATED GFR IS NOT ljrb=6649) ACCURATE CREATININE CLEARANCE IN PREDICTING GLOMERULAR FILTRATION RATE. ESTIMATED GFR IS NOT APPLICABLE FOR DIALYSIS PATIENTS. Specimen markedly [id number] 07:02:00 Test Item Value Reference Range Comments MAGNESIUM (BEAKER) (test xuwg=858) 1.5 mg/dL 1.6-2.6 CBC (HEMOGRAM ONLY)2018-08-12 06:46:00 Test Item Value Reference Range Comments WHITE BLOOD CELL COUNT (BEAKER) (test wqar=082) 11.2 K/ L 3.5-10.5 RED BLOOD CELL COUNT (BEAKER) (test rkjt=108) 4.81 M/ L 4.63-6.08 HEMOGLOBIN (BEAKER) (test jeod=280) 13.1 GM/DL 13.7-17.5 HEMATOCRIT (BEAKER) (test fzkl=592) 37.1 % 40.1-51.0 MEAN CORPUSCULAR VOLUME (BEAKER) (test ycnv=866) 77.1 fL 79.0-92.2 MEAN CORPUSCULAR HEMOGLOBIN (BEAKER) (test 27.2 pg 25.7-32.2 xnfb=566) MEAN CORPUSCULAR HEMOGLOBIN CONC (BEAKER) (test 35.3 GM/DL 32.3-36.5 eqof=664) RED CELL DISTRIBUTION WIDTH (BEAKER) (test 19.3 % 11.6-14.4 xjoz=747) PLATELET COUNT (BEAKER) (test tqag=024) 179 K/CU MM 150-450 MEAN PLATELET VOLUME (BEAKER) (test bkoi=721) 12.2 fL 9.4-12.4 NUCLEATED RED BLOOD CELLS (BEAKER) (test 0 /100 WBC 0-0 xsgl=167) OSMOLALITY, [id number] 20:20:00 Test Item Value Reference Range Comments OSMOLALITY URINE (BEAKER) (test nslp=178) 468 mOsm/kg 40-1,400 SODIUM, RANDOM [id number] 20:11:00 Test Item Value Reference Range Comments SODIUM URINE (BEAKER) (test dxmg=415) 38 meq/L Reference Range: No NormalsPET, CARDIAC PERFUSION MULTIPLE STUDIES, REST AND [id number] 13:51:00Reason for exam:->CADFINAL REPORT PROCEDURE: Rest/Stress MYOCARDIAL PERFUSION PET with regadenoson\\ XA9\\ CPT CODE: 42387 INDICATION: Defined extent/severity of known CAD HISTORY: Cardiac risk factors: Obstructive sleep apnea. Other cardiovascular history: No CAD with priorACB, congestive heart failure, status post ICD. Recent cardiac symptoms: None. PROTOCOL: Limited low-dose CT imaging was performed for attenuation correction. 40.0 mCi of Rb-82 chloride was injected iv at rest, and gated PET (positron emission tomography) images were obtained. Subsequently, 40.0mCi of Rb-82 chloride was injected iv at [...] BP was 80/53 mmHg at rest and 78/ 50 mmHg at tracer injection. Stress was stopped for predetermined endpoint.The patient experienced shortness of breath; treatment was [...] of the LV. Resting images show similar radiotraceruptake. LV volume appears increased. RV volume appears normal. Gated images obtained immediately after stress show akinetic mid anterior, anteroapical, and apical LV wall motion with normal wall motionof the other segments. Gated images obtained at [...] distribution is normal. 6. Compared to previous [facility] SPECT study on 03/30/2001, the anterior and anteroapical perfusion defect is unchanged. NONINVASIVE RISK STRATIFICATION: The above findings are considered high risk (>3% annual or ND) based on the following criteria: - Resting perfusion abnormalities >10% of the myocardium in patients without prior history or evidence of ND(JACC. 2017;69(17) :2212-66.) Signed: [facility] MDRep[facility] Verified Date/Time: 08/11/2018 13:51: 01 Reading Location: [address] Reading Room COMPREHENSIVE METABOLIC [id number] 04:48:00 Test Item Value Reference Range Comments TOTAL PROTEIN (BEAKER) 6.7 gm/dL 6.0-8.3 Specimen moderately (test sbnm=562) hemolyzed ALBUMIN (BEAKER) (test 3.0 g/dL 3.5-5.0 Specimen moderately qppz=2222) hemolyzed ALKALINE PHOSPHATASE 313 U/L 40-150 (BEAKER) (test lwqc=653) BILIRUBIN TOTAL (BEAKER) 22.9 mg/dL 0.2-1.2 Specimen moderately (test ucgj=877) hemolyzed SODIUM (BEAKER) (test 129 meq/L 136-145 tviy=678) POTASSIUM (BEAKER) (test 3.4 meq/L 3.5-5.1 Specimen moderately tlby=213) hemolyzed CHLORIDE (BEAKER) (test 93 meq/L 98-107 ppah=296) CO2 (BEAKER) (test 23 meq/L 22-29 ktwt=248) BLOOD UREA NITROGEN 49 mg/dL 7-21 (BEAKER) (test lipa=310) CREATININE (BEAKER) (test 1.28 mg/dL 0.57-1.25 Specimen moderately ovxb=323) hemolyzed GLUCOSE RANDOM (BEAKER) 117 mg/dL 70-105 (test nmud=905) CALCIUM (BEAKER) (test 10.7 mg/dL 8.4-10.2 sphf=543) AST (SGOT) (BEAKER) (test 71 U/L 5-34 Specimen moderately qjiw=750) hemolyzed ALT (SGPT) (BEAKER) (test 63 U/L 6-55 Specimen moderately uzrc=441) hemolyzed EGFR (BEAKER) (test 56 mL/min/1.73 sq m ESTIMATED GFR IS NOT zkzh=1442) ACCURATE CREATININE CLEARANCE IN PREDICTING GLOMERULAR FILTRATION RATE. ESTIMATED GFR IS NOT APPLICABLE FOR DIALYSIS PATIENTS. Specimen markedly ictericB-TYPE NATRIURETIC FACTOR (BNP)2018-08-11 04:46:00 Test Item Value Reference Range Comments B-TYPE NATRIURETIC PEPTIDE (BEAKER) (test kagn=791) 42 pg/mL 0-100 [id number] 04:46:00 Test Item Value Reference Range Comments MAGNESIUM (BEAKER) (test 1.7 mg/dL 1.6-2.6 Specimen moderately hemolyzed uagd=741) [id number] 04:46:00 Test Item Value Reference Range Comments PHOSPHORUS (BEAKER) (test 4.3 mg/dL 2.3-4.7 Specimen moderately hemolyzed rzin=550) CBC W/PLT COUNT & AUTO [id number] 04:29:00 Test Item Value Reference Range Comments WHITE BLOOD CELL COUNT (BEAKER) (test duvz=421) 10.9 K/ L 3.5-10.5 RED BLOOD CELL COUNT (BEAKER) (test xmnr=803) 5.15 M/ L 4.63-6.08 HEMOGLOBIN (BEAKER) (test cmvq=631) 14.1 GM/DL 13.7-17.5 HEMATOCRIT (BEAKER) (test dqqp=808) 41.8 % 40.1-51.0 MEAN CORPUSCULAR VOLUME (BEAKER) (test mvvw=076) 81.2 fL 79.0-92.2 MEAN CORPUSCULAR HEMOGLOBIN (BEAKER) (test 27.4 pg 25.7-32.2 ajoo=540) MEAN CORPUSCULAR HEMOGLOBIN CONC (BEAKER) (test 33.7 GM/DL 32.3-36.5 zwqh=798) RED CELL DISTRIBUTION WIDTH (BEAKER) (test 20.5 % 11.6-14.4 cwsv=516) PLATELET COUNT (BEAKER) (test cvxq=307) 169 K/CU MM 150-450 MEAN PLATELET VOLUME (BEAKER) (test yelh=417) 12.1 fL 9.4-12.4 NUCLEATED RED BLOOD CELLS (BEAKER) (test 0 /100 WBC 0-0 psxp=846) NEUTROPHILS RELATIVE PERCENT (BEAKER) (test 71 % qruz=808) LYMPHOCYTES RELATIVE PERCENT (BEAKER) (test 17 % yfel=764) MONOCYTES RELATIVE PERCENT (BEAKER) (test 7 % xvlu=773) EOSINOPHILS RELATIVE PERCENT (BEAKER) (test 1 % pivu=525) BASOPHILS RELATIVE PERCENT (BEAKER) (test 1 % pthm=282) NEUTROPHILS ABSOLUTE COUNT (BEAKER) (test 7.74 K/ L 1.78-5.38 jbsm=062) LYMPHOCYTES ABSOLUTE COUNT (BEAKER) (test 1.89 K/ L 1.32-3.57 ixuj=798) MONOCYTES ABSOLUTE COUNT (BEAKER) (test 0.71 K/ L 0.30-0.82 eyki=335) EOSINOPHILS ABSOLUTE COUNT (BEAKER) (test 0.15 K/ L 0.04-0.54 pqvx=943) BASOPHILS ABSOLUTE COUNT (BEAKER) (test 0.12 K/ L 0.01-0.08 cdww=719) IMMATURE GRANULOCYTES-RELATIVE PERCENT (BEAKER) 2 % 0-1 (test wvms=7234) COMPREHENSIVE METABOLIC [id number] 16:13:00 Test Item Value Reference Range Comments TOTAL PROTEIN (BEAKER) 7.3 gm/dL 6.0-8.3 Specimen slightly (test qzqk=712) hemolyzed ALBUMIN (BEAKER) (test 3.4 g/dL 3.5-5.0 Specimen slightly almc=9659) hemolyzed ALKALINE PHOSPHATASE 344 U/L 40-150 (BEAKER) (test pnlc=257) BILIRUBIN TOTAL (BEAKER) 24.7 mg/dL 0.2-1.2 Specimen slightly (test yhbv=787) hemolyzed SODIUM (BEAKER) (test 129 meq/L 136-145 yebu=559) POTASSIUM (BEAKER) (test 3.6 meq/L 3.5-5.1 Specimen slightly nlnr=909) hemolyzed CHLORIDE (BEAKER) (test 88 meq/L 98-107 srkz=258) CO2 (BEAKER) (test 26 meq/L 22-29 vrpd=075) BLOOD UREA NITROGEN 45 mg/dL 7-21 (BEAKER) (test dtic=712) CREATININE (BEAKER) (test 1.54 mg/dL 0.57-1.25 Specimen slightly qgob=506) hemolyzed GLUCOSE RANDOM (BEAKER) 120 mg/dL 70-105 (test nuqk=304) CALCIUM (BEAKER) (test 11.4 mg/dL 8.4-10.2 ujzv=536) AST (SGOT) (BEAKER) (test 68 U/L 5-34 Specimen slightly rnqv=014) hemolyzed ALT (SGPT) (BEAKER) (test 67 U/L 6-55 Specimen slightly bxvc=417) hemolyzed EGFR (BEAKER) (test 46 mL/min/1.73 sq m ESTIMATED GFR IS NOT mrhz=8845) ACCURATE CREATININE CLEARANCE IN PREDICTING GLOMERULAR FILTRATION RATE. ESTIMATED GFR IS NOT APPLICABLE FOR DIALYSIS PATIENTS. Specimen markedly [id number] 16:12:00 Test Item Value Reference Range Comments MAGNESIUM (BEAKER) (test 1.3 mg/dL 1.6-2.6 Specimen slightly hemolyzed gmwj=580) [id number] 16:12:00 Test Item Value Reference Range Comments PHOSPHORUS (BEAKER) (test 4.8 mg/dL 2.3-4.7 Specimen slightly hemolyzed wtkz=142) PROTHROMBIN [id number] 15:53:00 Test Item Value Reference Range Comments PROTIME (BEAKER) (test luca=979) 14.1 seconds 11.7-14.7 INR (BEAKER) (test jykr=821) 1.1 <=5.9 RECOMMENDED COUMADIN/WARFARIN INR THERAPY RANGESSTANDARD DOSE: 2.0 - 3.0 Includes: PROPHYLAXIS forvenous thrombosis, systemic embolization; TREATMENT for venous thrombosis and/or pulmonary embolus.HIGH RISK: Target INR is 2.5-3.5 for patients with mechanical heart valves.CBC W/PLT COUNT & AUTO [id number] 15:43:00 Test Item Value Reference Range Comments WHITE BLOOD CELL COUNT (BEAKER) (test rhpx=996) 13.7 K/ L 3.5-10.5 RED BLOOD CELL COUNT (BEAKER) (test wnuv=967) 5.34 M/ L 4.63-6.08 HEMOGLOBIN (BEAKER) (test ufhw=942) 14.7 GM/DL 13.7-17.5 HEMATOCRIT (BEAKER) (test zulp=007) 41.8 % 40.1-51.0 MEAN CORPUSCULAR VOLUME (BEAKER) (test yulv=161) 78.3 fL 79.0-92.2 MEAN CORPUSCULAR HEMOGLOBIN (BEAKER) (test 27.5 pg 25.7-32.2 exnm=273) MEAN CORPUSCULAR HEMOGLOBIN CONC (BEAKER) (test 35.2 GM/DL 32.3-36.5 izpm=177) RED CELL DISTRIBUTION WIDTH (BEAKER) (test 20.0 % 11.6-14.4 enzd=455) PLATELET COUNT (BEAKER) (test tbcw=233) 208 K/CU MM 150-450 MEAN PLATELET VOLUME (BEAKER) (test wzdt=969) 12.0 fL 9.4-12.4 NUCLEATED RED BLOOD CELLS (BEAKER) (test 0 /100 WBC 0-0 toll=727) NEUTROPHILS RELATIVE PERCENT (BEAKER) (test 75 % wrdf=392) LYMPHOCYTES RELATIVE PERCENT (BEAKER) (test 15 % ckus=218) MONOCYTES RELATIVE PERCENT (BEAKER) (test 7 % xssx=686) EOSINOPHILS RELATIVE PERCENT (BEAKER) (test 1 % waos=377) BASOPHILS RELATIVE PERCENT (BEAKER) (test 1 % ecks=571) NEUTROPHILS ABSOLUTE COUNT (BEAKER) (test 10.21 K/ L 1.78-5.38 rtwb=831) LYMPHOCYTES ABSOLUTE COUNT (BEAKER) (test 1.99 K/ L 1.32-3.57 bmtb=302) MONOCYTES ABSOLUTE COUNT (BEAKER) (test 0.91 K/ L 0.30-0.82 lhei=996) EOSINOPHILS ABSOLUTE COUNT (BEAKER) (test 0.16 K/ L 0.04-0.54 yxyt=332) BASOPHILS ABSOLUTE COUNT (BEAKER) (test 0.10 K/ L 0.01-0.08 uxvj=294) IMMATURE GRANULOCYTES-RELATIVE PERCENT (BEAKER) 3 % 0-1 (test rrvs=2591) PROTHROMBIN [id number] 06:41:00 Test Item Value Reference Range Comments PROTIME (BEAKER) (test sacx=453) 14.0 seconds 11.7-14.7 INR (BEAKER) (test qtgc=621) 1.1 <=5.9 RECOMMENDED COUMADIN/WARFARIN INR THERAPY RANGESSTANDARD DOSE: 2.0 - 3.0 Includes: PROPHYLAXIS forvenous thrombosis, systemic embolization; TREATMENT for venous thrombosis and/or pulmonary embolus.HIGH RISK: Target INR is 2.5-3.5 for patients with mechanical heart valves.Within 24 hours, if on [id number] 06:33:00 Test Item Value Reference Range Comments MAGNESIUM (BEAKER) (test lokm=461) 1.3 mg/dL 1.6-2.6 BASIC METABOLIC [id number] 06:33:00 Test Item Value Reference Range Comments SODIUM (BEAKER) (test 135 meq/L 136-145 rker=477) POTASSIUM (BEAKER) (test 3.2 meq/L 3.5-5.1 pixy=579) CHLORIDE (BEAKER) (test 89 meq/L 98-107 hsjw=516) CO2 (BEAKER) (test 33 meq/L 22-29 gknx=099) BLOOD UREA NITROGEN 27 mg/dL 7-21 (BEAKER) (test vtfd=803) CREATININE (BEAKER) (test 1.19 mg/dL 0.57-1.25 xusq=321) GLUCOSE RANDOM (BEAKER) 171 mg/dL 70-105 (test bpkz=289) CALCIUM (BEAKER) (test 10.7 mg/dL 8.4-10.2 zuts=472) EGFR (BEAKER) (test 61 mL/min/1.73 sq m ESTIMATED GFR IS NOT seka=7162) ACCURATE CREATININE CLEARANCE IN PREDICTING GLOMERULAR FILTRATION RATE. ESTIMATED GFR IS NOT APPLICABLE FOR DIALYSIS PATIENTS. Specimen markedly ictericCBC (HEMOGRAM ONLY)2018-08-02 06:21:00 Test Item Value Reference Range Comments WHITE BLOOD CELL COUNT (BEAKER) (test fplo=001) 12.6 K/ L 3.5-10.5 RED BLOOD CELL COUNT (BEAKER) (test vpof=690) 5.62 M/ L 4.63-6.08 HEMOGLOBIN (BEAKER) (test qilk=744) 15.2 GM/DL 13.7-17.5 HEMATOCRIT (BEAKER) (test itsl=630) 44.8 % 40.1-51.0 MEAN CORPUSCULAR VOLUME (BEAKER) (test qahb=697) 79.7 fL 79.0-92.2 MEAN CORPUSCULAR HEMOGLOBIN (BEAKER) (test 27.0 pg 25.7-32.2 bjny=344) MEAN CORPUSCULAR HEMOGLOBIN CONC (BEAKER) (test 33.9 GM/DL 32.3-36.5 rzyu=495) RED CELL DISTRIBUTION WIDTH (BEAKER) (test 18.4 % 11.6-14.4 inaa=920) PLATELET COUNT (BEAKER) (test tstm=745) 238 K/CU MM 150-450 MEAN PLATELET VOLUME (BEAKER) (test wohs=055) 11.8 fL 9.4-12.4 NUCLEATED RED BLOOD CELLS (BEAKER) (test 0 /100 WBC 0-0 pvci=065)
[2018-10-21 18:55] LABS: Absolute Lymphocytes (CBC) 0.7 K/uL (0.7-4.9); Absolute Monocytes 0.2 K/uL (0.1-1.3); Absolute Neutrophil 7.1 K/uL (1.8-8.0); Basophils % 0.4 % (0-1.3); Eosinophils % 0.1 % (0-4.4); Hematocrit 43.8 % (39.6-49.0); Lymphocytes % 9.2 % (15.3-44.8); MPV 8.8 fL (7.6-11.3); Monocytes % 2.7 % (3.3-12.3); RBC Red Blood Cell Count 5.28 M/uL (4.33-5.43)
--- NOTE | 2018-10-21 18:55 | RAD REPORT ---
EXAM DESCRIPTION: RAD - Chest Single View - 10/21/2018 6:49 pm CLINICAL HISTORY: FEVER Chest pain. COMPARISON: No comparisons FINDINGS: Portable technique limits examination quality. Haziness is seen in the medial right lung base which could be a small heart rate/developing pneumonia . 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 Single lead pacer/defibrillator device present. No displaced fractures.
[2018-10-21 18:57] LABS: Protime INR 1.17
[2018-10-21] MEDS ORDERED: FENTANYL CITR 100 MCG/2 ML ONE (18:57)
[2018-10-21] MEDS ORDERED: NA CHLORIDE 0.9% 1,000 ML ONE (18:59)
[2018-10-21 19:09] LABS: ALT/SGPT 25 U/L (12-78); AST/SGOT 20 U/L (15-37); Albumin 3.4 g/dL (3.4-5.0); Alkaline Phosphatase 82 U/L (45-117); BUN Blood Urea Nitrogen 19 mg/dL (7-18); Bicarbonate 27 mmol/L (21-32); Bilirubin Direct 0.2 mg/dL (0-0.2); Bilirubin Total 0.5 mg/dL (0.2-1.0); CKMB Creatine Kinase MB < 1.0 ng/mL (0.3-3.6); Creatine Phosphokinase 33 U/L (39-308); Glucose Level 133 mg/dL (74-106); Lipase 91 U/L (73-393); Potassium 3.1 mmol/L (3.5-5.1); Sodium Level 136 mmol/L (136-145); Troponin (Emerg Dept Use Only) < 0.02 ng/mL (0.0-0.045)
[2018-10-21 19:17] LABS: Platelet Estimate ADEQ; Urine White Blood Cell Casts OK
[2018-10-21 19:18] LABS: Blood Morphology Comment NOT SEEN (NOT SEEN)
[2018-10-21] MEDS ORDERED: ACETAMINOPHEN 325 MG TABLET ONE (19:23)
[2018-10-21] MEDS ORDERED: NA CHLORIDE 0.9% 250 ML ONE (19:42)
[2018-10-21] MEDS ORDERED: AZITHROMYCIN 500 MG INJ IVPB ONE (19:42)
[2018-10-21] MEDS ORDERED: CEFTRIAXONE/SWI 1gm 1 GM/10 ML SYR ONE (19:42)
[2018-10-21] MEDS ORDERED: METOPROLOL TARTRATE 5 MG/5 ML INJ IV ONE ×2 (19:42→20:22)
[2018-10-21] MEDS ORDERED: METHYLPREDNISOLONE 125 MG INJ ONE (20:18)
[2018-10-21] MEDS ORDERED: POTASSIUM CL SA 10 MEQ TAB PO ONE (20:19)
[2018-10-21] MEDS ORDERED: Magnesium Sulfate 2gm IVPB 2 G/50 ML BAG IV ONE (20:54)
[2018-10-21 21:29] LABS: Urine Blood TRACE (NEG); Urine Glucose NEGATIVE (NEG); Urine Protein 1+ (NEG); Urine Specific Gravity 1.015 (1.005-1.030)
--- NOTE | 2018-10-21 21:43 | ER ---
Nurse's Notes [facility] Name: Jaime Booth Age: 67 yrs Sex: Male : 1950 Arrival Date: 10/21/2018 Time: 18:09 Bed 7 Private MD: Diagnosis: Hypomagnesemia;Hypokalemia;Dehydration Presentation: 10/21 18:09 Presenting complaint: Patient states: First round of chemo treatment yesterday, sg developed fever and chills this morning, worsening today, contacted provider and instructed to come to the ER for evaluation. Transition of care: patient was not received from another setting of care. Onset of symptoms was October 21, 2018. Risk Assessment: Do you want to hurt yourself or someone else? Patient reports no desire to harm self or others. Initial Sepsis Screen: Does the patient meet any 2 criteria? RR > 20 per min. HR > 90 bpm. Yes Does the patient have a suspected source of infection? No. Patient's initial sepsis screen is negative. Care prior to arrival: None. 18:09 Method Of Arrival: Ambulatory 18:09 Acuity: YUNG 3 sg Triage Assessment: 18:30 General: Appears in no apparent distress. uncomfortable, obese, Behavior is bp cooperative, appropriate for age, anxious. Pain: Complains of pain in back. EENT: No deficits noted. Neuro: Level of Consciousness is awake, alert, obeys commands, Oriented to person, place, time, situation, Appropriate for age. Cardiovascular: No deficits noted. Respiratory: Airway is patent Respiratory effort is even, unlabored, Respiratory pattern is regular, symmetrical. GI: No signs and/or symptoms were reported involving the gastrointestinal system. : No signs and/or symptoms were reported regarding the genitourinary system. Derm: No deficits noted. Musculoskeletal: Circulation, motion, and sensation intact. Historical: - Allergies: 18:15 No Known Allergies; sg - PMHx: 18:15 Cancer; Hypertension; sg - Immunization history:: Adult Immunizations up to date. - Social history:: Smoking status: Patient/guardian denies using tobacco. - Ebola Screening: : Patient negative for fever greater than or equal to 101.5 degrees Fahrenheit, and additional compatible Ebola Virus Disease symptoms Patient denies exposure to infectious person Patient denies travel to an Ebola-affected area in the 21 days before illness onset No symptoms or risks identified at this time. Screenin:30 Abuse screen: Denies threats or abuse. Denies injuries from another. Nutritional bp screening: No deficits noted. Tuberculosis screening: No symptoms or risk factors identified. Fall Risk None identified. Assessment: 18:30 General: SEE TRIAGE NOTE. bp 19:05 General: Appears in no apparent distress. Behavior is calm, cooperative, appropriate ea for age. Pain: Denies pain. Neuro: Level of Consciousness is awake, alert, obeys commands, Oriented to person, place, time, situation. Cardiovascular: Patient's skin is warm and dry. Respiratory: Airway is patent Respiratory effort is even, unlabored, Respiratory pattern is regular, tachypnea. GI: Abdomen is obese. Derm: Skin is dry, Skin is pale, Skin temperature is warm. 20:30 Reassessment: No changes from previously documented assessment. Patient and/or family ea updated on plan of care and expected duration. Pain level reassessed. 21:18 Reassessment: Patient and/or family updated on plan of care and expected duration. Pain ea level reassessed. Pt alert and oriented x 4. Respirations are tachypneic but have improved. Pt reports he feels better. Daughter remains at bedside. 22:11 Reassessment: Patient and/or family updated on plan of care and expected duration. Pain ea level reassessed. Patient is alert, oriented x 3, equal unlabored respirations, skin warm/dry/pink. Discharge instructions given to patient, verbalized the understanding of instruction. Vital Signs: 18:13 BP 152 / 88; Pulse 112; Resp 19 S; Temp 98.7(O); Pulse Ox 96% on R/A; Weight 141.07 kg; bp Height 6 ft. 2 in. (187.96 cm); 19:06 BP 125 / 81; Pulse 98; Resp 31; Pulse Ox 95% ; bp 19:15 BP 114 / 85; Pulse 132; Resp 26; Pulse Ox 95% on R/A; ea 19:30 BP 118 / 86; Pulse 135; Resp 28; Pulse Ox 95% on R/A; ea 19:36 BP 129 / 78; Pulse 131; Resp 29; Pulse Ox 98% on 2 lpm NC; ea 19:45 BP 120 / 59; Pulse 128; Resp 25; Pulse Ox 97% on 2 lpm NC; ea 20:00 BP 111 / 53; Pulse 89; Resp 30; Pulse Ox 96% on 2 lpm NC; ea 20:17 BP 102 / 75; Pulse 89; Resp 28; Pulse Ox 97% on 2 lpm NC; ea 21:00 BP 102 / 64; Pulse 91; Resp 23; Pulse Ox 100% on 2 lpm NC; ea 22:13 BP 100 / 70; Pulse 88; Resp 21; Temp 98.2; Pulse Ox 96% on R/A; ea 18:13 Body Mass Index 39.93 (141.07 kg, 187.96 cm) bp 19:30 pt placed on 2 L of O2 ea ED Course: 18:09 Patient arrived in ED. sg 18:10 Vern Gan PA is PHCP. jr8 18:10 Lucio Sesay MD is Attending Physician. jr8 18:10 Triage completed. sg 18:14 Syed Alfred, RN is Primary Nurse. bp 18:14 Arm band placed on. sg 18:30 Patient has correct armband on for positive identification. Bed in low position. Call bp light in reach. Side rails up X2. 18:35 Inserted saline lock: 20 gauge in right wrist, using aseptic technique. Blood collected.bp 18:49 Chest Single View XRAY In Process Unspecified. EDMS 22:12 No provider procedures requiring assistance completed. IV discontinued, intact, ea bleeding controlled, No redness/swelling at site. Pressure dressing applied. Administered Medications: 18:38 CANCELLED (Physician Discretion): NS 0.9% (30 ml/kg) 30 ml/kg IV at bolus once; Sepsis [facility] Protocol 18:45 Drug: NS 0.9% 1000 ml Route: IV; Rate: 1000 ml; Site: right wrist; bp 21:00 Follow up: Response: No adverse reaction; IV Status: Completed infusion; IV Intake: ea 1000ml 18:45 Drug: fentaNYL (PF) 50 mcg Route: IVP; Site: right wrist; bp 19:15 Follow up: Response: No adverse reaction; Pain is decreased ea 19:16 Drug: Tylenol 650 mg Route: PO; ea 20:18 Follow up: Response: No adverse reaction ea 19:30 Drug: Metoprolol 5 mg Route: IVP; Site: right forearm; ea 19:45 Follow up: Response: No adverse reaction; Marked relief of symptoms ea 19:48 Drug: Rocephin 1 grams Route: IV; Rate: calculated rate; Site: right forearm; ea 20:00 Follow up: Response: No adverse reaction; IV Status: Completed infusion; IV Intake: 10mlea 19:56 Drug: Zithromax 500 mg Route: IVPB; Infused Over: 1 hrs; Site: right wrist; ea 21:00 Follow up: Response: No adverse reaction; IV Status: Completed infusion; IV Intake: ea 250ml 20:18 Drug: Potassium Chloride 40 mEq Route: PO; ea 20:36 Follow up: Response: No adverse reaction ea 20:18 Drug: SOLU-Medrol 125 mg Route: IVP; Site: right forearm; ea 20:36 Follow up: Response: No adverse reaction ea 21:04 Drug: Magnesium Sulfate 2 grams Route: IVPB; Infused Over: 2 hrs; Site: right forearm; ea 22:00 Follow up: Response: No adverse reaction; IV Status: Completed infusion ea Intake: 20:00 IV: 10ml; Total: 10ml. ea 21:00 IV: 1000ml; Total: 1010ml. ea 21:00 IV: 250ml; Total: 1260ml. ea Outcome: 21:42 Discharge ordered by MD. randolph 22:12 Discharged to home via wheelchair, with family. ea 22:12 Condition: improved 22:12 Discharge instructions given to patient, Instructed on discharge instructions, follow up and referral plans. Demonstrated understanding of instructions, follow-up care. 22:18 Patient left the ED. ea Signatures: Dispatcher [employer] EDMS Donavan Harper RN RN sg Roszak, Josh, PA PA jr8 Antunez, Elena, RN RN ea Peltier, Brian RN RN bp Corrections: (The following items were deleted from the chart) 19:07 18:13 BP 152 / 88; Pulse 112bpm; Resp 19bpm; Spontaneous; Pulse Ox 96% RA; Temp 98.7F bp Oral; sg 20:22 19:45 BP 120 / 59; Pulse 128bpm; Resp 18bpm; Pulse Ox 97% 2 lpm Nasal Cannula; ea ea 20:31 19:05 Respiratory: Airway is patent Respiratory effort is even, unlabored, Respiratory ea pattern is regular, symmetrical, ea 21:21 21:00 BP 102 / 64; Pulse 91bpm; Resp 23bpm; Pulse Ox 100% RA; ea ea
--- NOTE | 2018-10-21 21:43 | EDPHYS ---
Physician Documentation [facility] Name: Jaime Booth Age: 67 yrs Sex: Male : 1950 Arrival Date: 10/21/2018 Time: 18:09 Bed 7 Private MD: ED Physician Lucio Sesay HPI: 10/21 18:27 This 67 yrs old Male presents to ER via Ambulatory with unknown complaint. jr8 18:27 This 67 yrs old Male presents to ER via Ambulatory with complaints of fever, jr8 chills. 18:27 The patient reports fever, that was measured at 101.7 degrees Fahrenheit. Onset: The jr8 symptoms/episode began/occurred suddenly, today. Modifying factors: Started chemotherapy two days ago. Associated signs and symptoms: Pertinent positives: chills, cough, that is dry, Pertinent negatives: abdominal pain, altered mental status, diarrhea, nausea, sinus congestion, skin rash, vomiting. Severity of symptoms: Pain is currently a 0 / 10. The patient has not recently seen a physician. Patient is currently being treated for lung cancer and pancreatic cancer. He states he just started chemotherapy two days ago. Today the patient woke up with chills. His oncologist advised him to be evaluated into the ER. Historical: - Allergies: 18:15 No Known Allergies; sg - PMHx: 18:15 Cancer; Hypertension; sg - Immunization history:: Adult Immunizations up to date. - Social history:: Smoking status: Patient/guardian denies using tobacco. - Ebola Screening: : Patient negative for fever greater than or equal to 101.5 degrees Fahrenheit, and additional compatible Ebola Virus Disease symptoms Patient denies exposure to infectious person Patient denies travel to an Ebola-affected area in the 21 days before illness onset No symptoms or risks identified at this time. ROS: 18:27 Eyes: Negative for injury, pain, redness, and discharge, ENT: Negative for injury, jr8 pain, and discharge, Cardiovascular: Negative for chest pain, palpitations, and edema, Respiratory: Negative for shortness of breath, cough, wheezing, and pleuritic chest pain, Abdomen/GI: Negative for abdominal pain, nausea, vomiting, diarrhea, and constipation, Back: Negative for injury and pain, Skin: Negative for injury, rash, and discoloration, Neuro: Negative for headache, weakness, numbness, tingling, and seizure. 18:27 Constitutional: Positive for chills, fever, malaise. Exam: 18:31 Cardiovascular: Regular rate and rhythm with a normal S1 and S2. No gallops, murmurs, jr8 or rubs. Normal PMI, no JVD. No pulse deficits. Abdomen/GI: Soft, non-tender, with normal bowel sounds. No distension or tympany. No guarding or rebound. No evidence of tenderness throughout. Skin: Warm, dry with normal turgor. Normal color with no rashes, no lesions, and no evidence of cellulitis. MS/ Extremity: Pulses equal, no cyanosis. Neurovascular intact. Full, normal range of motion. Neuro: Awake and alert, GCS 15, oriented to person, place, time, and situation. Cranial nerves II-XII grossly intact. Motor strength 5/5 in all extremities. Sensory grossly intact. Cerebellar exam normal. Normal gait. 18:31 Constitutional: The patient appears alert, awake, obviously ill. 18:31 Eyes: Pupils: equal, round, and reactive to light and accomodation, equal, Extraocular movements: intact throughout, Conjunctiva: injected, bilaterally, Lids and lashes: drainage, from both eyes. 18:31 Respiratory: mild respiratory distress is noted, Respirations: nasal flaring, that is mild, tachypnea, that is mild, Breath sounds: Decreased left lower lung sounds, clear elsewhere. 18:42 Back: pain, that is moderate, normal spinal alignment noted. jr8 18:42 Musculoskeletal/extremity: 18:42 Musculoskeletal/extremity: Extremities: 2+ edema to bilateral lower extremities with skin changes consistent with PVD. Vital Signs: 18:13 BP 152 / 88; Pulse 112; Resp 19 S; Temp 98.7(O); Pulse Ox 96% on R/A; Weight 141.07 kg; bp Height 6 ft. 2 in. (187.96 cm); 19:06 BP 125 / 81; Pulse 98; Resp 31; Pulse Ox 95% ; bp 19:15 BP 114 / 85; Pulse 132; Resp 26; Pulse Ox 95% on R/A; ea 19:30 BP 118 / 86; Pulse 135; Resp 28; Pulse Ox 95% on R/A; ea 19:36 BP 129 / 78; Pulse 131; Resp 29; Pulse Ox 98% on 2 lpm NC; ea 19:45 BP 120 / 59; Pulse 128; Resp 25; Pulse Ox 97% on 2 lpm NC; ea 20:00 BP 111 / 53; Pulse 89; Resp 30; Pulse Ox 96% on 2 lpm NC; ea 20:17 BP 102 / 75; Pulse 89; Resp 28; Pulse Ox 97% on 2 lpm NC; ea 21:00 BP 102 / 64; Pulse 91; Resp 23; Pulse Ox 100% on 2 lpm NC; ea 22:13 BP 100 / 70; Pulse 88; Resp 21; Temp 98.2; Pulse Ox 96% on R/A; ea 18:13 Body Mass Index 39.93 (141.07 kg, 187.96 cm) bp 19:30 pt placed on 2 L of O2 ea MDM: 18:10 Patient medically screened. jr8 18:39 Differential diagnosis: pneumonia UTI, neutropenic fever, sepsis. Awaiting: labs jr8 results, X-ray results. ED course: Spoke with patient and his family regarding plan of care. Patient's family states that the patient has been moving slower today and a little weaker. 21:37 Data reviewed: vital signs, nurses notes, lab test result(s), EKG, radiologic studies, jr8 plain films. Data interpreted: Pulse oximetry: on room air is 98 %. Interpretation: normal. Counseling: I had a detailed discussion with the patient and/or guardian regarding: the historical points, exam findings, and any diagnostic results supporting the discharge/admit diagnosis, lab results, radiology results, the need for outpatient follow up, Oncology, to return to the emergency department if symptoms worsen or persist or if there are any questions or concerns that arise at home. Response to treatment: the patient's symptoms have markedly improved after treatment. ED course: Minor electrolyte imbalance which has been corrected. Clinically dehydrated but after fluids looks markedly better. No other acute lab findings. Possible pneumonia on CXR but based on labs and physical does not appear to have pneumonia. Also that spot is where family stated his neuroendocrine tumor is. Dr. Wolfe saw patient down here for consult. Between him, myself, patient, and family. All are in agreement that because there is no identifiable infectious source and feeling better. Ok to go home with close return precautions and close f/u tomorrow with oncologist. . 10/21 18:15 Order name: Basic Metabolic Panel; Complete Time: 19:20 bp 10/21 18:15 Order name: Blood Culture Adult (2) bp 10/21 18:15 Order name: CBC with Diff; Complete Time: 19:20 bp 10/21 18:15 Order name: Ckmb; Complete Time: 19:20 bp 10/21 18:15 Order name: CPK; Complete Time: 19:20 bp 10/21 18:15 Order name: Lactate; Complete Time: 19:20 bp 10/21 18:15 Order name: LFT's; Complete Time: 19:20 bp 10/21 18:15 Order name: Lipase; Complete Time: 19:20 bp 10/21 18:15 Order name: Procalcitonin; Complete Time: 19:46 bp 10/21 18:15 Order name: Protime (+inr); Complete Time: 18:59 bp 10/21 18:15 Order name: Ptt, Activated; Complete Time: 18:59 bp 10/21 18:15 Order name: Troponin (emerg Dept Use Only); Complete Time: 19:20 bp 10/21 18:15 Order name: Urine Microscopic Only; Complete Time: 22:03 bp 10/21 18:57 Order name: CBC Smear Scan; Complete Time: 19:20 EDMS 10/21 18:15 Order name: Chest Single View XRAY; Complete Time: 18:59 bp 10/21 18:15 Order name: Cardiac monitoring; Complete Time: 18:58 bp 10/21 20:03 Order name: Magnesium; Complete Time: 20:31 jr8 10/21 21:09 Order name: Urine Dipstick--Ancillary (enter results) cm6 10/21 21:09 Order name: Urine Dipstick-Ancillary; Complete Time: 21:42 EDMS 10/21 18:15 Order name: EKG - Nurse/Tech; Complete Time: 18:58 bp 10/21 18:15 Order name: IV Saline Lock - Large Bore; Complete Time: 18:58 bp 10/21 18:15 Order name: Labs collected and sent; Complete Time: 18:58 bp 10/21 18:15 Order name: O2 Per Protocol; Complete Time: 18:58 bp 10/21 18:15 Order name: O2 Sat Monitoring; Complete Time: 18:59 bp 04/18 18:15 Order name: Urine Dipstick-Ancillary (obtain specimen); Complete Time: 21:05 bp Administered Medications: 18:38 CANCELLED (Physician Discretion): NS 0.9% (30 ml/kg) 30 ml/kg IV at bolus once; Sepsis jr8 Protocol 18:45 Drug: NS 0.9% 1000 ml Route: IV; Rate: 1000 ml; Site: right wrist; bp 21:00 Follow up: Response: No adverse reaction; IV Status: Completed infusion; IV Intake: ea 1000ml 18:45 Drug: fentaNYL (PF) 50 mcg Route: IVP; Site: right wrist; bp 19:15 Follow up: Response: No adverse reaction; Pain is decreased ea 19:16 Drug: Tylenol 650 mg Route: PO; ea 20:18 Follow up: Response: No adverse reaction ea 19:30 Drug: Metoprolol 5 mg Route: IVP; Site: right forearm; ea 19:45 Follow up: Response: No adverse reaction; Marked relief of symptoms ea 19:48 Drug: Rocephin 1 grams Route: IV; Rate: calculated rate; Site: right forearm; ea 20:00 Follow up: Response: No adverse reaction; IV Status: Completed infusion; IV Intake: 10mlea 19:56 Drug: Zithromax 500 mg Route: IVPB; Infused Over: 1 hrs; Site: right wrist; ea 21:00 Follow up: Response: No adverse reaction; IV Status: Completed infusion; IV Intake: ea 250ml 20:18 Drug: Potassium Chloride 40 mEq Route: PO; ea 20:36 Follow up: Response: No adverse reaction ea 20:18 Drug: SOLU-Medrol 125 mg Route: IVP; Site: right forearm; ea 20:36 Follow up: Response: No adverse reaction ea 21:04 Drug: Magnesium Sulfate 2 grams Route: IVPB; Infused Over: 2 hrs; Site: right forearm; ea 22:00 Follow up: Response: No adverse reaction; IV Status: Completed infusion ea Disposition: 10/21/18 21:42 Discharged to Home. Impression: Hypomagnesemia, Hypokalemia, Dehydration. - Condition is Stable. - Discharge Instructions: Dehydration, Adult, Hypomagnesemia, Hypokalemia. - Medication Reconciliation Form, Thank You Letter, Antibiotic Education, Prescription Opioid Use form. - Follow up: Private Physician; When: Tomorrow; Reason: Recheck today's complaints, Continuance of care, Re-evaluation by your physician. - Problem is new. - Symptoms have improved. Addendum: 10/24/2018 00:16 Co-signature as Attending Physician, Lucio Sesay MD. g s Signatures: Dispatcher [employer] EDMS Donavan Harper, RN RN Vern Gomez, CHARISSE MCQUEEN jr8 Paula Kennedy RN RN ea Starr, Gregory, MD MD Syed Alfred RN RN bp Corrections: (The following items were deleted from the chart) 10/21 18:38 18:15 NS 0.9% (30 ml/kg) 30 ml/kg IV at bolus once; Sepsis Protocol ordered. bp jr8 22:18 21:42 10/21/2018 21:42 Discharged to Home. Impression: Hypomagnesemia; Hypokalemia; ea Dehydration. Condition is Stable. Forms are Medication Reconciliation Form, Thank You Letter, Antibiotic Education, Prescription Opioid Use. Follow up: Private Physician; When: Tomorrow; Reason: Recheck today's complaints, Continuance of care, Re-evaluation by your physician. Problem is new. Symptoms have improved. jr8
[2018-10-21 21:47] LABS: Urine Bacteria <20 /HPF (NONE SEEN); Urine Culture Reflex Order NOT NEEDED; Urine RBC <5 /HPF (NONE SEEN)
--- NOTE | 2018-10-22 10:58 | EKG ---
Test Date: 2018-10-21 Test Time: 19:16:52 Senior Business Architect: [id number] MEASUREMENT RESULTS: Intervals: Rate: 132 [place]: QRSD: 82 QT: 374 QTc: 554 [place]: P: OK: QRS: 85 T: 31 INTERPRETIVE STATEMENTS: Supraventricular tachycardia Septal infarct, age undetermined Abnormal ECG Compared to ECG 10/21/2018 18:54:20 Myocardial infarct finding now present Sinus tachycardia no longer present Electronically Signed On 10-22-18 10:56:44 CDT by Ever Fields
--- NOTE | 2018-10-22 10:58 | EKG ---
Test Date: 2018-10-21 Test Time: 18:54:20 Entrepreneurial Finance Professor: BP MEASUREMENT RESULTS: Intervals: Rate: 101 TN: 166 QRSD: 82 QT: 344 QTc: 446 [place]: P: 31 TN: 166 QRS: 84 T: 44 INTERPRETIVE STATEMENTS: Sinus tachycardia Possible Left atrial enlargement Borderline ECG No previous ECG available for comparison Electronically Signed On 10-22-18 10:56:46 CDT by Ever Fields
== END 2018-10-21 22:18 | disposition home or self-care (01) ==
LOC: ER 18:06
DX: E86.0 Dehydration (principal); E83.42 Hypomagnesemia; E87.6 Hypokalemia; C34.90 Malignant neoplasm of unspecified part of unspecified bronchus or lung; C25.9 Malignant neoplasm of pancreas, unspecified; I10 Essential (primary) hypertension; Z92.21 Personal history of antineoplastic chemotherapy
CPT/HCPCS: 93005 ×2; 87040 ×2; 85025; 80048; 36415; 83735; 82550; 85610; 80076; 83605; 85730; 84484; 82553; 83690; 84145; 71045; 99284; J0456; J3010; J3475; J0696; J7030; J2930; 81003; 81015